=== PATIENT | female | born 1935 | race Caucasian/White ===

== ENCOUNTER 2016-07-14 11:47 | Inpatient (IN) | payer MEDICARE ==
[2016-07-14] MEDS ORDERED: IPRATROPIUM 0.5 MG/2.5 ML NEBU INHALATION STA (12:02)
[2016-07-14] MEDS ORDERED: ENALAPRILAT 1.25 MG/ML 1 ML VIAL IVP STA (12:02)
[2016-07-14] MEDS ORDERED: LEVALBUTEROL NEB 1.25 MG/3 ML AMP INHALATION STA (12:02)
[2016-07-14] MEDS ORDERED: NITROGLYCERIN-D5W PMX 50 MG in DEXTROSE/WATER 1 250ML.BAG IV ONE (12:02)
[2016-07-14] MEDS ORDERED: DILTIAZEM 5 MG/ML 5 ML VIAL IVP STA (12:02)
[2016-07-14] MEDS ORDERED: DILTIAZEM 125 MG in SODIUM CHLORIDE 0.9% 100 ML IV ONE (12:02)
--- NOTE | 2016-07-14 12:12 | ED ---
General Adult HPI - General Chief complaint: Shortness of Breath Stated complaint: ELI Time Seen by Provider: 07/14/16 11:48 Source: patient, RN notes reviewed, old records reviewed Mode of arrival: EMS Limitations: no limitations - History of Present Illness Initial comments: This is an 81-year-old female to the ER for evaluation. Face patient presents for evaluation of shortness of breath severe shortness of breath in transport. Patient's brought in by transport and EMS as she is respiratory failure secondary to A. 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 History is obtained from EMS and the chart - Related Data Home Medications Medication Instructions Recorded Confirmed Montelukast [Singulair] 10 mg PO HS 09/29/13 05/13/16 Budesonide [Pulmicort] 1 mg INHALATION RT-BID 06/30/14 05/13/16 Allopurinol [Zyloprim] 300 mg PO DAILY 08/01/14 05/13/16 Calcitriol 0.25 mcg PO DAILY 08/01/14 05/13/16 Formoterol Fumarate [Perforomist] 20 mcg INHALATION RT-BID 08/01/14 05/13/16 Furosemide [Lasix] 40 mg PO DAILY 08/01/14 05/13/16 Insulin Glargine [Lantus] 40 unit SQ HS 08/01/14 05/13/16 predniSONE 5 mg PO SUTUTHSA 08/01/14 05/13/16 Acetaminophen [Tylenol] 650 mg PO Q6H PRN 05/04/16 05/13/16 Cholecalciferol [Vitamin D3] 2,000 unit PO DAILY 05/04/16 05/13/16 Insulin Aspart [NovoLOG] See Protocol SQ ACHS 05/04/16 05/13/16 Pregabalin [Lyrica] 75 mg PO BID 05/04/16 05/13/16 Verapamil HCl [Verapamil ER] 180 mg PO HS 05/04/16 05/13/16 predniSONE 2.5 mg PO MOWEFR 05/04/16 05/13/16 Potassium Chloride ER [K-Dur 10] 10 meq PO BID 05/13/16 05/13/16 Previous Rx's Medication Instructions Recorded Metoprolol Tartrate [Lopressor] 50 mg PO BID tab 07/10/14 Ferrous Sulfate [Feosol] 325 mg PO DAILY #30 tab 05/18/16 Pantoprazole Sodium [Protonix] 40 mg PO BID #60 tablet. 05/18/16 Allergies Allergy/AdvReac Type Severity Reaction Status Date / Time penicillin G Allergy Severe Unknown Verified 05/13/16 16:33 albuterol Allergy Unknown Verified 05/13/16 16:33 arformoterol tartrate Allergy Unknown Verified 05/13/16 16:33 [From Brovana] ceftriaxone sodium Allergy Unknown Verified 05/13/16 16:33 [From Rocephin] meperidine HCl [From Demerol] AdvReac Nausea & Verified 05/13/16 16:33 Vomiting Sulfa (Sulfonamide AdvReac Unknown Verified 05/13/16 18:33 Antibiotics) Review of Systems ROS Statement: Those systems with pertinent positive or pertinent negative responses have been documented in the HPI. ROS Other: All systems not noted in ROS Statement are negative. Past Medical History Past Medical History: Atrial Fibrillation, Asthma, COPD, Diabetes Mellitus, Hearing Disorder / Deafness, Hypertension, Osteoarthritis (OA), Pneumonia, Renal Disease, Vascular Disorder Additional Past Medical History / Comment(s): Sepsis History of Any Multi-Drug Resistant Organisms: None Reported Past Surgical History: AICD, Appendectomy, Heart Catheterization, Hysterectomy, Pacemaker Additional Past Surgical History / Comment(s): cataract surgery 2011 Past Anesthesia/Blood Transfusion Reactions: No Reported Reaction Type of Cardiac Device: Permanent Pacemaker Device Placement Date:: 2011 Past Psychological History: No Psychological Hx Reported Smoking Status: Never smoker Past Alcohol Use History: None Reported Past Drug Use History: None Reported - Past Family History Mother Family Medical History: Cancer Additional Family Medical History / Comment(s): Hodgkins General Exam Limitations: no limitations General appearance: alert, anxious, in distress Head exam: Present: atraumatic, normocephalic, normal inspection Eye exam: Present: normal appearance, PERRL, EOMI. Absent: scleral icterus, conjunctival injection, periorbital swelling ENT exam: Present: normal exam, mucous membranes moist Neck exam: Present: normal inspection. Absent: tenderness, meningismus, lymphadenopathy Respiratory exam: Present: normal lung sounds bilaterally, respiratory distress , rales, accessory muscle use, decreased breath sounds, prolonged expiratory. Absent: wheezes, rhonchi, stridor Cardiovascular Exam: Present: tachycardia, irregular rhythm, normal heart sounds. Absent: systolic murmur, diastolic murmur, rubs, gallop, clicks GI/Abdominal exam: Present: soft, normal bowel sounds. Absent: distended, tenderness, guarding, rebound, rigid Extremities exam: Present: normal inspection, full ROM, normal capillary refill. Absent: tenderness, pedal edema, joint swelling, calf tenderness Back exam: Present: normal inspection Neurological exam: Present: alert, oriented X3, CN II-XII intact Psychiatric exam: Present: normal affect, normal mood Skin exam: Present: warm, dry, intact, normal color. Absent: rash Course Vital Signs 07/14/16 11:52 Temperature 97.5 F L Pulse Rate 114 H Respiratory 25 H Rate Blood Pressure 190/104 O2 Sat by Pulse 90 L Oximetry - Reevaluation(s) Reevaluation #1: 07/14/16 12:41 Did speak with transient physician regarding patient Reevaluation #2: 07/14/16 12:41 Patient notes a be in A. fib with RVR with severe hypertension, patient will be treated hemodynamically EKG Findings - EKG Comments: EKG Findings:: EKG shows A. fib with RVR rate 136, QRS 100, QTC 4:30 Medical Decision Making - Medical Decision Making 81 female the ER for evaluation of severe shortness of breath as a transfer patient, on BiPAP A. fib with RVR severe hypertension CHF with acute pulmonary edema secondary to hypertensive emergency, also with Cockman is COPD. Patient will be admitted for treatment, cardiopulmonary resuscitation and monitoring Critical Care Time Critical Care Time: Yes Total Critical Care Time: 31 Disposition Clinical Impression: Atrial fibrillation, Congestive heart failure, COPD exacerbation, Acute on chronic renal failure, Acute respiratory failure, Acute exacerbation of chronic obstructive airways disease, Systolic congestive heart failure Disposition: ADMITTED IP TO THIS HOSP Condition: Serious
[2016-07-14] MEDS ORDERED: NITROGLYCERIN SL TABS 0.4 MG TAB SUBLINGUAL PRN (12:31)
[2016-07-14] MEDS: SODIUM CHLORIDE 0.9% 1,000 ML IV SCH ×2 (13:14→23:32)
[2016-07-14 13:54] LABS: Calcium 9.7 mg/dL (8.4-10.2); Potassium 4.7 mmol/L (3.5-5.1); Total Bilirubin 0.6 mg/dL (0.2-1.3); Total Protein 6.6 g/dL (6.3-8.2)
--- NOTE | 2016-07-14 13:56 | XR ---
EXAMINATION TYPE: XR chest 1V portable DATE OF EXAM: 07/14/2016 1:51 PM CLINICAL HISTORY: Difficulty breathing and CHF progress study. TECHNIQUE: Single AP portable upright view of the chest is obtained. COMPARISON: Chest x-ray from one day earlier. FINDINGS: There is persistent cardiomegaly with dual lead pacemaker and atherosclerotic thoracic aor ta. There is persistent small bilateral pleural effusions with right basilar atelectasis and/or infil trate. There is new left hilar opacity consistent with edema and/or infiltrate. Upper lungs remain cl ear without pneumothorax. Osseous structures are intact. IMPRESSION: Cardiomegaly with small right greater than left bilateral pleural effusions and right bas ilar atelectasis and/or infiltrate all redemonstrated, new left mid lung edema and/or infiltrate is n oted.
[2016-07-14 14:06] LABS: INR 1.1 (<1.1); Partial Thromboplastin Time 21.6 sec (22.0-30.0); Prothrombin Time 11.1 sec (9.0-12.0)
[2016-07-14 14:12] LABS: Glucose,Whole Blood 132 mg/dL (75-99)
[2016-07-14 14:24] LABS: Anisocytosis Slight; Basophils % (A) 0 %; CH 30.5; Eosinophils % (A) 0 %; HCT 42.5 % (34.0-46.0); Large Platelets Flag Marked; Luc % (Auto) 1; Lymphocytes # (A) 0.8 k/uL (1.0-4.8); Lymphocytes % (A) 6 %; MCH 29.8 pg (25.0-35.0); MCHC 31.2 g/dL (31.0-37.0); MCV 95.7 fL (80.0-100.0); Monocytes # (A) 0.9 k/uL (0-1.0); Monocytes % (A) 7 %; Neutrophils # (A) 11.7 k/uL (1.3-7.7); Neutrophils % (A) 86 %; RBC 4.43 m/uL (3.80-5.40); RDW 16.3 % (11.5-15.5); WBC 13.6 k/uL (3.8-10.6); WBC (Perox) 13.45
[2016-07-14 14:25] LABS: HGB 13.2 gm/dL (11.4-16.0)
[2016-07-14 14:27] LABS: Large Platelets Present; Manual Review Performed
[2016-07-14 14:27] LABS: Troponin I 0.055 ng/mL (0.000-0.034)
[2016-07-14] MEDS: IPRATROPIUM 0.5 MG/2.5 ML NEBU INHALATION SCH ×3 (15:47→23:02)
[2016-07-14] MEDS: LEVALBUTEROL NEB (CONC) 1.25 MG/0.5 ML AMP INHALATION SCH ×3 (15:47→23:02)
[2016-07-14] MEDS ORDERED: IPRATROPIUM-ALBUTEROL 3 ML NEB INHALATION SCH (16:00)
[2016-07-14] MEDS: methylPREDNISolone SOD SUCCI 125 MG/2 ML VIAL IV SCH (18:08)
--- NOTE | 2016-07-14 18:37 | P.CNPUL ---
History of Present Illness Consult date: 07/14/16 Reason for consult: dyspnea History of present illness: 81-year-old female patient, obese with known history of chronic atrial fibrillation, CHF with diastolic dysfunction, sick sinus syndrome with previous pacemaker insertion along with hypertension and hyperlipidemia and peripheral vascular disease who comes into the hospital because of worsening shortness of breath. She has had hospitalizations over the past few years , the most recent of which was in April 2016 when the patient was in the hospital for GI bleeding. During this current admission, the patient came in for increased shortness of breath. She was a 2 fibrillation with rapid ventricular response. She was transferred from [place] on a BiPAP and subsequently she was admitted to the intensive care unit for further evaluation and management. Currently the patient on a BiPAP at a pressure of 10 over 5 and FiO2 of 40%. She is also on a Cardizem drip at the rate of 10 mg an hour. Chest x-ray showed cardiomegaly with small right more than left sided pleural effusion and right basilar infiltrate and there is a new left midlung infiltration also noted. The patient was suspected to have acute CHF and the patient was started on IV Lasix 40 mg every 12 hours and she is producing adequate amount of urine output. Nevertheless, the possibility of a pneumonia cannot be completely excluded. She has no fever. No chills. No significant sputum production. No DVT or pulmonary embolism. No aspiration. She is a lifetime nonsmoker. She has been reported to have chronic persistent bronchial asthma maintained on Pulmicort Respules twice a day and Xopenex tablets treatments 4 times a day [id number] and daily prednisone alternating between 2.5 and 5 mg daily basis. Yesterday, the patient was seen in our office and her prednisone dose was increased up to 30 mg by mouth daily. Despite this change, no major improvement and the patient and up coming to the hospital for further evaluation and treatment. There is a minimal troponin leak with a first set being at 0.05, EKG showing atrial fibrillation with rapid ventricular response without any evidence of ST segment elevations. Review of Systems 12 point review of system was done and the positive findings are old mentionable history of present illness Past Medical History Past Medical History: Atrial Fibrillation, Asthma, COPD, Diabetes Mellitus, GI Bleed, Hearing Disorder / Deafness, Hypertension, Osteoarthritis (OA), Pneumonia , Renal Disease, Vascular Disorder Additional Past Medical History / Comment(s): Chronic severe persistent bronchial asthma, chronic renal failure, morbid obesity, chronic atrial fibrillation, previous history of GI bleed attributed to anticoagulation with warfarin and diverticulosis and pyloric polyp, large antral ulceration at the site of a prior polypectomy, and based on that the patient was taken off Coumadin, diabetes mellitus, osteoarthritis, peripheral vascular disease, sick sinus syndrome and the patient has a permanent pacemaker in place, hypertension History of Any Multi-Drug Resistant Organisms: None Reported Past Surgical History: Appendectomy, Heart Catheterization, Hysterectomy, Pacemaker Additional Past Surgical History / Comment(s): cataract surgery 2011 Past Anesthesia/Blood Transfusion Reactions: No Reported Reaction Type of Cardiac Device: Permanent Pacemaker Device Placement Date:: 2011 Past Psychological History: No Psychological Hx Reported Smoking Status: Never smoker Past Alcohol Use History: None Reported Past Drug Use History: None Reported - Past Family History Mother Family Medical History: Cancer Additional Family Medical History / Comment(s): Hodgkins Medications and Allergies Home Medications Medication Instructions Recorded Confirmed Type Montelukast [Singulair] 10 mg PO HS 09/29/13 07/14/16 History Budesonide [Pulmicort] 0.5 mg INHALATION RT-BID 06/30/14 07/14/16 History Calcitriol 0.25 mcg PO DAILY 08/01/14 07/14/16 History Formoterol Fumarate [Perforomist] 20 mcg INHALATION RT-BID 08/01/14 07/14/16 History Furosemide [Lasix] 40 mg PO DAILY 08/01/14 07/14/16 History Insulin Glargine [Lantus] 10 unit SQ HS 08/01/14 07/14/16 History predniSONE 5 mg PO SUTUTHSA PRN 08/01/14 07/14/16 History Insulin Aspart [NovoLOG] See Protocol SQ ACHS 05/04/16 07/14/16 History Pregabalin [Lyrica] 75 mg PO BID 05/04/16 07/14/16 History Verapamil HCl [Verapamil ER] 180 mg PO HS 05/04/16 07/14/16 History predniSONE 2.5 mg PO MOWEFR PRN 05/04/16 07/14/16 History Allopurinol [Zyloprim] 100 mg PO DAILY 07/14/16 07/14/16 History Azithromycin [Zithromax Z-pack] See Taper PO DIRECTED 07/14/16 07/14/16 History Docusate [Colace] 100 mg PO DAILY PRN 07/14/16 07/14/16 History Ipratropium Nebulized [Atrovent 0.5 mg INHALATION RT-Q6H PRN 07/14/16 07/14/16 History Nebulized] Levalbuterol HCl [Xopenex 0.63 mg INHALATION RT-Q4H PRN 07/14/16 07/14/16 History Nebulized] Pantoprazole Sodium [Protonix] 40 mg PO DAILY 07/14/16 07/14/16 History predniSONE See Taper PO DAILY 07/14/16 07/14/16 History Allergies Allergy/AdvReac Type Severity Reaction Status Date / Time penicillin G Allergy Severe Anaphylaxis Verified 07/14/16 14:22 albuterol Allergy Rapid Verified 07/14/16 15:20 Heart Rate arformoterol tartrate Allergy Dyspnea Verified 07/14/16 15:20 [From Brovana] ceftriaxone sodium Allergy SOB Verified 07/14/16 14:22 [From Rocephin] sulfamethoxazole Allergy Unknown Verified 07/14/16 15:20 [From Bactrim] trimethoprim [From Bactrim] Allergy Unknown Verified 07/14/16 15:20 meperidine HCl [From Demerol] AdvReac Nausea & Verified 07/14/16 13:49 Vomiting Sulfa (Sulfonamide AdvReac Unknown Verified 07/14/16 15:20 Antibiotics) Physical Exam Vitals: Vital Signs Pulse BP Pulse Ox 07/14/16 14:22 99 07/14/16 13:45 123/62 07/14/16 13:40 166/77 07/14/16 13:30 170/72 07/14/16 13:13 196/96 07/14/16 13:05 112 H 07/14/16 12:50 93 Intake and Output 07/14/16 07/14/16 07/14/16 06:59 14:59 22:59 Other: Weight 92 kg Patient Weight 07/15/16 06:59 Weight 92 kg Obese, in mild degree of respiratory distress and the patient is able to tolerate a full face BiPAP mask.Head exam was generally normal. There was no scleral icterus or corneal arcus. Mucous membranes were moist. Neck is supple and there is significant crowding of the posterior oropharynx. Mild JVDs and there is no goiter or neck masses. Lungs sounds are diminished bilaterally along with some crackles at lung bases and few scattered expiratory wheeze. Heart sounds are irregular, tachycardic, positive S1-S2 and there is no significant murmurs appreciated.Abdominal exam revealed normal bowel sounds. The abdomen was soft, non-tender, and without masses, organomegaly, or appreciable enlargement of the abdominal aorta. Extremities show +1 pitting edema and there is no cyanosis or clubbing at this point. Neurologically, the patient is awake and following commands and answering questions appropriately. Results - Laboratory Findings CBC and BMP: 07/14/16 13:52 07/14/16 13:20 PT/INR, D-dimer PT 11.1 sec (9.0-12.0) 07/14/16 13:20 INR 1.1 (<1.1) 07/14/16 13:20 Abnormal lab findings: Abnormal Labs 07/14/16 07/14/16 07/14/16 13:20 13:20 13:20 WBC RDW Plt Count Neutrophils # Lymphocytes # APTT 21.6 L BUN 60 H Creatinine 1.76 H Glucose 139 H POC Glucose (mg/dL) Total Creatine Kinase 24 L Troponin I 0.055 H* 07/14/16 07/14/16 13:52 14:10 WBC 13.6 H RDW 16.3 H Plt Count 72 L D Neutrophils # 11.7 H Lymphocytes # 0.8 L APTT BUN Creatinine Glucose POC Glucose (mg/dL) 132 H Total Creatine Kinase Troponin I - Diagnostic Findings Chest x-ray: image reviewed Assessment and Plan Plan: Assessment 1 acute shortness of breath secondary to an acute CHF exacerbation. The patient has increased bilateral pulmonary vascular markings probably due to pulmonary edema in a sedation with CHF, and a superimposed pneumonia is felt to be less likely at this point. 2 acute hypoxic respiratory failure, patient is currently BiPAP dependent 3 acute asthma exacerbation 4 morbid obesity 5 chronic renal failure 6 atrial fibrillation fibrillation with rapid ventricular response currently on a Cardizem drip for rate control 7 mild troponin leak without evidence of any significant EKG changes, patient is free of any angina 8 permanent pacemaker insertion for sick sinus syndrome 9 diabetes mellitus 10 severe persistent bronchial asthma at baseline 11 GI bleed attributed to antral ulceration and the patient has been off anticoagulation for now 12 peripheral vascular disease 13 osteoarthritis 14 hypertension Plan The patient will be kept on a BiPAP throughout the night. Continue diuretics with IV Lasix 40 mg every 8 hours. Cover the patient with empiric antibiotics and will put the patient on Levaquin 500 mg every 24 hours. Continue bronchodilators. Continue systemic steroids. Cardizem drip for rate control. No and to coagulation based on her recent history of GI bleed. Echocardiogram to be repeated to assess the patient's LV function. Monitor renal function. Monitor electrolytes. Monitor cardiac enzymes. Cardiology consultation. We' ll continue to follow make further recommendations based on her progress.
[2016-07-14] MEDS ORDERED: LEVOFLOXACIN 500 MG TAB PO SCH (19:00)
--- NOTE | 2016-07-14 19:16 | CONS ---
DATE OF CONSULTATION: The patient is an 81-year-old female who was transferred from [facility] for further evaluation. Patient has a known history of severe bronchial asthma has been followed by Dr. Flaherty as well as a history of chronic atrial fibrillation followed by Dr. Citlalli Her. A few days ago she started to have dyspnea and a cough. She was seen in the emergency room and subsequently seen by Dr. Flaherty. She was started back on her diuretics and given antibiotics. Last night her breathing got much worse and she became quite dyspneic and tachypneic. She was seen in the emergency room in [place] and subsequently transferred to [facility]. The patient history is obtained from the daughter. She has no history of obstructive coronary artery disease or history of congestive heart failure according to her. She has underwent cardiac catheterization in the past and had no evidence of obstructive coronary artery disease. She had no dizziness, palpitation or syncope. She had a chronic atrial fibrillation, but has not been anticoagulated since for the last month or so because of significant GI bleeding with a hemoglobin down to 6. She has no clear PND, orthopnea. She has chronic peripheral edema but not any worse now. Her coronary risk factors are positive for history of diabetes, hypertension. She is a nonsmoker. Her lipid profile is not available to me. REVIEW OF SYSTEMS: RESPIRATORY SYSTEM: She has bronchial asthma, history of cough. No fever. GI system: She has GI bleeding as noted. system: No dysuria or hematuria. Nervous system: No history of stroke or seizure. PHYSICAL EXAMINATION: She is an 81-year-old female, alert, tachypnea, answering questions very briefly. Blood pressure 123/60 with a heart rate running in the one teens to 120s on IV Cardizem. HEAD: Normocephalic. EYES: Sclerae anicteric. NECK: No bruit. Lungs with scattered wheezes bilaterally and decreased breath sounds. HEART: Irregularly irregular. S1, S2, no S3, with systolic murmur. No diastolic murmur. No rub. ABDOMEN: Soft, obese, nontender, positive bowel sounds. No organomegaly. EXTREMITIES: Trace to 1+ edema bilaterally. Lab data showed a BUN and creatinine 60 and 1.76 which is better than she had before. Most recently in April she was 2.59. Her potassium 4.7. Hemoglobin of 13.2. White blood cells 13.6. Troponin 0.055. Her EKG revealed atrial fibrillation with rapid ventricular response and nonspecific ST-T wave changes. Her chest x-ray revealed small bilateral pleural effusion with possible new infiltrate. IMPRESSION: 1. Worsening dyspnea with underlying bronchial asthma, most likely started as an upper respiratory infection, questionable pneumonia at this time. Patient may have some element of fluid overload, probably worsened by the primary lung issue. I do not believe that we are dealing with primary cardiac issue. 2. Chronic atrial fibrillation, not anticoagulated because of gastrointestinal bleeding. 3. History of bronchial asthma. 4. History of hypertension. 5. Diabetes mellitus. RECOMMENDATIONS: From the cardiac standpoint, we will continue on IV Cardizem at this time. Patient has been started on nystatin. I will cut down the dose of her aspirin. I will give her IV diuretics. I will obtain echocardiogram with Doppler. She will be seen by Dr. David regarding her lung status and depending on her progress, further recommendation will be made. Thank you for this consult. We will follow with you.
[2016-07-14 19:25] LABS: Appearance,Urine Clear (Clear); Bacteria,Urine Rare /hpf; Bilirubin,Urine Negative (Negative); Glucose,Urine (UA) Negative (Negative); Ketones,Urine Negative (Negative); Leukocyte Esterase,Urine Negative (Negative); Mucus,Urine Rare /hpf; Nitrite,Urine Negative (Negative); Particle Count 1175; Protein,Urine 1+ (Negative); RBC,Urine 4 /hpf (0-5); Specific Gravity,Urine 1.007 (1.001-1.035); Squamous Epithelial Cell,Urine <1 /hpf (0-4); UA Billing (MACRO vs. MICRO) MICRO; Urobilinogen,Urine <2.0 mg/dL (<2.0); WBC,Urine 2 /hpf (0-5)
[2016-07-14 19:56] LABS: Creatine Kinase <20 U/L (30-135)
[2016-07-14 20:07] LABS: Creatine Kinase MB 1.2 ng/mL (0.0-2.4)
[2016-07-14 20:09] LABS: Troponin I 0.097 ng/mL (0.000-0.034)
[2016-07-14] MEDS: FUROSEMIDE 10 MG/ML 4 ML VIAL IV SCH (20:33)
[2016-07-14] MEDS: METOPROLOL TARTRATE 50 MG TAB PO SCH (20:33)
[2016-07-14] MEDS ORDERED: DILTIAZEM 125 MG in SODIUM CHLORIDE 0.9% 100 ML IV SCH (23:30)
[2016-07-15] MEDS: methylPREDNISolone SOD SUCCI 125 MG/2 ML VIAL IV SCH ×2 (01:02→06:17)
[2016-07-15] MEDS: LEVALBUTEROL NEB (CONC) 1.25 MG/0.5 ML AMP INHALATION SCH ×6 (03:32→23:38)
[2016-07-15] MEDS: IPRATROPIUM 0.5 MG/2.5 ML NEBU INHALATION SCH ×6 (03:32→23:38)
[2016-07-15 04:22] LABS: Anisocytosis Slight; Basophils % (A) 0 %; CH 30.8; CHCM 32.7; Eosinophils % (A) 0 %; HCT 39.7 % (34.0-46.0); HDW 2.49; HGB 13.1 gm/dL (11.4-16.0); Large Platelets Flag Marked; Luc # (Auto) 0.05; Luc % (Auto) 1; Lymphocytes # (A) 0.5 k/uL (1.0-4.8); Lymphocytes % (A) 7 %; MCH 31.4 pg (25.0-35.0); MCHC 33.1 g/dL (31.0-37.0); MCV 94.8 fL (80.0-100.0); Mean Platelet Volume 16.3; Monocytes # (A) 0.2 k/uL (0-1.0); Monocytes % (A) 2 %; Neutrophils # (A) 6.5 k/uL (1.3-7.7); Neutrophils % (A) 90 %; RBC 4.19 m/uL (3.80-5.40); RDW 16.3 % (11.5-15.5); WBC 7.2 k/uL (3.8-10.6); WBC (Perox) 7.83
[2016-07-15 04:50] LABS: Calcium 8.8 mg/dL (8.4-10.2); Total Bilirubin 0.6 mg/dL (0.2-1.3); Total Protein 5.7 g/dL (6.3-8.2)
[2016-07-15 04:52] LABS: Potassium 4.7 mmol/L (3.5-5.1)
[2016-07-15 07:43] LABS: Glucose,Whole Blood 245 mg/dL (75-99)
--- NOTE | 2016-07-15 08:11 | XR ---
EXAMINATION TYPE: XR chest 1V DATE OF EXAM: 07/15/2016 6:54 AM COMPARISON: 07/14/2016 HISTORY: 81-year-old female pneumonia TECHNIQUE: Single frontal view of the chest is obtained. FINDINGS: Left anterior chest wall pacemaker generator with right atrial and right ventricular leads. Heart remains mildly enlarged without discrete cartilage calcifications. There is continued small rig ht greater than left pleural effusions with prominent adjacent right basilar opacity. There is a impr ovement in the previously seen airspace opacity at the left mid lung. IMPRESSION: 1. Findings suggest CHF with improving pulmonary edema particularly in the left midlung. 2. However, there are persistent small right greater than left pleural effusions and prominent adjace nt pulmonary edema or infiltrate at the right base.
[2016-07-15] MEDS: SODIUM CHLORIDE 0.9% 1,000 ML IV SCH ×2 (08:23→17:39)
[2016-07-15] MEDS: INSULIN LISPRO (humaLOG) 300 UNIT/3 ML VIAL SQ SCH ×4 (08:23→20:56)
[2016-07-15] MEDS ORDERED: hydrALAZINE HCL 25 MG TAB PO SCH (09:00)
[2016-07-15] MEDS ORDERED: ASPIRIN 325 MG TAB PO SCH (09:00)
[2016-07-15] MEDS: FUROSEMIDE 10 MG/ML 4 ML VIAL IV SCH ×2 (09:06→20:36)
[2016-07-15] MEDS: ATORVASTATIN 80 MG TAB PO SCH (09:08)
[2016-07-15] MEDS: PANTOPRAZOLE 40 MG TABLET PO SCH (09:08)
[2016-07-15] MEDS: METOPROLOL TARTRATE 50 MG TAB PO SCH ×2 (09:08→20:00)
[2016-07-15] MEDS: ASPIRIN 81 MG CHEW PO SCH (09:08)
[2016-07-15] MEDS: VERAPAMIL SR 180 MG TABLET.ER PO SCH ×2 (09:09→20:00)
--- NOTE | 2016-07-15 09:37 | PN ---
Mrs. Juan is an 81-year-old female with known history of chronic atrial fibrillation, not anticoagulated because of recent episode of GI bleeding, history of bronchial asthma, who presented with symptoms of progressive dyspnea with prior cough, most likely appears to be a combination of upper respiratory infection and fluid overload. She is feeling much better and looks much better today. Her breathing is better. She is diuresing well. She continued to be in atrial fibrillation, but her rate is controlled. She is on IV Cardizem. She denies any chest pain. No dizziness. During the night, her blood pressure was elevated but under better control now. She denies any nausea or vomiting. She continues to be on aspirin once a day, Lipitor 80 mg daily, Lasix 40 mg IV q.12 hours, IV Cardizem and metoprolol 50 mg twice a day. PHYSICAL EXAMINATION: Blood pressure running in the 160s with the heart in the 80s. LUNGS: With decreased air exchange with few crackles and wheezes. HEART: Irregularly irregular, S1, S2, no S3, no rub with systolic murmur. ABDOMEN: Soft, obese, nontender. EXTREMITIES: No significant edema. Lab data revealed a BUN and creatinine 63 and 1.7, unchanged compared with yesterday. Potassium 4.7. Her hemoglobin is 13.1. IMPRESSION: 1. Progressive dyspnea on exertion, respiratory failure improving, probably combination of diastolic dysfunction heart failure and upper respiratory infection. 2. Chronic atrial fibrillation, not anticoagulated because of prior history of severe bleeding. 3. Renal failure, chronic. 4. History of peripheral vascular disease. 5. Minimal elevation of troponin most likely represents a type II event. RECOMMENDATION: From the cardiac standpoint, I will switch her to oral verapamil which she was on. I will continue the IV Lasix for another 24 hours. Follow her renal function. We will follow her blood pressure. It has been under good control now. If needed, hydralazine can be added to her regimen. Will review the results of her echocardiogram and depending on her progress, further recommendations to be made. Her chest x-ray today shows improvement. LAUREN
--- NOTE | 2016-07-15 09:44 | ECHOF ---
Referral Reason:afib MEASUREMENTS -------- HEIGHT: 162.6 cm WEIGHT: 91.6 kg BP: 121/94 RVIDd: 2.6 cm (< 3.3) IVSd: 1.5 cm (0.6 - 1.1) LVIDd: 3.8 cm (3.9 - 5.3) LVPWd: 1.5 cm (0.6 - 1.1) IVSs: 1.7 cm LVIDs: 3.0 cm LVPWs: 2.2 cm LA Diam: 4.9 cm (2.7 - 3.8) LAESV Index (A-L): 40.39 ml/m Ao Diam: 2.8 cm (2.0 - 3.7) AV Cusp: 2.2 cm (1.5 - 2.6) RAP: 5.00 mmHg RVSP: 41.95 mmHg FINDINGS -------- Atrial fibrillation. This was a technically good study. The left ventricular size is normal. There is moderate concentric left ventricular hypertrophy. Overall left ventricular systolic function is mild-moderately impaired with, an EF between 40 - 45 %. ant septum is hypokinetic. The right ventricle is normal in size. LA is severely dilated >40 ml/m2 The right atrium is normal in size. Aortic valve is trileaflet and is mildly thickened. Mild mitral annular calcification present. Mild mitral regurgitation is present. Mild tricuspid regurgitation present. There is mild pulmonary hypertension. The right ventricular systolic pressure, as measured by Doppler, is 41.95mmHg. Pulmonic valve appears structurally normal. The aortic root size is normal. Normal inferior vena cava with normal inspiratory collapse consistent with estimated right atrial pressure of 5 mmHg. There is no pericardial effusion. CONCLUSIONS -------- 1. Atrial fibrillation. 2. Aortic valve is trileaflet and is mildly thickened. 3. Mild mitral annular calcification present. 4. Mild mitral regurgitation is present. 5. Mild tricuspid regurgitation present. 6. There is mild pulmonary hypertension. 7. The right ventricular systolic pressure, as measured by Doppler, is 41.95mmHg. 8. Pulmonic valve appears structurally normal. 9. The aortic root size is normal. 10. Normal inferior vena cava with normal inspiratory collapse consistent with estimated right atrial pressure of 5 mmHg. 11. There is no pericardial effusion. 12. This was a technically good study. 13. The left ventricular size is normal. 14. There is moderate concentric left ventricular hypertrophy. 15. Overall left ventricular systolic function is mild-moderately impaired with, an EF between 40 - 45 %. 16. ant septum is hypokinetic. 17. The right ventricle is normal in size. 18. LA is severely dilated >40 ml/m2 19. The right atrium is normal in size. [employer]: Jeannie Stuart RDCS
[2016-07-15] MEDS: PREGABALIN 75 MG CAP PO SCH ×2 (11:24→19:59)
[2016-07-15] MEDS: ALLOPURINOL 100 MG TAB PO SCH (11:24)
[2016-07-15] MEDS ORDERED: MAGNESIUM HYDROXIDE 2,400 MG/10 ML CUP PO PRN (11:31)
[2016-07-15 12:23] LABS: Glucose,Whole Blood 260 mg/dL (75-99)
[2016-07-15] MEDS: TIGECYCLINE 50 MG in SODIUM CHLORIDE 0.9% 50 ML IVPB SCH ×2 (12:29→20:59)
[2016-07-15 12:40] LABS: Hemoglobin A1C 6.4 % (4.2-6.1)
--- NOTE | 2016-07-15 14:02 | HP ---
DATE OF ADMISSION: 07/14/2016 PRESENTING COMPLAINT: Short of breath. HISTORY OF PRESENTING COMPLAINT: A very pleasant 81-year-old patient who follows with family doctor, Dr. Turner. Patient's environmental programs specialist is Dr. David. Patient's chronic stable medical conditions include to atrial fibrillation, diabetes mellitus type 2, decreased hearing, hypertension, osteoarthritis, obesity, atrial fibrillation, diverticulosis, large antral ulceration at the site of prior polypectomy, osteoarthritis, peripheral artery disease, sick sinus syndrome with permanent pacemaker. Patient presented with 4 days of increasing shortness of breath, wheezing, minimal cough, no sputum production. No fever. Tired and rundown. The patient was admitted for the same. REVIEW OF SYSTEMS: CONSTITUTIONAL: Tired. HEENT: Decreased hearing. RESPIRATORY: As above. CARDIOVASCULAR: None. GASTROINTESTINAL: Heartburn. GENITOURINARY: None. MUSCULOSKELETAL: Aches and pains in the joints. DERMATOLOGICAL: None. HEMATOLOGIC: None. LYMPHATICS: None. PSYCHIATRY: None. NEUROLOGICAL: None. Past history of atrial fibrillation, hypertension, asthma, chronic kidney disease, diabetes, osteoarthritis, peripheral artery disease, sick sinus syndrome with permanent pacemaker, GI bleed due to antral ulceration, peripheral artery disease. PAST SURGICAL HISTORY: Appendectomy, cardiac catheterization, hysterectomy, pacemaker, cataract surgery. SOCIAL HISTORY: Lives with daughter. No smoking. No alcohol. Family history of Hodgkin's disease. HOME MEDICATIONS: 1. Colace 100 mg p.o. daily p.r.n. 2. Atrovent 0.5 nebulizer q.6 p.r.n. 3. Xopenex 0.63 inhalations q.4 p.r.n. 4. Pulmicort 0.5 b.i.d. 5. Perforomist 20 mcg b.i.d. 6. NovoLog per scale. 7. Lantus 10 units subcu q.h.s. 8. Verapamil ER 180 mg p.o. q.h.s. 9. Lyrica 75 mg p.o. b.i.d. 10. Protonix 40 mg p.o. daily. 11. Singulair 10 mg q.h.s. 12. Lopressor 50 mg p.o. b.i.d. 13. Prednisone 5 mg on Monday, Monday, , Monday and 2.5 on Monday, Monday, Monday. 14. Allopurinol 100 mg a day. 15. Iron 325 p.o. daily. 16. Calcitrol 0.25 mcg p.o. daily. 17. Prednisone taper. 18. Lasix 40 mg p.o. daily. 19. Z-Andres. ALLERGIES TO PENICILLIN, ALBUTEROL, BROVANA, ROCEPHIN, BACTRIM, SULFUR. On examination, vital signs on presentation: Temperature 97.5, pulse 114, respiration 25, blood pressure 190/104, pulse ox 98% nonrebreather. GENERAL APPEARANCE: Well built, BMI of 37, sitting up, tired -appearing short of breath. EYES: Pupils equal. Conjunctivae normal. HEENT: Oral cavity normal. NECK: JVD unable to assess. Mass not palpable. RESPIRATORY: Effort increased. LUNGS: Diminished breath sounds prolonged expiration. CARDIOVASCULAR: First and second seconds are normal. No edema. ABDOMEN: Soft, nontender. Liver and spleen not palpable. LYMPHATIC: No lymph node palpable in or axillae. PSYCHIATRY: Alert and oriented x3. Mood and affect normal. NEUROLOGICAL: Pupils equal. Cranial nerves grossly intact. Power and sensation grossly intact. INVESTIGATIONS: White count 13.6, hemoglobin 13.2. Potassium 4.7, BUN 60, creatinine 1.76. Troponin 0.055, 0.097. EKG: Atrial fibrillation with rapid ventricular response on presentation. Chest x-ray shows possible infiltrate, expiratory film. 2-D echocardiogram shows EF of 40% to 45%. ASSESSMENT: 1. Acute exacerbation of moderate persistent asthma. 2. Possible acute congestive heart failure exacerbation from systolic dysfunction; ejection fraction 40% to 45%. 3. Persistent atrial fibrillation with rapid ventricular rate. 4. Essential hypertension. 5. 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 6. Peripheral artery disease. 7. Primary osteoarthritis in multiple joints, bilateral. 8. Sick sinus syndrome with a pacemaker in place. 9. Troponin leak, probably from hemodynamic instability, doubt acute coronary syndrome. PLAN: Patient is on IV Solu-Medrol, Xopenex, IV Lasix. Cardiology and Pulmonary are consulted. Patient is in the ICU. Care was discussed with the patient.
--- NOTE | 2016-07-15 15:53 | P.PN ---
Subjective 81-year-old female patient, obese with known history of chronic atrial fibrillation, CHF with diastolic dysfunction, sick sinus syndrome with previous pacemaker insertion along with hypertension and hyperlipidemia and peripheral vascular disease who comes into the hospital because of worsening shortness of breath. She has had hospitalizations over the past few years , the most recent of which was in April 2016 when the patient was in the hospital for GI bleeding. During this current admission, the patient came in for increased shortness of breath. She was a 2 fibrillation with rapid ventricular response. She was transferred from [place] on a BiPAP and subsequently she was admitted to the intensive care unit for further evaluation and management. Currently the patient on a BiPAP at a pressure of 10 over 5 and FiO2 of 40%. She is also on a Cardizem drip at the rate of 10 mg an hour. Chest x-ray showed cardiomegaly with small right more than left sided pleural effusion and right basilar infiltrate and there is a new left midlung infiltration also noted. The patient was suspected to have acute CHF and the patient was started on IV Lasix 40 mg every 12 hours and she is producing adequate amount of urine output. Nevertheless, the possibility of a pneumonia cannot be completely excluded. She has no fever. No chills. No significant sputum production. No DVT or pulmonary embolism. No aspiration. She is a lifetime nonsmoker. She has been reported to have chronic persistent bronchial asthma maintained on Pulmicort Respules twice a day and Xopenex tablets treatments 4 times a day [id number] and daily prednisone alternating between 2.5 and 5 mg daily basis. Yesterday, the patient was seen in our office and her prednisone dose was increased up to 30 mg by mouth daily. Despite this change, no major improvement and the patient and up coming to the hospital for further evaluation and treatment. There is a minimal troponin leak with a first set being at 0.05, EKG showing atrial fibrillation with rapid ventricular response without any evidence of ST segment elevations. On 07/15/2016 the patient is being seen in follow-up. Overnight, the patient was treated with a combination of diuretics and antibiotics. Heart failure was suspected although possibility of bilateral pneumonia is also being considered nontender the patient has patchy pulmonary infiltrates in the left upper lobe and the right lower lobe. The patient is still on Lasix and she is receiving 40 mg IV every 12 hours. The patient was given Levaquin and added tigecycline based on today's chest x-ray that shows persistent consolidation/infiltration of the right lung base. Meanwhile, the patient's respiratory status is improved and the patient was taken off the BiPAP and currently is on 6 L of oxygen nasal cannula. Her pulse ox around 92% pH is less short of breath she is able to speak of. This is. She remains afebrile and there is no significant leukocytosis. Renal function is stable with a creatinine of 1.7. In terms of her atrial fibrillation, the patient was taken off the IV Cardizem and the patient was switched to verapamil oral 180 mg by mouth daily. Rate is under better control. IV Solu Medrol will also be tapered. She did develop some steroid-induced hyperglycemia. Objective - Vital Signs Vital signs: Vital Signs Temp 97.9 F 07/15/16 12:00 Pulse 107 H 07/15/16 15:39 Resp 21 07/15/16 15:00 BP 153/92 07/15/16 15:00 Pulse Ox 97 07/15/16 15:00 Intake & Output 07/14/16 07/15/16 07/15/16 18:59 06:59 18:59 Intake Total 490 1383.667 515 Output Total 1400 1885 625 Balance -910 -501.333 -110 Weight 92 kg 97.9 kg Intake: Intake, IV Titration 430 1263.667 515 Amount Diltiazem 125 mg In 30 63.667 Sodium Chloride 0.9% 100 ml @ 15 MG/HR 15 mls/hr IV .Q8H20M ONE Rx#: [id number] Diltiazem 125 mg In 15 Sodium Chloride 0.9% 100 ml @ 5 MG/HR 5 mls/hr IV .Q24H [facility] Rx#:[id number] Sodium Chloride 0.9% 1, 400 1200 500 000 ml @ 10 mls/hr IV . Q24H [facility] Rx#:[id number] Oral 60 120 Output: Urine 1400 1885 625 Other: Voiding Method Indwelling Catheter Indwelling Catheter Indwelling Catheter - Exam Obese, in mild degree of respiratory distress and the patient is able to tolerate a full face BiPAP mask.Head exam was generally normal. There was no scleral icterus or corneal arcus. Mucous membranes were moist. Neck is supple and there is significant crowding of the posterior oropharynx. Mild JVDs and there is no goiter or neck masses. Lungs sounds are diminished bilaterally along with some crackles at lung bases and few scattered expiratory wheeze. Heart sounds are irregular, less tachycardic, positive S1-S2 and there is no significant murmurs appreciated.Abdominal exam revealed normal bowel sounds. The abdomen was soft, non-tender, and without masses, organomegaly, or appreciable enlargement of the abdominal aorta. Extremities show +1 pitting edema and there is no cyanosis or clubbing at this point. Neurologically, the patient is awake and following commands and answering questions appropriately. - Labs CBC & Chem 7: 07/15/16 03:52 07/15/16 03:52 Labs: Abnormal Lab Results - Last 24 Hours (Table) 07/14/16 07/14/16 07/15/16 Range/Units 18:30 19:01 03:52 RDW (11.5-15.5) % Plt Count (150-450) k/uL Lymphocytes # (1.0-4.8) k/uL Sodium 136 L (137-145) mmol/L BUN 63 H (7-17) mg/dL Creatinine 1.70 H (0.52-1.04) mg/dL Glucose 249 H (74-99) mg/dL POC Glucose (mg/dL) (75-99) mg/dL Hemoglobin A1c (4.2-6.1) % Total Creatine Kinase <20 L (30-135) U/L Troponin I 0.097 H* (0.000-0.034) ng/mL Total Protein 5.7 L (6.3-8.2) g/dL Albumin 3.1 L (3.5-5.0) g/dL Urine Protein 1+ H (Negative) Urine Blood Trace H (Negative) Urine Bacteria Rare H (None) /hpf Urine Mucus Rare H (None) /hpf 07/15/16 07/15/16 07/15/16 Range/Units 03:52 03:52 07:41 RDW 16.3 H (11.5-15.5) % Plt Count 62 L (150-450) k/uL Lymphocytes # 0.5 L (1.0-4.8) k/uL Sodium (137-145) mmol/L BUN (7-17) mg/dL Creatinine (0.52-1.04) mg/dL Glucose (74-99) mg/dL POC Glucose (mg/dL) 245 H (75-99) mg/dL Hemoglobin A1c 6.4 H (4.2-6.1) % Total Creatine Kinase (30-135) U/L Troponin I (0.000-0.034) ng/mL Total Protein (6.3-8.2) g/dL Albumin (3.5-5.0) g/dL Urine Protein (Negative) Urine Blood (Negative) Urine Bacteria (None) /hpf Urine Mucus (None) /hpf 07/15/16 Range/Units 12:21 RDW (11.5-15.5) % Plt Count (150-450) k/uL Lymphocytes # (1.0-4.8) k/uL Sodium (137-145) mmol/L BUN (7-17) mg/dL Creatinine (0.52-1.04) mg/dL Glucose (74-99) mg/dL POC Glucose (mg/dL) 260 H (75-99) mg/dL Hemoglobin A1c (4.2-6.1) % Total Creatine Kinase (30-135) U/L Troponin I (0.000-0.034) ng/mL Total Protein (6.3-8.2) g/dL Albumin (3.5-5.0) g/dL Urine Protein (Negative) Urine Blood (Negative) Urine Bacteria (None) /hpf Urine Mucus (None) /hpf Microbiology - Last 24 Hours (Table) 07/14/16 18:30 Urine Culture - Preliminary Urine,Catheterized Assessment and Plan Plan: Assessment 1 acute shortness of breath secondary to an acute CHF exacerbation. The patient has increased bilateral pulmonary vascular markings probably due to pulmonary edema in agreement with CHF, and a superimposed pneumonia is strongly suspected. On 07/15/2016 the patient is clinically improved. The patient is being treated for both CHF and bilateral pneumonia. The patient is on IV Lasix. Antibiotic coverage includes a combination of tigecycline and Levaquin. 2 acute hypoxic respiratory failure, currently off BiPAP and the patient is on high flow oxygen 6 L/m nasal cannula 3 acute asthma exacerbation 4 morbid obesity 5 chronic renal failure, renal function is stable 6 atrial fibrillation fibrillation with rapid ventricular response , recovered and the patient was switched to oral verapamil 7 mild troponin leak without evidence of any significant EKG changes, patient is free of any angina 8 permanent pacemaker insertion for sick sinus syndrome 9 diabetes mellitus 10 severe persistent bronchial asthma at baseline 11 GI bleed attributed to antral ulceration and the patient has been off anticoagulation for now 12 peripheral vascular disease 13 osteoarthritis 14 hypertension Plan Continue tigecycline and Levaquin. Continue IV Lasix. Repeat chest x-ray in a.m. Monitor pulmonary status and weaned out the FiO2 as tolerated to maintain a saturation above 90%. The patient is on no anticoagulation based on the fact that she had a recent GI bleeding. She'll be kept in the intensive care unit for now. Discussed the case with cardiology. Discussed the case with the family. The family was updated on her condition. We'll continue to follow.
[2016-07-15 17:09] LABS: Glucose,Whole Blood 187 mg/dL (75-99)
[2016-07-15] MEDS: LEVOFLOXACIN 250 MG TAB PO SCH (19:59)
[2016-07-15] MEDS: DOCUSATE 100 MG CAP PO PRN (20:00)
[2016-07-15] MEDS: MONTELUKAST 10 MG TAB PO SCH (20:00)
[2016-07-15 20:18] LABS: Glucose,Whole Blood 273 mg/dL (75-99)
[2016-07-15] MEDS: INSULIN GLARGINE 100 UNIT/ML 10 ML VIAL SQ SCH (20:31)
[2016-07-15] MEDS: methylPREDNISolone SOD SUCCI 40 MG/ML 1 ML VIAL IV SCH (20:36)
[2016-07-16 02:09] LABS: Glucose,Whole Blood 229 mg/dL (75-99)
[2016-07-16] MEDS: INSULIN LISPRO (humaLOG) 300 UNIT/3 ML VIAL SQ SCH ×5 (02:10→21:36)
[2016-07-16] MEDS: IPRATROPIUM 0.5 MG/2.5 ML NEBU INHALATION SCH ×6 (04:07→23:53)
[2016-07-16] MEDS: LEVALBUTEROL NEB (CONC) 1.25 MG/0.5 ML AMP INHALATION SCH ×6 (04:07→23:53)
[2016-07-16 04:44] LABS: Anisocytosis Slight; Basophils % (A) 0 %; CH 30.5; CHCM 32.2; Eosinophils % (A) 0 %; HCT 41.4 % (34.0-46.0); HDW 2.49; HGB 13.1 gm/dL (11.4-16.0); Large Platelets Flag Marked; Luc # (Auto) 0.08; Luc % (Auto) 1; Lymphocytes # (A) 0.6 k/uL (1.0-4.8); Lymphocytes % (A) 6 %; MCHC 31.7 g/dL (31.0-37.0); MCV 94.9 fL (80.0-100.0); Mean Platelet Volume 14.8; Monocytes # (A) 0.5 k/uL (0-1.0); Monocytes % (A) 4 %; Neutrophils % (A) 89 %; RBC 4.36 m/uL (3.80-5.40); WBC 10.2 k/uL (3.8-10.6); WBC (Perox) 11.12
[2016-07-16 04:56] LABS: Calcium 8.8 mg/dL (8.4-10.2); Potassium 3.9 mmol/L (3.5-5.1); Total Bilirubin 0.5 mg/dL (0.2-1.3); Total Protein 5.5 g/dL (6.3-8.2)
--- NOTE | 2016-07-16 07:13 | XR ---
EXAMINATION TYPE: XR chest 1V DATE OF EXAM: 07/16/2016 6:31 AM COMPARISON: 07/15/2016 HISTORY: 81 year-old female follow-up pneumonia TECHNIQUE: Single frontal view of the chest is obtained. FINDINGS: Stable mild cardiomegaly. Left anterior chest wall pacemaker generator with right atrial and right ve ntricular leads. Mild interstitial prominence is unchanged as is a small right pleural effusion with prominent right lower lung opacity and lesser degree of patchy opacity at the left base. IMPRESSION: Overall stable exam, suspected mild residual CHF and small right pleural effusion. Prominent right ba silar consolidation, possible pneumonia persists.
[2016-07-16 07:40] LABS: Glucose,Whole Blood 206 mg/dL (75-99)
[2016-07-16] MEDS: METOPROLOL TARTRATE 25 MG TAB PO SCH ×2 (08:16→21:35)
--- NOTE | 2016-07-16 09:09 | PN ---
Mrs. Juan is an 81-year-old female with a history of bronchial asthma, history of atrial fibrillation, permanent pacemaker implantation, who presented with symptoms of worsening dyspnea. She is feeling better today. She has been diuresed and started on antibiotics. Her breathing has improved. She denies any symptoms of chest pain. She denies any dizziness or palpitation. Her appetite is good. She denies any nausea. She continues to be on aspirin, Lipitor 80 mg daily, furosemide 40 mg q.12 hours, metoprolol tartrate 50 mg twice a day, ( ), Verapamil SR 180 mg daily. PHYSICAL EXAMINATION: Blood pressure 117/70 with a heart rate in the 50s, paced. LUNGS: With decreased air exchange, no significant wheezes with few crackles. HEART: Irregular, irregular. S1, S2, no S3, no rub with a systolic murmur. ABDOMEN: Soft, nontender. EXTREMITIES: No edema. Lab data revealed BUN and creatinine of 86 and 2.0. Potassium 3.9. Hemoglobin of 13.1. IMPRESSION: 1. Pneumonia with exacerbation of her bronchial asthma. 2. Chronic atrial fibrillation and element of congestive heart failure superimposed on the pneumonia. 3. Worsening renal failure. 4. Chronic atrial fibrillation, not anticoagulated because of her recent episode of significant bleeding. 5. Permanent pacemaker implantation. 6. History of hypertension. RECOMMENDATION: I will cut down the dose of her diuretics. I will continue the present therapy. Depending on her progress, further recommendation will be made.
[2016-07-16] MEDS: ALLOPURINOL 100 MG TAB PO SCH (09:23)
[2016-07-16] MEDS: ASPIRIN 81 MG CHEW PO SCH (09:23)
[2016-07-16] MEDS: FUROSEMIDE 10 MG/ML 4 ML VIAL IV SCH (09:23)
[2016-07-16] MEDS: ATORVASTATIN 80 MG TAB PO SCH (09:23)
[2016-07-16] MEDS: PREGABALIN 75 MG CAP PO SCH ×2 (09:24→21:35)
[2016-07-16] MEDS: methylPREDNISolone SOD SUCCI 40 MG/ML 1 ML VIAL IV SCH ×2 (09:24→21:36)
[2016-07-16] MEDS: PANTOPRAZOLE 40 MG TABLET PO SCH (09:24)
[2016-07-16] MEDS: DOCUSATE 100 MG CAP PO PRN (10:52)
[2016-07-16] MEDS: TIGECYCLINE 50 MG in SODIUM CHLORIDE 0.9% 50 ML IVPB SCH ×2 (10:52→21:32)
[2016-07-16 12:11] LABS: Glucose,Whole Blood 201 mg/dL (75-99)
[2016-07-16] MEDS ORDERED: MAGNESIUM CITRATE 296 ML BOTTLE PO ONE (13:27)
[2016-07-16 16:41] LABS: Glucose,Whole Blood 229 mg/dL (75-99)
--- NOTE | 2016-07-16 18:03 | P.PN ---
Subjective 81-year-old female patient, obese with known history of chronic atrial fibrillation, CHF with diastolic dysfunction, sick sinus syndrome with previous pacemaker insertion along with hypertension and hyperlipidemia and peripheral vascular disease who comes into the hospital because of worsening shortness of breath. She has had hospitalizations over the past few years , the most recent of which was in April 2016 when the patient was in the hospital for GI bleeding. During this current admission, the patient came in for increased shortness of breath. She was a 2 fibrillation with rapid ventricular response. She was transferred from [place] on a BiPAP and subsequently she was admitted to the intensive care unit for further evaluation and management. Currently the patient on a BiPAP at a pressure of 10 over 5 and FiO2 of 40%. She is also on a Cardizem drip at the rate of 10 mg an hour. Chest x-ray showed cardiomegaly with small right more than left sided pleural effusion and right basilar infiltrate and there is a new left midlung infiltration also noted. The patient was suspected to have acute CHF and the patient was started on IV Lasix 40 mg every 12 hours and she is producing adequate amount of urine output. Nevertheless, the possibility of a pneumonia cannot be completely excluded. She has no fever. No chills. No significant sputum production. No DVT or pulmonary embolism. No aspiration. She is a lifetime nonsmoker. She has been reported to have chronic persistent bronchial asthma maintained on Pulmicort Respules twice a day and Xopenex tablets treatments 4 times a day erguio-dnt-golcs and daily prednisone alternating between 2.5 and 5 mg daily basis. Yesterday, the patient was seen in our office and her prednisone dose was increased up to 30 mg by mouth daily. Despite this change, no major improvement and the patient and up coming to the hospital for further evaluation and treatment. There is a minimal troponin leak with a first set being at 0.05, EKG showing atrial fibrillation with rapid ventricular response without any evidence of ST segment elevations. On 07/15/2016 the patient is being seen in follow-up. Overnight, the patient was treated with a combination of diuretics and antibiotics. Heart failure was suspected although possibility of bilateral pneumonia is also being considered nontender the patient has patchy pulmonary infiltrates in the left upper lobe and the right lower lobe. The patient is still on Lasix and she is receiving 40 mg IV every 12 hours. The patient was given Levaquin and added tigecycline based on today's chest x-ray that shows persistent consolidation/infiltration of the right lung base. Meanwhile, the patient's respiratory status is improved and the patient was taken off the BiPAP and currently is on 6 L of oxygen nasal cannula. Her pulse ox around 92% pH is less short of breath she is able to speak of. This is. She remains afebrile and there is no significant leukocytosis. Renal function is stable with a creatinine of 1.7. In terms of her atrial fibrillation, the patient was taken off the IV Cardizem and the patient was switched to verapamil oral 180 mg by mouth daily. Rate is under better control. IV Solu Medrol will also be tapered. She did develop some steroid-induced hyperglycemia. On 07/16/2016, the patient is being seen in [facility]U. The patient Is clinically improved however her chest x-ray still showing bilateral pulmonary infiltrates worse in the right lower lobe. I've treated this patient with a combination of tigecycline and Levaquin. She has bringing up some more sputum today and the sample will be sent for cultures. Blood cultures of been negative. The patient is currently off BiPAP. Earlier this morning she was on 6 L of oxygen by nasal cannula to maintain a saturation above 92%. The patient's also got treated with a combination of bronchodilators and steroids and her Lasix has been drop down to 40 mg every 24 hours knowing that there is has been a small rise in her creatinine. No other complaints otherwise for now. She is fully alert and awake and communicating. Objective - Vital Signs Vital signs: Vital Signs Temp 96.7 F L 07/16/16 15:46 Pulse 84 07/16/16 15:46 Resp 18 07/16/16 15:46 BP 155/79 07/16/16 15:46 Pulse Ox 97 07/16/16 15:46 Intake & Output 07/15/16 07/16/16 07/16/16 18:59 06:59 18:59 Intake Total 1155 220 100 Output Total 1385 1275 948 Balance -230 -7905 -848 Weight 93.6 kg Intake: Intake, IV Titration 655 220 100 Amount Diltiazem 125 mg In 15 Sodium Chloride 0.9% 100 ml @ 5 MG/HR 5 mls/hr IV .Q24H [facility] Rx#:[id number] Sodium Chloride 0.9% 1, 640 170 100 000 ml @ 10 mls/hr IV . Q24H [facility] Rx#:[id number] Tigecycline 50 mg In 50 Sodium Chloride 0.9% 50 ml @ 50 mls/hr IVPB Q12HR [facility] Rx#:[id number] Oral 500 Output: Urine 1385 1275 948 Other: Voiding Method Indwelling Catheter Indwelling Catheter Indwelling Catheter - Exam Obese, in mild degree of respiratory distress and the patient is able to tolerate a full face BiPAP mask.Head exam was generally normal. There was no scleral icterus or corneal arcus. Mucous membranes were moist. Neck is supple and there is significant crowding of the posterior oropharynx. Mild JVDs and there is no goiter or neck masses. Lungs sounds are diminished bilaterally along with some crackles at lung bases and few scattered expiratory wheeze. Heart sounds are irregular, less tachycardic, positive S1-S2 and there is no significant murmurs appreciated.Abdominal exam revealed normal bowel sounds. The abdomen was soft, non-tender, and without masses, organomegaly, or appreciable enlargement of the abdominal aorta. Extremities show +1 pitting edema and there is no cyanosis or clubbing at this point. Neurologically, the patient is awake and following commands and answering questions appropriately. - Labs CBC & Chem 7: 07/16/16 04:22 07/16/16 04:22 Labs: Abnormal Lab Results - Last 24 Hours (Table) 07/15/16 07/16/16 07/16/16 Range/Units 20:16 02:04 04:22 RDW 16.0 H (11.5-15.5) % Plt Count 78 L (150-450) k/uL Neutrophils # 9.0 H (1.3-7.7) k/uL Lymphocytes # 0.6 L (1.0-4.8) k/uL BUN (7-17) mg/dL Creatinine (0.52-1.04) mg/dL Glucose (74-99) mg/dL POC Glucose (mg/dL) 273 H 229 H (75-99) mg/dL Total Protein (6.3-8.2) g/dL Albumin (3.5-5.0) g/dL 07/16/16 07/16/16 07/16/16 Range/Units 04:22 07:38 12:09 RDW (11.5-15.5) % Plt Count (150-450) k/uL Neutrophils # (1.3-7.7) k/uL Lymphocytes # (1.0-4.8) k/uL BUN 86 H* (7-17) mg/dL Creatinine 2.00 H (0.52-1.04) mg/dL Glucose 214 H (74-99) mg/dL POC Glucose (mg/dL) 206 H 201 H (75-99) mg/dL Total Protein 5.5 L (6.3-8.2) g/dL Albumin 2.9 L (3.5-5.0) g/dL 07/16/16 Range/Units 16:24 RDW (11.5-15.5) % Plt Count (150-450) k/uL Neutrophils # (1.3-7.7) k/uL Lymphocytes # (1.0-4.8) k/uL BUN (7-17) mg/dL Creatinine (0.52-1.04) mg/dL Glucose (74-99) mg/dL POC Glucose (mg/dL) 229 H (75-99) mg/dL Total Protein (6.3-8.2) g/dL Albumin (3.5-5.0) g/dL Microbiology - Last 24 Hours (Table) 07/14/16 13:52 Blood Culture - Preliminary Blood No Growth after 48 hours 07/14/16 18:30 Urine Culture - Final Urine,Catheterized Assessment and Plan Plan: Assessment 1 acute shortness of breath secondary to an acute CHF exacerbation. The patient has increased bilateral pulmonary vascular markings probably due to pulmonary edema in agreement with CHF, and a superimposed pneumonia is strongly suspected. On 07/15/2016 the patient is clinically improved. The patient is being treated for both CHF and bilateral pneumonia. The patient is on IV Lasix. Antibiotic coverage includes a combination of tigecycline and Levaquin. On 07/16/2016, the patient is being seen in follow-up. The patient is still being treated for bilateral pneumonia with the same antibiotic coverage which includes a combination of tigecycline and Levaquin. Chest x-ray from today shows persistent infiltration of the lung bases and a pneumonia persists. Meanwhile the patient is still being diuresis and the diuretics have been cut down to Lasix 40 mg IV every 24 hours. Clinically improved. Chest x-ray is lagging behind. No microbial cultures of been established on this patient. Her cardiac rhythm is atrial fibrillation and the patient's rhythm is under better control for now. She is on no anticoagulants. 2 acute hypoxic respiratory failure, currently off BiPAP and the patient is on high flow oxygen 6 L/m nasal cannula 3 acute asthma exacerbation 4 morbid obesity 5 chronic renal failure, renal function is stable 6 atrial fibrillation fibrillation with rapid ventricular response , recovered and the patient was switched to oral verapamil 7 mild troponin leak without evidence of any significant EKG changes, patient is free of any angina 8 permanent pacemaker insertion for sick sinus syndrome 9 diabetes mellitus 10 severe persistent bronchial asthma at baseline 11 GI bleed attributed to antral ulceration and the patient has been off anticoagulation for now 12 peripheral vascular disease 13 osteoarthritis 14 hypertension Plan Continue tigecycline and Levaquin. Continue IV Lasix. Cut down the dose of Lasix to 40 mg every 24 hours. Monitor renal function. Repeat chest x-ray in the a.m. The patient is clinically stable and she can potentially moved to medical floor with telemetry for further monitoring.
--- NOTE | 2016-07-16 18:21 | PN ---
DATE OF SERVICE: 07/16/2016 PRESENTING COMPLAINT: Short of breath. INTERVAL HISTORY: This patient presents with acute asthma exacerbation and some element of congestive heart failure in the ICU. Patient also had A. fib with rapid ventricular rate. Breathing slightly better. Still wheezing, cough, did tolerate some diet. Sitting up in a chair at the bedside. Review of systems done for constitutional, cardiovascular, GI, pulmonary; relevant findings as above. Current medications are reviewed that include IV Lasix, IV antibiotics, IV Solu-Medrol. On examination, temperature 96.7, pulse 84, respiration 20, blood pressure 155/79, pulse ox 97% on 6 liters. GENERAL APPEARANCE: Sitting up, ( ) appearing. ( ) Normal. NECK: JVD unable to assess. ( ) LUNGS: Diminished breath sounds, prolonged expiration. CARDIOVASCULAR: First and second seconds normal. No edema. ABDOMEN: Soft, nontender. Liver and spleen not palpable. PSYCHIATRY: Alert and oriented x3. Mood and affect anxious appearing. INVESTIGATIONS: White count 10.2, hemoglobin 13.1, BUN 86, creatinine 2.0. ASSESSMENT: 1. Acute exacerbation of moderate persistent asthma, slow to respond. 2. Possible acute congestive heart failure exacerbation and systolic dysfunction; ejection fraction 40% to 45%. 3. Persistent atrial fibrillation with rapid ventricular rate on presentation with some improvement. 4. Essential hypertension. 5. 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 6. Peripheral artery disease. 7. Primary osteoarthritis of multiple joints, bilateral. 8. Sick sinus syndrome with pacemaker in place. 9. Troponin leak, probably from hemodynamic instability. PLAN: Continue current medication and treatment plan. Supportive care. Care was discussed with the patient. Encourage oral intake.
[2016-07-16] MEDS: SODIUM CHLORIDE 0.9% 1,000 ML IV SCH (18:37)
[2016-07-16 21:11] LABS: Glucose,Whole Blood 200 mg/dL (75-99)
[2016-07-16] MEDS: LEVOFLOXACIN 250 MG TAB PO SCH (21:35)
[2016-07-16] MEDS: VERAPAMIL SR 180 MG TABLET.ER PO SCH (21:36)
[2016-07-16] MEDS: MONTELUKAST 10 MG TAB PO SCH (21:36)
[2016-07-16] MEDS: INSULIN GLARGINE 100 UNIT/ML 10 ML VIAL SQ SCH (21:36)
[2016-07-17 03:29] LABS: Glucose,Whole Blood 152 mg/dL (75-99)
[2016-07-17] MEDS: INSULIN LISPRO (humaLOG) 300 UNIT/3 ML VIAL SQ SCH ×5 (03:37→21:10)
[2016-07-17] MEDS: LEVALBUTEROL NEB (CONC) 1.25 MG/0.5 ML AMP INHALATION SCH ×6 (03:51→20:32)
[2016-07-17] MEDS: IPRATROPIUM 0.5 MG/2.5 ML NEBU INHALATION SCH ×6 (03:51→20:32)
[2016-07-17 06:14] LABS: Basophils % (A) 0 %; CH 31.1; Eosinophils % (A) 0 %; HCT 40.1 % (34.0-46.0); HDW 2.43; HGB 12.9 gm/dL (11.4-16.0); Large Platelets Flag Marked; Luc % (Auto) 1; Lymphocytes # (A) 0.7 k/uL (1.0-4.8); Lymphocytes % (A) 7 %; MCH 30.4 pg (25.0-35.0); MCHC 32.1 g/dL (31.0-37.0); MCV 94.8 fL (80.0-100.0); Mean Platelet Volume 15.5; Monocytes # (A) 0.4 k/uL (0-1.0); Monocytes % (A) 4 %; Neutrophils # (A) 8.7 k/uL (1.3-7.7); Neutrophils % (A) 88 %; RBC 4.23 m/uL (3.80-5.40); RDW 15.9 % (11.5-15.5); WBC 9.9 k/uL (3.8-10.6); WBC (Perox) 10.74
[2016-07-17 06:19] LABS: Calcium 8.6 mg/dL (8.4-10.2); Potassium 4.7 mmol/L (3.5-5.1); Total Bilirubin 0.6 mg/dL (0.2-1.3); Total Protein 5.4 g/dL (6.3-8.2)
[2016-07-17 06:24] LABS: Glucose,Whole Blood 143 mg/dL (75-99)
--- NOTE | 2016-07-17 08:08 | XR ---
EXAMINATION TYPE: XR chest 1V DATE OF EXAM: 07/17/2016 7:23 AM COMPARISON: 07/16/2016 HISTORY: 81 year-old female follow-up pneumonia TECHNIQUE: Single frontal view of the chest is obtained. FINDINGS: Persistent moderate cardiomegaly. Left anterior chest wall pacemaker generator with right atrial and ventricular leads. Mild interstitial prominence shows some improvement. Small right pleural effusion remains and there is improving aeration at the right lower lung. IMPRESSION: 1. Findings suggest residual mild CHF, improving from prior. 2. Small right pleural effusion remains though there is improving infiltrate in the right lower lung.
[2016-07-17 08:16] LABS: Large Platelets Present; Polychromasia Present
[2016-07-17] MEDS: PANTOPRAZOLE 40 MG TABLET PO SCH (08:27)
[2016-07-17] MEDS: METOPROLOL TARTRATE 25 MG TAB PO SCH ×2 (08:27→19:55)
[2016-07-17] MEDS: ASPIRIN 81 MG CHEW PO SCH (08:27)
[2016-07-17] MEDS: ATORVASTATIN 80 MG TAB PO SCH (08:27)
[2016-07-17] MEDS: PREGABALIN 75 MG CAP PO SCH ×2 (08:27→19:56)
[2016-07-17] MEDS: ALLOPURINOL 100 MG TAB PO SCH (08:28)
[2016-07-17] MEDS: methylPREDNISolone SOD SUCCI 40 MG/ML 1 ML VIAL IV SCH ×2 (08:28→19:56)
[2016-07-17] MEDS: TIGECYCLINE 50 MG in SODIUM CHLORIDE 0.9% 50 ML IVPB SCH ×2 (08:28→19:53)
[2016-07-17] MEDS ORDERED: ATORVASTATIN 40 MG TAB PO SCH (09:14)
[2016-07-17] MEDS ORDERED: SODIUM CHLORIDE 0.9% 1,000 ML IV SCH (09:15)
--- NOTE | 2016-07-17 09:40 | PN ---
Mrs. Juan is an 81-year-old female with a history of severe bronchial asthma, history of chronic atrial fibrillation, not anticoagulated because recent episodes of severe GI bleeding who presented with symptoms of dyspnea and progressive weakness. She was noted to have severe exacerbation of her bronchial asthma. She has a history of permanent pacemaker implantation. She is feeling much better today. Her breathing is better. She denies any symptoms of chest pain. She denies any dizziness or palpitation. MEDICATIONS INCLUDE: Lasix 40 mg IV daily, Lipitor 80 mg daily, insulin, metoprolol tartrate 25 mg twice a day, Protonix and Verapamil SR 180 mg daily. PHYSICAL EXAMINATION: Blood pressure 124/70 with a heart in the 70s. LUNGS: With minimal wheezes much improved air exchange. HEART: Irregularly irregular, S1, S2, no S3. No rub with a systolic murmur. ABDOMEN: Soft, nontender. EXTREMITIES: No edema. Lab data revealed BUN and creatinine of ( ). Potassium 4.7. Hemoglobin 12.9, platelet count 98,000. IMPRESSION: 1. Exacerbation of chronic obstructive lung disease with possible pneumonia improving. 2. Superimposed congestive heart failure, improving. 3. Worsening renal function. Worsened by the diuresis. 4. History of chronic atrial fibrillation, not anticoagulated because of significant GI bleeding recently that needs to be assessed at a later time. 5. History of hypertension. 6. Status post permanent pacemaker implantation. 7. Mildly to moderately impaired left ventricular systolic function by echocardiography. RECOMMENDATIONS: I will stop her IV Lasix completely. I will give her gentle hydration. Follow her renal function. Continue the rest of her medical regimen. Follow her breathing status and depending on that, further recommendation will be made. Those findings were discussed with the patient and her daughter.
[2016-07-17] MEDS: FUROSEMIDE 10 MG/ML 4 ML VIAL IV SCH (09:41)
--- NOTE | 2016-07-17 11:39 | P.NPCON ---
History of Present Illness - Reason for Consult Consult date: 07/17/16 acute renal failure - Chief Complaint Acute kidney injury with shortness of breath. - History of Present Illness This is a 9-year-old female known to us with chronic kidney disease with somewhat fluctuating creatinines. She is admitted now with worsening shortness of breath. Her creatinine has gone up from 1.76-2.4 to in the hospital. She was on Lasix her dose has been decreased. Patient remained short of breath. No chest pain no cough fevers chills no nausea vomiting diarrhea abdominal pain. Appetite is fair. She is known with diabetes for approximately 15 years with peripheral neuropathy , no laser treatment. She has had sick sinus syndrome pacer and she is known with peripheral vascular disease. Her left dorsalis pedis was absent feet are warm though. She has atrial fibrillation and was uncontrolled and now is controlled. She is able to walk without any dizziness. No dysuria frequency or bladder problems. Past Medical History Past Medical History: Atrial Fibrillation, Asthma, COPD, Diabetes Mellitus, GI Bleed, Hearing Disorder / Deafness, Hypertension, Osteoarthritis (OA), Pneumonia , Renal Disease, Vascular Disorder Additional Past Medical History / Comment(s): Chronic severe persistent bronchial asthma, chronic renal failure, morbid obesity, chronic atrial fibrillation, previous history of GI bleed attributed to anticoagulation with warfarin and diverticulosis and pyloric polyp, large antral ulceration at the site of a prior polypectomy, and based on that the patient was taken off Coumadin, diabetes mellitus, osteoarthritis, peripheral vascular disease, sick sinus syndrome and the patient has a permanent pacemaker in place, hypertension History of Any Multi-Drug Resistant Organisms: None Reported Past Surgical History: Appendectomy, Heart Catheterization, Hysterectomy, Pacemaker Additional Past Surgical History / Comment(s): cataract surgery 2011 Past Anesthesia/Blood Transfusion Reactions: No Reported Reaction Type of Cardiac Device: Permanent Pacemaker Device Placement Date:: 2011 Past Psychological History: No Psychological Hx Reported Smoking Status: Never smoker Past Alcohol Use History: None Reported Past Drug Use History: None Reported - Past Family History Mother Family Medical History: Cancer Additional Family Medical History / Comment(s): Hodgkins Medications and Allergies Home Medications Medication Instructions Recorded Confirmed Type Montelukast [Singulair] 10 mg PO HS 09/29/13 07/14/16 History Budesonide [Pulmicort] 0.5 mg INHALATION RT-BID 06/30/14 07/14/16 History Calcitriol 0.25 mcg PO DAILY 08/01/14 07/14/16 History Formoterol Fumarate [Perforomist] 20 mcg INHALATION RT-BID 08/01/14 07/14/16 History Furosemide [Lasix] 40 mg PO DAILY 08/01/14 07/14/16 History Insulin Glargine [Lantus] 10 unit SQ HS 08/01/14 07/14/16 History predniSONE 5 mg PO SUTUTHSA PRN 08/01/14 07/14/16 History Insulin Aspart [NovoLOG] See Protocol SQ ACHS 05/04/16 07/14/16 History Pregabalin [Lyrica] 75 mg PO BID 05/04/16 07/14/16 History Verapamil HCl [Verapamil ER] 180 mg PO HS 05/04/16 07/14/16 History predniSONE 2.5 mg PO MOWEFR PRN 05/04/16 07/14/16 History Allopurinol [Zyloprim] 100 mg PO DAILY 07/14/16 07/14/16 History Azithromycin [Zithromax Z-pack] See Taper PO DIRECTED 07/14/16 07/14/16 History Docusate [Colace] 100 mg PO DAILY PRN 07/14/16 07/14/16 History Ipratropium Nebulized [Atrovent 0.5 mg INHALATION RT-Q6H PRN 07/14/16 07/14/16 History Nebulized] Levalbuterol HCl [Xopenex 0.63 mg INHALATION RT-Q4H PRN 07/14/16 07/14/16 History Nebulized] Pantoprazole Sodium [Protonix] 40 mg PO DAILY 07/14/16 07/14/16 History predniSONE See Taper PO DAILY 07/14/16 07/14/16 History Allergies Allergy/AdvReac Type Severity Reaction Status Date / Time penicillin G Allergy Severe Anaphylaxis Verified 07/14/16 14:22 albuterol Allergy Rapid Verified 07/14/16 15:20 Heart Rate arformoterol tartrate Allergy Dyspnea Verified 07/14/16 15:20 [From Brovana] ceftriaxone sodium Allergy SOB Verified 07/14/16 14:22 [From Rocephin] sulfamethoxazole Allergy Unknown Verified 07/14/16 15:20 [From Bactrim] trimethoprim [From Bactrim] Allergy Unknown Verified 07/14/16 15:20 meperidine HCl [From Demerol] AdvReac Nausea & Verified 07/14/16 13:49 Vomiting Sulfa (Sulfonamide AdvReac Unknown Verified 07/14/16 15:20 Antibiotics) Physical Exam Vitals: Vital Signs Temp Pulse Pulse Resp BP BP Pulse Ox 07/17/16 09:18 48 L 07/17/16 09:06 48 L 07/17/16 08:00 97.3 F L 51 L 18 103/55 99 07/17/16 04:03 78 07/17/16 04:00 96.8 F L 79 18 124/71 98 07/17/16 03:51 77 07/17/16 00:21 76 07/17/16 00:11 76 07/17/16 00:00 87 18 151/80 98 07/16/16 20:00 96.8 F L 101 H 18 143/93 95 07/16/16 19:18 78 07/16/16 19:06 76 07/16/16 15:46 96.7 F L 84 18 155/79 97 07/16/16 13:00 81 19 150/71 97 07/16/16 12:44 78 07/16/16 12:28 78 07/16/16 12:00 97.8 F 85 33 H 142/77 95 Intake and Output 07/16/16 07/17/16 07/17/16 22:59 06:59 14:59 Intake Total 260 90 Output Total 600 Balance 260 -600 90 Intake: Intake, IV Titration 20 Amount Sodium Chloride 0.9% 1, 20 000 ml @ 10 mls/hr IV . Q24H [facility] Rx#:[id number] Oral 240 90 Output: Urine 600 Other: Voiding Method Toilet Toilet Bedside Commode Bedside Commode # Voids 1 1 Weight 89 kg On examination she is awake alert oriented somewhat short of breath. A chin exam no JVP neck is supple no facial asymmetry no carotid bruit Liters are equal Lungs are clear to auscultation except for end expiratory wheezing good air entry no dullness to percussion Heart sounds are unremarkable for any murmur rub gallop Abdomen soft nontender no organomegaly status masses Extremity exam was trace edema there is some chronic mentation the skin. Neurologically awake alert oriented no asterixis no focal motor deficit. Results - Lab Results Most recent lab results Calcium 8.6 mg/dL (8.4-10.2) 07/17/16 05:44 Magnesium 1.7 mg/dL (1.6-2.3) 07/16/16 04:22 07/17/16 05:44 07/17/16 05:44 Assessment and Plan Plan: Impression. 1. Acute kidney injury likely from intravascular volume depletion. Her chest x -ray is improved her lungs are fairly clear. She remained short of breath and has some mild wheezing though. Lasix dose has been reduced. #2 chronic kidney disease with creatinine off 1.76 on admission and up to 2.42 today. Her previous creatinines have been in the 2.1-2.2 range in April 2016. Urinalysis shows 1+ protein on 07/14/2016, therefore etiology is mostly nephrosclerosis and possibly diabetic nephropathy. 3. Remained short of breath although the chest x-ray is improved there is some bronchospasm.. 4. Chronic thrombocytopenia cause not very clear. 5. History of sick sinus syndrome, pacemaker, atrial fibrillation controlled. 6. Cardiomegaly, left ventricular ejection fraction is 40-45% by echocardiogram dated 07/14/2016 Recommendation. Check orthostatic changes, Agree with the reduction low 6 Lasix dose. Treat her bronchospasm with appropriate nebulizers. If creatinine continues to go up we will further evaluate for acute interstitial nephritis. Nothing to suggest a bladder outlet obstruction at this time. Thank you for this consultation and call us if necessary
[2016-07-17 12:07] LABS: Glucose,Whole Blood 185 mg/dL (75-99)
[2016-07-17] MEDS: SODIUM CHLORIDE 0.9% 1,000 ML IV SCH (12:28)
[2016-07-17 17:12] LABS: Glucose,Whole Blood 223 mg/dL (75-99)
--- NOTE | 2016-07-17 17:33 | P.PN ---
Subjective 81-year-old female patient, obese with known history of chronic atrial fibrillation, CHF with diastolic dysfunction, sick sinus syndrome with previous pacemaker insertion along with hypertension and hyperlipidemia and peripheral vascular disease who comes into the hospital because of worsening shortness of breath. She has had hospitalizations over the past few years , the most recent of which was in April 2016 when the patient was in the hospital for GI bleeding. During this current admission, the patient came in for increased shortness of breath. She was a 2 fibrillation with rapid ventricular response. She was transferred from [facility] on a BiPAP and subsequently she was admitted to the intensive care unit for further evaluation and management. Currently the patient on a BiPAP at a pressure of 10 over 5 and FiO2 of 40%. She is also on a Cardizem drip at the rate of 10 mg an hour. Chest x-ray showed cardiomegaly with small right more than left sided pleural effusion and right basilar infiltrate and there is a new left midlung infiltration also noted. The patient was suspected to have acute CHF and the patient was started on IV Lasix 40 mg every 12 hours and she is producing adequate amount of urine output. Nevertheless, the possibility of a pneumonia cannot be completely excluded. She has no fever. No chills. No significant sputum production. No DVT or pulmonary embolism. No aspiration. She is a lifetime nonsmoker. She has been reported to have chronic persistent bronchial asthma maintained on Pulmicort Respules twice a day and Xopenex tablets treatments 4 times a day [id number] and daily prednisone alternating between 2.5 and 5 mg daily basis. Yesterday, the patient was seen in our office and her prednisone dose was increased up to 30 mg by mouth daily. Despite this change, no major improvement and the patient and up coming to the hospital for further evaluation and treatment. There is a minimal troponin leak with a first set being at 0.05, EKG showing atrial fibrillation with rapid ventricular response without any evidence of ST segment elevations. On 07/15/2016 the patient is being seen in follow-up. Overnight, the patient was treated with a combination of diuretics and antibiotics. Heart failure was suspected although possibility of bilateral pneumonia is also being considered nontender the patient has patchy pulmonary infiltrates in the left upper lobe and the right lower lobe. The patient is still on Lasix and she is receiving 40 mg IV every 12 hours. The patient was given Levaquin and added tigecycline based on today's chest x-ray that shows persistent consolidation/infiltration of the right lung base. Meanwhile, the patient's respiratory status is improved and the patient was taken off the BiPAP and currently is on 6 L of oxygen nasal cannula. Her pulse ox around 92% pH is less short of breath she is able to speak of. This is. She remains afebrile and there is no significant leukocytosis. Renal function is stable with a creatinine of 1.7. In terms of her atrial fibrillation, the patient was taken off the IV Cardizem and the patient was switched to verapamil oral 180 mg by mouth daily. Rate is under better control. IV Solu Medrol will also be tapered. She did develop some steroid-induced hyperglycemia. On 07/16/2016, the patient is being seen in [facility]. The patient Is clinically improved however her chest x-ray still showing bilateral pulmonary infiltrates worse in the right lower lobe. I've treated this patient with a combination of tigecycline and Levaquin. She has bringing up some more sputum today and the sample will be sent for cultures. Blood cultures of been negative. The patient is currently off BiPAP. Earlier this morning she was on 6 L of oxygen by nasal cannula to maintain a saturation above 92%. The patient's also got treated with a combination of bronchodilators and steroids and her Lasix has been drop down to 40 mg every 24 hours knowing that there is has been a small rise in her creatinine. No other complaints otherwise for now. She is fully alert and awake and communicating. On 07/17/2016, the patient is being seen in follow-up. The patient was moved out of the intensive care unit yesterday. Of cover this patient with a combination of tigecycline and Levaquin for potential patchy bilateral pneumonia. On today's chest x-ray the patchy pneumonic infiltrates in the right lung is improving yet the patient still has some underlying CHF findings. The patient is of BiPAP. She is on 6 L of oxygen by nasal cannula and we haven't been able to wean her off the oxygen over the past 24 hours. She gets short of breath with minimal to moderate activity and she is very comfortable at rest. No fever. No chills. No other new complaints otherwise for now. She remains on IV Solu Medrol 40 g every 12 hours in addition to Xopenex nebulized treatments around the clock. The patient has developed prerenal azotemia with a creatinine coming up to 2.4 and she was taken off the Lasix. Objective - Vital Signs Vital signs: Vital Signs Temp 95.2 F L 07/17/16 15:55 Pulse 68 07/17/16 16:27 Resp 18 07/17/16 15:55 BP 145/94 07/17/16 15:55 Pulse Ox 95 07/17/16 15:55 Intake & Output 07/16/16 07/17/16 07/17/16 18:59 06:59 18:59 Intake Total 340 20 355 Output Total 948 600 Balance -608 -580 355 Weight 89 kg Intake: IV 265 Sodium Chloride 0.9% 1, 15 000 ml @ 10 mls/hr IV . Q24H [facility] Rx#:[id number] Sodium Chloride 0.9% 1, 200 000 ml @ 50 mls/hr IV . Q20H [facility] Rx#:[id number] Tigecycline 50 mg In 50 Sodium Chloride 0.9% 50 ml @ 50 mls/hr IVPB Q12HR [facility] Rx#:[id number] Intake, IV Titration 100 20 Amount Sodium Chloride 0.9% 1, 100 20 000 ml @ 10 mls/hr IV . Q24H [facility] Rx#:[id number] Oral 240 90 Output: Urine 948 600 Other: Voiding Method Indwelling Catheter Toilet Bedside Commode # Voids 1 1 - Exam Obese, in mild degree of respiratory distress and the patient is able to tolerate a full face BiPAP mask.Head exam was generally normal. There was no scleral icterus or corneal arcus. Mucous membranes were moist. Neck is supple and there is significant crowding of the posterior oropharynx. Mild JVDs and there is no goiter or neck masses. Lungs sounds are diminished bilaterally along with some crackles at lung bases and few scattered expiratory wheeze. Heart sounds are irregular, less tachycardic, positive S1-S2 and there is no significant murmurs appreciated.Abdominal exam revealed normal bowel sounds. The abdomen was soft, non-tender, and without masses, organomegaly, or appreciable enlargement of the abdominal aorta. Extremities show +1 pitting edema and there is no cyanosis or clubbing at this point. Neurologically, the patient is awake and following commands and answering questions appropriately. - Labs CBC & Chem 7: 07/17/16 05:44 07/17/16 05:44 Labs: Abnormal Lab Results - Last 24 Hours (Table) 07/16/16 07/17/16 07/17/16 Range/Units 21:09 03:28 05:44 RDW 15.9 H (11.5-15.5) % Plt Count 98 L (150-450) k/uL Neutrophils # 8.7 H (1.3-7.7) k/uL Lymphocytes # 0.7 L (1.0-4.8) k/uL BUN (7-17) mg/dL Creatinine (0.52-1.04) mg/dL Glucose (74-99) mg/dL POC Glucose (mg/dL) 200 H 152 H (75-99) mg/dL Total Protein (6.3-8.2) g/dL Albumin (3.5-5.0) g/dL 07/17/16 07/17/16 07/17/16 Range/Units 05:44 06:23 12:00 RDW (11.5-15.5) % Plt Count (150-450) k/uL Neutrophils # (1.3-7.7) k/uL Lymphocytes # (1.0-4.8) k/uL BUN 116 H* (7-17) mg/dL Creatinine 2.42 H (0.52-1.04) mg/dL Glucose 150 H (74-99) mg/dL POC Glucose (mg/dL) 143 H 185 H (75-99) mg/dL Total Protein 5.4 L (6.3-8.2) g/dL Albumin 2.8 L (3.5-5.0) g/dL 07/17/16 Range/Units 16:59 RDW (11.5-15.5) % Plt Count (150-450) k/uL Neutrophils # (1.3-7.7) k/uL Lymphocytes # (1.0-4.8) k/uL BUN (7-17) mg/dL Creatinine (0.52-1.04) mg/dL Glucose (74-99) mg/dL POC Glucose (mg/dL) 223 H (75-99) mg/dL Total Protein (6.3-8.2) g/dL Albumin (3.5-5.0) g/dL Microbiology - Last 24 Hours (Table) 07/14/16 13:52 Blood Culture - Preliminary Blood No Growth after 72 hours Assessment and Plan Plan: Assessment 1 acute shortness of breath secondary to an acute CHF exacerbation. The patient has increased bilateral pulmonary vascular markings probably due to pulmonary edema in agreement with CHF, and a superimposed pneumonia is strongly suspected. On 07/15/2016 the patient is clinically improved. The patient is being treated for both CHF and bilateral pneumonia. The patient is on IV Lasix. Antibiotic coverage includes a combination of tigecycline and Levaquin. On 07/16/2016, the patient is being seen in follow-up. The patient is still being treated for bilateral pneumonia with the same antibiotic coverage which includes a combination of tigecycline and Levaquin. Chest x-ray from today shows persistent infiltration of the lung bases and a pneumonia persists. Meanwhile the patient is still being diuresis and the diuretics have been cut down to Lasix 40 mg IV every 24 hours. Clinically improved. Chest x-ray is lagging behind. No microbial cultures of been established on this patient. Her cardiac rhythm is atrial fibrillation and the patient's rhythm is under better control for now. She is on no anticoagulants. On 07/17/2016, the patient is essentially the same. I will see the chest x-ray shows improvement in the right lower lobe pulmonary infiltration as the patient is being covered with broad-spectrum antibiotics. Diuretics need to be placed on hold as long as the patient has developed a acute on top of a chronic renal failure picture, the acute component being related to prerenal azotemia secondary to diuresis. 2 acute hypoxic respiratory failure, currently off BiPAP and the patient is on high flow oxygen 6 L/m nasal cannula 3 acute asthma exacerbation 4 morbid obesity 5 chronic renal failure, with an acute rise in the creatinine secondary to diuresis 6 atrial fibrillation fibrillation with rapid ventricular response , recovered and the patient was switched to oral verapamil, rate controlled 7 mild troponin leak without evidence of any significant EKG changes, patient is free of any angina 8 permanent pacemaker insertion for sick sinus syndrome 9 diabetes mellitus 10 severe persistent bronchial asthma at baseline 11 GI bleed attributed to antral ulceration and the patient has been off anticoagulation for now 12 peripheral vascular disease 13 osteoarthritis 14 hypertension Plan Continue tigecycline and Levaquin. Discontinue Lasix for today.. Monitor renal function. Repeat chest x-ray in the a.m. The patient is clinically stable and she can potentially moved to medical floor with telemetry for further monitoring. Wean off FiO2. Anticipate further improvement over the next 24-48 hours. We'll continue to follow.
--- NOTE | 2016-07-17 19:00 | PN ---
DATE OF SERVICE: 07/17/2016 PRESENTING COMPLAINT: Short of breath. INTERVAL HISTORY: This is a patient who presented with acute asthma exacerbation, element of CHF, also had atrial fibrillation with rapid ventricular rate, also felt to have pneumonia by pulmonary and his antibiotics for the same. The patient did tolerate some diet. Family is at the bedside. The patient is short of breath, tired. Review of systems done for constitutional, cardiovascular, GI, pulmonary; relevant findings as above. Current medications are reviewed that include IV Tigecycline, Solu-Medrol. On examination, temperature 96.3, pulse 59, respiration 18, blood pressure 125/62, pulse ox 95% on 6 liters. GENERAL APPEARANCE: Sitting up, tired -appearing. EYES: Pupils equal. Conjunctivae normal. NECK: JVD unable to assess. RESPIRATORY: Effort increased. LUNGS: Prolonged expiration. CARDIOVASCULAR: First and second sounds normal. No edema. ABDOMEN: Soft, nontender. Liver and spleen not palpable. PSYCHIATRY: Alert and oriented x3. Mood and affect normal. INVESTIGATIONS: White count 9.9, hemoglobin 12.9. Potassium 4.7, BUN 116, creatinine 2.42. ASSESSMENT: 1. Acute exacerbation of moderate persistent asthma slow to respond. 2. Possible acute congestive heart failure exacerbation from systolic dysfunction, ejection fraction 40 to 45% now appears to be compensated. 3. Persistent atrial fibrillation with rapid ventricular rate on presentation. 4. Essential hypertension. 5. Acute renal failure, probably prerenal, could be an element of acute tubular necrosis. 6. 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 7. Peripheral artery disease. 8. Primary osteoarthritis of multiple joints, bilaterally. 9. Sick sinus syndrome with pacemaker in place. 10. Troponin leak probably from hemodynamic instability. 11. Acute hypoxic respiratory failure, multifactorial also. 12. Bilateral pneumonia suspected; hence, patient also on antibiotics, suspect gram-negative organism. PLAN: The patient's Lasix discontinued ( ) renal failure. Nephrology is consulted. Care was discussed with the patient. Will follow.
[2016-07-17] MEDS: MONTELUKAST 10 MG TAB PO SCH (19:55)
[2016-07-17] MEDS: LEVOFLOXACIN 250 MG TAB PO SCH (19:55)
[2016-07-17] MEDS: VERAPAMIL SR 180 MG TABLET.ER PO SCH (19:56)
[2016-07-17] MEDS: INSULIN GLARGINE 100 UNIT/ML 10 ML VIAL SQ SCH (21:09)
[2016-07-17] MEDS: DOCUSATE 100 MG CAP PO PRN (21:09)
[2016-07-17 21:10] LABS: Glucose,Whole Blood 232 mg/dL (75-99)
[2016-07-17] MEDS ORDERED: IPRATROPIUM-ALBUTEROL 3 ML NEB INHALATION PRN (22:02)
[2016-07-18] MEDS: INSULIN LISPRO (humaLOG) 300 UNIT/3 ML VIAL SQ SCH ×5 (01:19→21:32)
[2016-07-18 06:31] LABS: Glucose,Whole Blood 103 mg/dL (75-99)
[2016-07-18 06:55] LABS: Calcium 8.8 mg/dL (8.4-10.2); Potassium 5.4 mmol/L (3.5-5.1)
[2016-07-18] MEDS ORDERED: INSULIN LISPRO (humaLOG) 300 UNIT/3 ML VIAL SQ SCH (07:30)
[2016-07-18] MEDS: VERAPAMIL SR 180 MG TABLET.ER PO SCH ×2 (07:36→20:15)
[2016-07-18] MEDS: PREGABALIN 75 MG CAP PO SCH ×2 (08:11→20:15)
[2016-07-18] MEDS: ATORVASTATIN 40 MG TAB PO SCH (08:12)
[2016-07-18] MEDS: ALLOPURINOL 100 MG TAB PO SCH (08:12)
[2016-07-18] MEDS: PANTOPRAZOLE 40 MG TABLET PO SCH (08:12)
[2016-07-18] MEDS: methylPREDNISolone SOD SUCCI 40 MG/ML 1 ML VIAL IV SCH ×2 (08:12→20:15)
[2016-07-18] MEDS: METOPROLOL TARTRATE 25 MG TAB PO SCH ×2 (08:12→20:15)
[2016-07-18] MEDS: TIGECYCLINE 50 MG in SODIUM CHLORIDE 0.9% 50 ML IVPB SCH (08:12)
--- NOTE | 2016-07-18 10:11 | P.PN ---
Subjective Patient is seen in follow-up for acute kidney injury on chronic kidney disease. 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 Renal function continues to worsen with creatinine at 2.6 today. Patient's currently being treated for asthma exacerbation. She was initially receiving diuretics which were discontinued 2 days ago. She did receive gentle IV hydration yesterday which has now been discontinued. Her appetite is good. She denies any vomiting or diarrhea. Dyspnea is improving. Vital signs are stable. General: The patient appeared well nourished and normally developed. HEENT: Head exam is unremarkable. Neck is without jugular venous distension. LUNGS: Lungs are clear to auscultation and percussion. Breath sounds decreased. HEART: Rate and Rhythm are regular. First and second heart sounds normal. No murmurs, rubs or gallops. ABDOMEN: Abdominal exam reveals normal bowel sounds. Non-tender and non- distended. No evidence of peritonitis. EXTREMITITES: No clubbing, cyanosis, or edema. Objective - Vital Signs Vital signs: Vital Signs Temp 96.8 F L 07/18/16 08:00 Pulse 54 L 07/18/16 08:00 Resp 18 07/18/16 08:00 BP 119/67 07/18/16 08:00 Pulse Ox 92 L 07/18/16 08:00 Intake & Output 07/17/16 07/18/16 07/18/16 18:59 06:59 18:59 Intake Total 595 470 Output Total 300 Balance 295 470 Weight 88.6 kg Intake: IV 265 470 Sodium Chloride 0.9% 1, 15 20 000 ml @ 10 mls/hr IV . Q24H [facility] Rx#:[id number] Sodium Chloride 0.9% 1, 200 400 000 ml @ 50 mls/hr IV . Q20H [facility] Rx#:[id number] Tigecycline 50 mg In 50 50 Sodium Chloride 0.9% 50 ml @ 50 mls/hr IVPB Q12HR [facility] Rx#:[id number] Oral 330 Output: Urine 300 Other: Voiding Method Toilet Bedside Commode # Voids 0 - Labs CBC & Chem 7: 07/17/16 05:44 07/18/16 06:22 Labs: Abnormal Lab Results - Last 24 Hours (Table) 07/17/16 07/17/16 07/17/16 Range/Units 12:00 16:59 20:44 Potassium (3.5-5.1) mmol/L BUN (7-17) mg/dL Creatinine (0.52-1.04) mg/dL Glucose (74-99) mg/dL POC Glucose (mg/dL) 185 H 223 H 232 H (75-99) mg/dL 07/18/16 07/18/16 Range/Units 06:13 06:22 Potassium 5.4 H (3.5-5.1) mmol/L BUN 131 H* (7-17) mg/dL Creatinine 2.62 H (0.52-1.04) mg/dL Glucose 106 H (74-99) mg/dL POC Glucose (mg/dL) 103 H (75-99) mg/dL Microbiology - Last 24 Hours (Table) 07/14/16 13:52 Blood Culture - Preliminary Blood No Growth after 72 hours Assessment and Plan Plan: Assessment: #1. Nonoliguric acute kidney injury secondary to ischemic ATN secondary to diuresis. Creatinine up at 2.6 today. #2. Systolic CHF with ejection fraction of 40-45%. Compensated. #3. Chronic kidney disease stage IV secondary to diabetic kidney disease with baseline creatinine near 2. #4. Asthma exacerbation. #5. Disproportionately elevated BUN secondary to acute kidney injury as well as IV steroids. No evidence of GI bleed with hemoglobin at 12.9 as of yesterday. #6. Insulin-dependent diabetes mellitus. Plan: Continue to hold off on diuretics for now. Encourage oral intake. Her appetite is good. Avoid nephrotoxic agents and hypotensive episodes. Repeat electrolytes in the morning.
[2016-07-18] MEDS: SODIUM CHLORIDE 0.9% 1,000 ML IV SCH (11:46)
[2016-07-18 12:03] LABS: Glucose,Whole Blood 192 mg/dL (75-99)
--- NOTE | 2016-07-18 12:05 | PN ---
Mrs. Juan is an 81-year-old female with known history of bronchial asthma, history of atrial fibrillation, status post permanent pacemaker implantation, history of renal failure who presents with worsening dyspnea with a combination of lung infection on top of congestive heart failure. She is feeling better this morning. Her breathing is stable. She has been off the diuresis for 24 hours. She denies any chest pain. Her cough is better. No dizziness. No palpitation. No nausea. She continues to be at this time on Lipitor 40 mg daily, insulin, metoprolol tartrate 25 mg twice a day and Verapamil SR 180 mg daily. PHYSICAL EXAMINATION: Blood pressure 119/60 with a heart rate in 90s. LUNGS: No wheezes or rales. HEART: Irregularly irregular. S1, S2, no S3, with systolic murmur. No diastolic murmur. ABDOMEN: Soft, obese, nontender. EXTREMITIES: Chronic skin changes no significant edema. Lab data revealed BUN and creatinine is 31 and 2.62. Potassium 5.4. Her calcium is 8.8. IMPRESSION: 1. Symptoms of progressive dyspnea with a combination of pneumonia and congestive heart failure on the basis of diastolic dysfunction. 2. Chronic atrial fibrillation, not anticoagulated because of significant gastrointestinal bleeding. 3. Worsening chronic kidney disease with a combination of diuresis and steroids. 4. Status post permanent pacemaker implantation. 5. History of hypertension. 6. Mildly to moderately impaired left ventricular systolic function. RECOMMENDATIONS: From the cardiac standpoint, we will continue to stay off the diuretics. The patient was hydrated yesterday. We will follow her renal function tomorrow. I discussed her case with Dr. Bean. Depending on her renal function response by tomorrow, further recommendations will be made.
--- NOTE | 2016-07-18 13:28 | P.PN ---
Subjective Principal diagnosis: Acute congestive heart failure secondary to diastolic dysfunction and atrial fibrillation with RVR. 81-year-old female patient, obese with known history of chronic atrial fibrillation, CHF with diastolic dysfunction, sick sinus syndrome with previous pacemaker insertion along with hypertension and hyperlipidemia and peripheral vascular disease who comes into the hospital because of worsening shortness of breath. She has had hospitalizations over the past few years , the most recent of which was in April 2016 when the patient was in the hospital for GI bleeding. During this current admission, the patient came in for increased shortness of breath. She was a 2 fibrillation with rapid ventricular response. She was transferred from [place] on a BiPAP and subsequently she was admitted to the intensive care unit for further evaluation and management. Currently the patient on a BiPAP at a pressure of 10 over 5 and FiO2 of 40%. She is also on a Cardizem drip at the rate of 10 mg an hour. Chest x-ray showed cardiomegaly with small right more than left sided pleural effusion and right basilar infiltrate and there is a new left midlung infiltration also noted. The patient was suspected to have acute CHF and the patient was started on IV Lasix 40 mg every 12 hours and she is producing adequate amount of urine output. Nevertheless, the possibility of a pneumonia cannot be completely excluded. She has no fever. No chills. No significant sputum production. No DVT or pulmonary embolism. No aspiration. She is a lifetime nonsmoker. She has been reported to have chronic persistent bronchial asthma maintained on Pulmicort Respules twice a day and Xopenex tablets treatments 4 times a day [id number] and daily prednisone alternating between 2.5 and 5 mg daily basis. Yesterday, the patient was seen in our office and her prednisone dose was increased up to 30 mg by mouth daily. Despite this change, no major improvement and the patient and up coming to the hospital for further evaluation and treatment. There is a minimal troponin leak with a first set being at 0.05, EKG showing atrial fibrillation with rapid ventricular response without any evidence of ST segment elevations. On 07/15/2016 the patient is being seen in follow-up. Overnight, the patient was treated with a combination of diuretics and antibiotics. Heart failure was suspected although possibility of bilateral pneumonia is also being considered nontender the patient has patchy pulmonary infiltrates in the left upper lobe and the right lower lobe. The patient is still on Lasix and she is receiving 40 mg IV every 12 hours. The patient was given Levaquin and added tigecycline based on today's chest x-ray that shows persistent consolidation/infiltration of the right lung base. Meanwhile, the patient's respiratory status is improved and the patient was taken off the BiPAP and currently is on 6 L of oxygen nasal cannula. Her pulse ox around 92% pH is less short of breath she is able to speak of. This is. She remains afebrile and there is no significant leukocytosis. Renal function is stable with a creatinine of 1.7. In terms of her atrial fibrillation, the patient was taken off the IV Cardizem and the patient was switched to verapamil oral 180 mg by mouth daily. Rate is under better control. IV Solu Medrol will also be tapered. She did develop some steroid-induced hyperglycemia. On 07/16/2016, the patient is being seen in [facility]. The patient Is clinically improved however her chest x-ray still showing bilateral pulmonary infiltrates worse in the right lower lobe. I've treated this patient with a combination of tigecycline and Levaquin. She has bringing up some more sputum today and the sample will be sent for cultures. Blood cultures of been negative. The patient is currently off BiPAP. Earlier this morning she was on 6 L of oxygen by nasal cannula to maintain a saturation above 92%. The patient's also got treated with a combination of bronchodilators and steroids and her Lasix has been drop down to 40 mg every 24 hours knowing that there is has been a small rise in her creatinine. No other complaints otherwise for now. She is fully alert and awake and communicating. On 07/17/2016, the patient is being seen in follow-up. The patient was moved out of the intensive care unit yesterday. Of cover this patient with a combination of tigecycline and Levaquin for potential patchy bilateral pneumonia. On today's chest x-ray the patchy pneumonic infiltrates in the right lung is improving yet the patient still has some underlying CHF findings. The patient is of BiPAP. She is on 6 L of oxygen by nasal cannula and we haven't been able to wean her off the oxygen over the past 24 hours. She gets short of breath with minimal to moderate activity and she is very comfortable at rest. No fever. No chills. No other new complaints otherwise for now. She remains on IV Solu Medrol 40 g every 12 hours in addition to Xopenex nebulized treatments around the clock. The patient has developed prerenal azotemia with a creatinine coming up to 2.4 and she was taken off the Lasix. Patient was reevaluated on 07/18/2016, continues to do relatively well, breathing a lot easier, chest x-ray is showing definite improvement but continues to have mild bilateral pleural effusions, and a small amount of fluid in the fissure on the right side. Comparing to her initial presentation chest x -ray, this is a significant improvement, and again I believe the findings initially were all findings of congestive heart failure not pneumonia. Renal profile was noted, BUN is up to 131 creatinine is 2.62. Objective - Vital Signs Vital signs: Vital Signs Temp 96.8 F L 07/18/16 08:00 Pulse 60 07/18/16 11:56 Resp 18 07/18/16 11:56 BP 127/67 07/18/16 11:56 Pulse Ox 97 07/18/16 11:56 Intake & Output 07/17/16 07/18/16 07/18/16 18:59 06:59 18:59 Intake Total 595 470 180 Output Total 300 Balance 295 470 180 Weight 88.6 kg Intake: IV 265 470 Sodium Chloride 0.9% 1, 15 20 000 ml @ 10 mls/hr IV . Q24H [facility] Rx#:[id number] Sodium Chloride 0.9% 1, 200 400 000 ml @ 50 mls/hr IV . Q20H [facility] Rx#:[id number] Tigecycline 50 mg In 50 50 Sodium Chloride 0.9% 50 ml @ 50 mls/hr IVPB Q12HR [facility] Rx#:[id number] Oral 330 180 Output: Urine 300 Other: Voiding Method Toilet Bedside Commode # Voids 0 1 # Bowel Movements 1 - Exam Physical Exam: Revealed an 81-year-old female in no distress. On nasal cannula. HEENT:[Neck is supple.] [No neck masses.] [No thyromegaly.] [No JVD.] Chest: [Interested breath sounds at the bases, no crackles or rhonchi or wheezes..] Cardiac Exam: [Irregular irregular rhythm, 2/6 systolic murmur throughout the precordium.] Abdomen: [Soft, nontender, no megaly, no rebound, no guarding, normal bowel sounds.] Extremities: [No clubbing, trace of bipedal edema, no cyanosis.] Neurological Exam: [No focal neurologic deficit.] - Labs CBC & Chem 7: 07/17/16 05:44 07/18/16 06:22 Labs: Abnormal Lab Results - Last 24 Hours (Table) 07/17/16 07/17/16 07/18/16 Range/Units 16:59 20:44 06:13 Potassium (3.5-5.1) mmol/L BUN (7-17) mg/dL Creatinine (0.52-1.04) mg/dL Glucose (74-99) mg/dL POC Glucose (mg/dL) 223 H 232 H 103 H (75-99) mg/dL 07/18/16 07/18/16 Range/Units 06:22 11:59 Potassium 5.4 H (3.5-5.1) mmol/L BUN 131 H* (7-17) mg/dL Creatinine 2.62 H (0.52-1.04) mg/dL Glucose 106 H (74-99) mg/dL POC Glucose (mg/dL) 192 H (75-99) mg/dL Microbiology - Last 24 Hours (Table) 07/14/16 13:52 Blood Culture - Preliminary Blood No Growth after 72 hours Assessment and Plan Plan: 1 acute shortness of breath secondary to an acute CHF exacerbation. The patient has increased bilateral pulmonary vascular markings probably due to pulmonary edema in agreement with CHF, On 07/15/2016 the patient is clinically improved. The patient is being treated for both CHF . The patient is on IV Lasix. Antibiotic coverage includes a combination of tigecycline and Levaquin. Which I will discontinue today, and switch her to oral treatment only. On 07/16/2016, the patient is being seen in follow-up. The patient is still being treated for bilateral pneumonia with the same antibiotic coverage which includes a combination of tigecycline and Levaquin. Chest x-ray from today shows persistent infiltration of the lung bases and a pneumonia persists. Meanwhile the patient is still being diuresis and the diuretics have been cut down to Lasix 40 mg IV every 24 hours. Clinically improved. Chest x-ray is lagging behind. No microbial cultures of been established on this patient. Her cardiac rhythm is atrial fibrillation and the patient's rhythm is under better control for now. She is on no anticoagulants. On 07/17/2016, the patient is essentially the same. I will see the chest x-ray shows improvement in the right lower lobe pulmonary infiltration as the patient is being covered with broad-spectrum antibiotics. Diuretics need to be placed on hold as long as the patient has developed a acute on top of a chronic renal failure picture, the acute component being related to prerenal azotemia secondary to diuresis. On 07/18, patient is feeling better, hence will cut down on the IV antibiotics, continue diuretics but may consider cutting down the dose. Consider discharge planning in the next couple of days. 2 acute hypoxic respiratory failure, currently off BiPAP and the patient is on high flow oxygen 6 L/m nasal cannula 3 acute asthma exacerbation 4 morbid obesity 5 chronic renal failure, with an acute rise in the creatinine secondary to diuresis 6 atrial fibrillation fibrillation with rapid ventricular response , recovered and the patient was switched to oral verapamil, rate controlled 7 mild troponin leak without evidence of any significant EKG changes, patient is free of any angina 8 permanent pacemaker insertion for sick sinus syndrome 9 diabetes mellitus 10 severe persistent bronchial asthma at baseline 11 GI bleed attributed to antral ulceration and the patient has been off anticoagulation for now 12 peripheral vascular disease 13 osteoarthritis 14 hypertension Recommendation: Consider discharge planning in the next 24-48 hours. Time with Patient: Less than 30
[2016-07-18] MEDS: IPRATROPIUM-ALBUTEROL 3 ML NEB INHALATION SCH ×3 (13:53→19:28)
[2016-07-18] MEDS ORDERED: SODIUM CHLORIDE 0.9% 1,000 ML IV SCH (16:45)
[2016-07-18 16:58] LABS: Glucose,Whole Blood 139 mg/dL (75-99)
[2016-07-18] MEDS: LEVOFLOXACIN 250 MG TAB PO SCH (20:14)
[2016-07-18] MEDS: INSULIN GLARGINE 100 UNIT/ML 10 ML VIAL SQ SCH (20:14)
[2016-07-18] MEDS: MONTELUKAST 10 MG TAB PO SCH (20:15)
[2016-07-18 20:59] LABS: Glucose,Whole Blood 150 mg/dL (75-99)
--- NOTE | 2016-07-18 21:28 | PN ---
DATE OF SERVICE: 07/18/2016 PRESENTING COMPLAINT: Short of breath. INTERVAL HISTORY: This is a patient who presented with acute asthma exacerbation, some CHF; also atrial fibrillation with rapid ventricular rate on presentation, now ventricular paced, controlled. She was also treated for pneumonia. Patient's cough has improved. Patient did actually walk a bit and did tolerate some diet. Breathing is better. Daughter is at the bedside. Review of systems done for constitutional, cardiovascular, GI, pulmonary; relevant findings as above. Current medications are reviewed that include IV Solu-Medrol, p.o. Levaquin. On examination, temperature 96.8, pulse 54, respiration 18, blood pressure 109/67, pulse ox 92% on 4 L. GENERAL APPEARANCE: Sitting up, more awake. EYES: Pupils equal. Conjunctivae normal. NECK: JVD unable to assess. RESPIRATORY: Effort increased. LUNGS: Improved air entry. CARDIOVASCULAR: Heart sounds irregular. No edema. ABDOMEN: Soft, nontender. Liver and spleen not palpable. PSYCHIATRY: Alert and oriented x3. Mood and affect normal. INVESTIGATIONS: Potassium 5.4. BUN 131, creatinine 2.62. ASSESSMENT: 1. Acute exacerbation of moderate persistent asthma, slow to respond. 2. Acute congestive heart failure exacerbation from systolic dysfunction, ejection fraction 40% to 45%, now compensated. 3. Persistent atrial fibrillation with rapid ventricular response on presentation, now controlled. 4. Essential hypertension. 5. Acute renal failure, probably prerenal. 6. 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 7. Peripheral arterial disease. 8. Primary osteoarthritis in multiple joints bilaterally. 9. Sick sinus syndrome with pacemaker in place. 10. Troponin leak, probably from hemodynamic instability. 11. Acute hypoxic respiratory failure, multifactorial. 12. Bilateral pneumonia. Patient had been on antibiotics. Suspect Gram-negative organism. PLAN: Overall patient is doing better. Will gently hydrate the patient overnight, being cautious with LV function, but given the severe degree of prerenal, it should be fine. I did talk to her daughter. Will follow.
[2016-07-19] MEDS: INSULIN LISPRO (humaLOG) 300 UNIT/3 ML VIAL SQ SCH ×5 (03:58→22:00)
[2016-07-19 06:22] LABS: Glucose,Whole Blood 122 mg/dL (75-99)
[2016-07-19 06:53] LABS: Calcium 8.1 mg/dL (8.4-10.2); Potassium 5.6 mmol/L (3.5-5.1)
[2016-07-19] MEDS: IPRATROPIUM-ALBUTEROL 3 ML NEB INHALATION SCH ×4 (08:10→19:55)
[2016-07-19] MEDS: methylPREDNISolone SOD SUCCI 40 MG/ML 1 ML VIAL IV SCH (08:14)
[2016-07-19] MEDS: ALLOPURINOL 100 MG TAB PO SCH (08:14)
[2016-07-19] MEDS: ATORVASTATIN 40 MG TAB PO SCH (08:14)
[2016-07-19] MEDS: METOPROLOL TARTRATE 25 MG TAB PO SCH ×2 (08:14→20:36)
[2016-07-19] MEDS: PREGABALIN 75 MG CAP PO SCH ×2 (08:14→20:36)
[2016-07-19] MEDS: PANTOPRAZOLE 40 MG TABLET PO SCH (08:14)
[2016-07-19] MEDS ORDERED: SODIUM BICARB 8.4% 50 ML SYR (1 MEQ/ML) IV STA (09:52)
--- NOTE | 2016-07-19 10:08 | P.PN ---
Subjective Patient is seen in follow-up for acute kidney injury on chronic kidney disease. 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 Renal function continues to worsen with creatinine at 2.8 today. Patient's currently being treated for asthma exacerbation. She was initially receiving diuretics which were discontinued 3 days ago. She is currently receiving gentle IV hydration with normal saline running at 50 mL an hour which was started last night. Her appetite is good. She denies any vomiting or diarrhea. Dyspnea is improving. Admits to good urine output. Vital signs are stable. General: The patient appeared well nourished and normally developed. HEENT: Head exam is unremarkable. Neck is without jugular venous distension. LUNGS: Lungs are clear to auscultation and percussion. Breath sounds decreased. HEART: Rate and Rhythm are regular. First and second heart sounds normal. No murmurs, rubs or gallops. ABDOMEN: Abdominal exam reveals normal bowel sounds. Non-tender and non- distended. No evidence of peritonitis. EXTREMITITES: No clubbing, cyanosis, or edema. Objective - Vital Signs Vital signs: Vital Signs Temp 97.7 F 07/19/16 08:20 Pulse 84 07/19/16 08:24 Resp 18 07/19/16 08:20 BP 135/93 07/19/16 08:20 Pulse Ox 95 07/19/16 08:20 Intake & Output 07/18/16 07/19/16 07/19/16 18:59 06:59 18:59 Intake Total 780 700 180 Output Total 1600 650 Balance -820 50 180 Weight 88.6 kg 91.4 kg Intake: IV 600 Sodium Chloride 0.9% 1, 600 000 ml @ 50 mls/hr IV . Q20H [facility] Rx#:[id number] Oral 780 100 180 Output: Urine 1600 650 Other: Voiding Method Toilet Toilet Bedside Commode Bedside Commode # Voids 1 1 # Bowel Movements 1 - Labs CBC & Chem 7: 07/17/16 05:44 07/19/16 05:48 Labs: Abnormal Lab Results - Last 24 Hours (Table) 07/18/16 07/18/16 07/18/16 Range/Units 11:59 16:54 20:54 Sodium (137-145) mmol/L Potassium (3.5-5.1) mmol/L Carbon Dioxide (22-30) mmol/L BUN (7-17) mg/dL Creatinine (0.52-1.04) mg/dL Glucose (74-99) mg/dL POC Glucose (mg/dL) 192 H 139 H 150 H (75-99) mg/dL Calcium (8.4-10.2) mg/dL 07/19/16 07/19/16 Range/Units 05:48 06:16 Sodium 135 L (137-145) mmol/L Potassium 5.6 H (3.5-5.1) mmol/L Carbon Dioxide 15 L (22-30) mmol/L BUN 150 H* (7-17) mg/dL Creatinine 2.80 H (0.52-1.04) mg/dL Glucose 132 H (74-99) mg/dL POC Glucose (mg/dL) 122 H (75-99) mg/dL Calcium 8.1 L (8.4-10.2) mg/dL Microbiology - Last 24 Hours (Table) 07/14/16 13:52 Blood Culture - Preliminary Blood No Growth after 96 hours Assessment and Plan Plan: Assessment: #1. Nonoliguric acute kidney injury secondary to ischemic ATN secondary to diuresis. Creatinine up at 2.8 today. #2. Systolic CHF with ejection fraction of 40-45%. Compensated. #3. Chronic kidney disease stage IV secondary to diabetic kidney disease with baseline creatinine near 2. #4. Asthma exacerbation. #5. Disproportionately elevated BUN secondary to acute kidney injury as well as IV steroids. No evidence of GI bleed with hemoglobin at 12.9 as of 07/17. #6. Insulin-dependent diabetes mellitus. #7. Metabolic acidosis secondary to acute kidney injury. #8. Mild hyperkalemia secondary to metabolic acidosis and acute kidney injury. Plan: Continue to hold off on diuretics for now. Continue normal saline at 50 mL an hour for now - Hep-Lock at 6 PM today. Encourage oral intake. Her appetite is good. Avoid nephrotoxic agents and hypotensive episodes. Repeat electrolytes in the morning. Start oral sodium bicarbonate 650 mg twice daily. Check postvoid residual.
[2016-07-19] MEDS: SODIUM BICARBONATE TAB 650 MG TAB PO SCH ×2 (11:15→20:36)
[2016-07-19 11:28] LABS: Glucose,Whole Blood 160 mg/dL (75-99)
[2016-07-19] MEDS: DOCUSATE 100 MG CAP PO PRN (12:12)
--- NOTE | 2016-07-19 14:18 | P.PN ---
Subjective Principal diagnosis: Acute congestive heart failure secondary to diastolic dysfunction and atrial fibrillation with RVR. 81-year-old female patient, obese with known history of chronic atrial fibrillation, CHF with diastolic dysfunction, sick sinus syndrome with previous pacemaker insertion along with hypertension and hyperlipidemia and peripheral vascular disease who comes into the hospital because of worsening shortness of breath. She has had hospitalizations over the past few years , the most recent of which was in April 2016 when the patient was in the hospital for GI bleeding. During this current admission, the patient came in for increased shortness of breath. She was a 2 fibrillation with rapid ventricular response. She was transferred from [place] on a BiPAP and subsequently she was admitted to the intensive care unit for further evaluation and management. Currently the patient on a BiPAP at a pressure of 10 over 5 and FiO2 of 40%. She is also on a Cardizem drip at the rate of 10 mg an hour. Chest x-ray showed cardiomegaly with small right more than left sided pleural effusion and right basilar infiltrate and there is a new left midlung infiltration also noted. The patient was suspected to have acute CHF and the patient was started on IV Lasix 40 mg every 12 hours and she is producing adequate amount of urine output. Nevertheless, the possibility of a pneumonia cannot be completely excluded. She has no fever. No chills. No significant sputum production. No DVT or pulmonary embolism. No aspiration. She is a lifetime nonsmoker. She has been reported to have chronic persistent bronchial asthma maintained on Pulmicort Respules twice a day and Xopenex tablets treatments 4 times a day [id number] and daily prednisone alternating between 2.5 and 5 mg daily basis. Yesterday, the patient was seen in our office and her prednisone dose was increased up to 30 mg by mouth daily. Despite this change, no major improvement and the patient and up coming to the hospital for further evaluation and treatment. There is a minimal troponin leak with a first set being at 0.05, EKG showing atrial fibrillation with rapid ventricular response without any evidence of ST segment elevations. On 07/15/2016 the patient is being seen in follow-up. Overnight, the patient was treated with a combination of diuretics and antibiotics. Heart failure was suspected although possibility of bilateral pneumonia is also being considered nontender the patient has patchy pulmonary infiltrates in the left upper lobe and the right lower lobe. The patient is still on Lasix and she is receiving 40 mg IV every 12 hours. The patient was given Levaquin and added tigecycline based on today's chest x-ray that shows persistent consolidation/infiltration of the right lung base. Meanwhile, the patient's respiratory status is improved and the patient was taken off the BiPAP and currently is on 6 L of oxygen nasal cannula. Her pulse ox around 92% pH is less short of breath she is able to speak of. This is. She remains afebrile and there is no significant leukocytosis. Renal function is stable with a creatinine of 1.7. In terms of her atrial fibrillation, the patient was taken off the IV Cardizem and the patient was switched to verapamil oral 180 mg by mouth daily. Rate is under better control. IV Solu Medrol will also be tapered. She did develop some steroid-induced hyperglycemia. On 07/16/2016, the patient is being seen in FU. The patient Is clinically improved however her chest x-ray still showing bilateral pulmonary infiltrates worse in the right lower lobe. I've treated this patient with a combination of tigecycline and Levaquin. She has bringing up some more sputum today and the sample will be sent for cultures. Blood cultures of been negative. The patient is currently off BiPAP. Earlier this morning she was on 6 L of oxygen by nasal cannula to maintain a saturation above 92%. The patient's also got treated with a combination of bronchodilators and steroids and her Lasix has been drop down to 40 mg every 24 hours knowing that there is has been a small rise in her creatinine. No other complaints otherwise for now. She is fully alert and awake and communicating. On 07/17/2016, the patient is being seen in follow-up. The patient was moved out of the intensive care unit yesterday. Of cover this patient with a combination of tigecycline and Levaquin for potential patchy bilateral pneumonia. On today's chest x-ray the patchy pneumonic infiltrates in the right lung is improving yet the patient still has some underlying CHF findings. The patient is of BiPAP. She is on 6 L of oxygen by nasal cannula and we haven't been able to wean her off the oxygen over the past 24 hours. She gets short of breath with minimal to moderate activity and she is very comfortable at rest. No fever. No chills. No other new complaints otherwise for now. She remains on IV Solu Medrol 40 g every 12 hours in addition to Xopenex nebulized treatments around the clock. The patient has developed prerenal azotemia with a creatinine coming up to 2.4 and she was taken off the Lasix. Patient was reevaluated on 07/18/2016, continues to do relatively well, breathing a lot easier, chest x-ray is showing definite improvement but continues to have mild bilateral pleural effusions, and a small amount of fluid in the fissure on the right side. Comparing to her initial presentation chest x -ray, this is a significant improvement, and again I believe the findings initially were all findings of congestive heart failure not pneumonia. Renal profile was noted, BUN is up to 131 creatinine is 2.62. Reevaluated today on 07/19/2016, patient continues to do better, breathing easier , less cough and less wheezing less shortness of breath. BUN is up to 150 creatinine is 2.80 and bicarb is 15. Her renal status is being closely monitored by the senior mobile web developer on the case, and he recommended holding diuretics. Slow hydration, encourage oral intake, and avoid nephrotoxic agents. He also added sodium bicarb twice a day. Pulmonary-julio patient continues to do relatively well. At her last chest x-ray showed improvement in the congestive heart failure. Again I strongly doubt any underlying pneumonia. Objective - Vital Signs Vital signs: Vital Signs Temp 97.7 F 07/19/16 11:38 Pulse 84 07/19/16 12:03 Resp 18 07/19/16 11:38 BP 128/71 07/19/16 11:38 Pulse Ox 96 07/19/16 11:38 Intake & Output 07/18/16 07/19/16 07/19/16 18:59 06:59 18:59 Intake Total 780 700 280 Output Total 1600 650 Balance -820 50 280 Weight 88.6 kg 91.4 kg Intake: IV 600 Sodium Chloride 0.9% 1, 600 000 ml @ 50 mls/hr IV . Q20H [facility] Rx#:[id number] Oral 780 100 280 Output: Urine 1600 650 Other: Voiding Method Toilet Toilet Bedside Commode Bedside Commode # Voids 1 1 # Bowel Movements 1 - Exam Physical Exam: Revealed an 81-year-old female in no distress. On nasal cannula. HEENT:[Neck is supple.] [No neck masses.] [No thyromegaly.] [No JVD.] Chest: [Interested breath sounds at the bases, no crackles or rhonchi or wheezes..] Cardiac Exam: [Irregular irregular rhythm, 2/6 systolic murmur throughout the precordium.] Abdomen: [Soft, nontender, no megaly, no rebound, no guarding, normal bowel sounds.] Extremities: [No clubbing, trace of bipedal edema, no cyanosis.] Neurological Exam: [No focal neurologic deficit.] - Labs CBC & Chem 7: 07/17/16 05:44 07/19/16 05:48 Labs: Abnormal Lab Results - Last 24 Hours (Table) 07/18/16 07/18/16 07/19/16 Range/Units 16:54 20:54 05:48 Sodium 135 L (137-145) mmol/L Potassium 5.6 H (3.5-5.1) mmol/L Carbon Dioxide 15 L (22-30) mmol/L BUN 150 H* (7-17) mg/dL Creatinine 2.80 H (0.52-1.04) mg/dL Glucose 132 H (74-99) mg/dL POC Glucose (mg/dL) 139 H 150 H (75-99) mg/dL Calcium 8.1 L (8.4-10.2) mg/dL 07/19/16 07/19/16 Range/Units 06:16 11:26 Sodium (137-145) mmol/L Potassium (3.5-5.1) mmol/L Carbon Dioxide (22-30) mmol/L BUN (7-17) mg/dL Creatinine (0.52-1.04) mg/dL Glucose (74-99) mg/dL POC Glucose (mg/dL) 122 H 160 H (75-99) mg/dL Calcium (8.4-10.2) mg/dL Microbiology - Last 24 Hours (Table) 07/14/16 13:52 Blood Culture - Preliminary Blood No Growth after 96 hours Assessment and Plan Plan: 1 acute shortness of breath secondary to an acute CHF exacerbation. Most likely diastolic in nature. On 07/15/2016 the patient is clinically improved. The patient is being treated for both CHF . The patient is on IV Lasix. Antibiotic coverage includes a combination of tigecycline and Levaquin. Which I will discontinue today, and switch her to oral treatment only. On 07/16/2016, the patient is being seen in follow-up. The patient is still being treated for bilateral pneumonia with the same antibiotic coverage which includes a combination of tigecycline and Levaquin. Chest x-ray from today shows persistent infiltration of the lung bases and a pneumonia persists. Meanwhile the patient is still being diuresis and the diuretics have been cut down to Lasix 40 mg IV every 24 hours. Clinically improved. Chest x-ray is lagging behind. No microbial cultures of been established on this patient. Her cardiac rhythm is atrial fibrillation and the patient's rhythm is under better control for now. She is on no anticoagulants. On 07/17/2016, the patient is essentially the same. I will see the chest x-ray shows improvement in the right lower lobe pulmonary infiltration as the patient is being covered with broad-spectrum antibiotics. Diuretics need to be placed on hold as long as the patient has developed a acute on top of a chronic renal failure picture, the acute component being related to prerenal azotemia secondary to diuresis. On 07/18, patient is feeling better, hence will cut down on the IV antibiotics, continue diuretics but may consider cutting down the dose. Consider discharge planning in the next couple of days. On 07/19/2016, patient continues to do well, however her renal profile is concerning, and that being addressed by nephrology on the case. 2 acute hypoxic respiratory failure, currently off BiPAP and the patient is on high flow oxygen 6 L/m nasal cannula 3 acute asthma exacerbation 4 morbid obesity 5 chronic renal failure, with an acute rise in the creatinine secondary to diuresis 6 atrial fibrillation fibrillation with rapid ventricular response , recovered and the patient was switched to oral verapamil, rate controlled 7 mild troponin leak without evidence of any significant EKG changes, patient is free of any angina 8 permanent pacemaker insertion for sick sinus syndrome 9 diabetes mellitus 10 severe persistent bronchial asthma at baseline 11 GI bleed attributed to antral ulceration and the patient has been off anticoagulation for now 12 peripheral vascular disease 13 osteoarthritis 14 hypertension Recommendation: Continue present treatment plan, renal issues seem to be a major concern at this point, being addressed by nephrology, recommending holding diuretics, avoiding nephrotoxic agents, and sodium bicarb was added to her treatment. We'll continue to follow Time with Patient: Less than 30
[2016-07-19 14:39] LABS: Appearance,Urine Clear (Clear); Bilirubin,Urine Negative (Negative); Glucose,Urine (UA) Negative (Negative); Ketones,Urine Negative (Negative); Leukocyte Esterase,Urine Negative (Negative); Mucus,Urine Rare /hpf; Nitrite,Urine Negative (Negative); Particle Count 1781; Protein,Urine 1+ (Negative); RBC,Urine 1 /hpf (0-5); Specific Gravity,Urine 1.012 (1.001-1.035); Squamous Epithelial Cell,Urine 1 /hpf (0-4); UA Billing (MACRO vs. MICRO) MICRO; Urobilinogen,Urine <2.0 mg/dL (<2.0); WBC,Urine 1 /hpf (0-5)
--- NOTE | 2016-07-19 15:28 | P.PN ---
Subjective Principal diagnosis: Shortness of breath This is an 81-year-old female with known history of bronchial asthma, atrial fibrillation status post permanent pacemaker implantation, history of renal failure who presents to the hospital with symptoms of worsening dyspnea with accommodation of lung infection and congestive cardiac failure. Patient was seen and examined this afternoon, continues to have mild wheezing but overall breathing is improving. She denies any chest discomfort, no palpitations. Blood pressure 128/70 with a heart rate in the 80s. Calcium 5.6, BUN 150, creatinine 2.8. Objective - Vital Signs Vital signs: Vital Signs Temp 97.7 F 07/19/16 11:38 Pulse 84 07/19/16 12:03 Resp 18 07/19/16 11:38 BP 128/71 07/19/16 11:38 Pulse Ox 96 07/19/16 11:38 Intake & Output 07/18/16 07/19/16 07/19/16 18:59 06:59 18:59 Intake Total 780 700 280 Output Total 1600 650 Balance -820 50 280 Weight 88.6 kg 91.4 kg Intake: IV 600 Sodium Chloride 0.9% 1, 600 000 ml @ 50 mls/hr IV . Q20H [facility] Rx#:[id number] Oral 780 100 280 Output: Urine 1600 650 Other: Voiding Method Toilet Toilet Bedside Commode Bedside Commode # Voids 1 1 # Bowel Movements 1 - Exam PHYSICAL EXAMINATION: HEENT: Head is atraumatic, normocephalic. Pupils equal, round. Neck is supple. There is no elevated jugular venous pressure. HEART EXAMINATION: S1 and S2 systolic murmur is heard CHEST EXAMINATION: Lungs reveal mild scattered wheezing ABDOMEN: Soft, nontender. Bowel sounds are heard. No organomegaly noted. EXTREMITIES: 2+ peripheral pulses with no evidence of peripheral edema and no calf tenderness noted. NEUROLOGIC patient is awake, alert and oriented -3. . - Labs CBC & Chem 7: 07/17/16 05:44 07/19/16 05:48 Labs: Abnormal Lab Results - Last 24 Hours (Table) 07/18/16 07/18/16 07/19/16 Range/Units 16:54 20:54 05:48 Sodium 135 L (137-145) mmol/L Potassium 5.6 H (3.5-5.1) mmol/L Carbon Dioxide 15 L (22-30) mmol/L BUN 150 H* (7-17) mg/dL Creatinine 2.80 H (0.52-1.04) mg/dL Glucose 132 H (74-99) mg/dL POC Glucose (mg/dL) 139 H 150 H (75-99) mg/dL Calcium 8.1 L (8.4-10.2) mg/dL Urine Protein (Negative) Urine Mucus (None) /hpf 07/19/16 07/19/16 07/19/16 Range/Units 06:16 11:26 14:15 Sodium (137-145) mmol/L Potassium (3.5-5.1) mmol/L Carbon Dioxide (22-30) mmol/L BUN (7-17) mg/dL Creatinine (0.52-1.04) mg/dL Glucose (74-99) mg/dL POC Glucose (mg/dL) 122 H 160 H (75-99) mg/dL Calcium (8.4-10.2) mg/dL Urine Protein 1+ H (Negative) Urine Mucus Rare H (None) /hpf Microbiology - Last 24 Hours (Table) 07/14/16 13:52 Blood Culture - Preliminary Blood No Growth after 96 hours Assessment and Plan (1) Chronic a-fib Status: Acute (2) Pacemaker Status: Acute (3) Acute exacerbation of chronic obstructive airways disease Status: Acute (4) Acute on chronic renal failure Status: Acute (5) Acute respiratory failure Status: Acute (6) COPD exacerbation Status: Acute (7) Systolic congestive heart failure Status: Acute Plan: From cardiology's perspective, we'll continue to hold off on any diuretics for now. She is receiving normal saline at 50 mL per hour until 6 PM this evening per nephrology. Check lytes BUN and creatinine in the morning. DNP note has been reviewed, I agree with a documented findings and plan of care. Patient was seen and examined.
[2016-07-19 17:06] LABS: Glucose,Whole Blood 163 mg/dL (75-99)
[2016-07-19] MEDS: SODIUM CHLORIDE 0.9% 1,000 ML IV SCH (20:36)
[2016-07-19] MEDS: VERAPAMIL SR 180 MG TABLET.ER PO SCH (20:36)
[2016-07-19] MEDS: MONTELUKAST 10 MG TAB PO SCH (20:36)
[2016-07-19 20:50] LABS: Glucose,Whole Blood 155 mg/dL (75-99)
--- NOTE | 2016-07-19 21:03 | PN ---
DATE OF SERVICE: 07/19/2016 PRESENTING COMPLAINT: Tired. INTERVAL HISTORY: This patient presented with acute asthma exacerbation, some element of CHF and also atrial fib fibrillation with rapid ventricular rate now better controlled. Patient also went into acute renal failure. I ( ) the patient with some gentle IV fluids. Patient actually did walk a bit, eating better. Review of systems done for constitutional, cardiovascular, GI, pulmonary; relevant findings as above. Current medications are reviewed that include sodium bicarb, getting IV fluids earlier, Solu-Medrol 40 q.12. On examination, temperature 97.7, pulse 52, respirations 16, blood pressure 162/75, pulse of 95% on room air. GENERAL APPEARANCE: Lying in bed, tired appearing. EYES: Pupils equal. Conjunctivae normal. NECK: JVD not raised. RESPIRATORY: Effort normal. LUNGS: Improved air entry. CARDIOVASCULAR: Heart sounds irregular. No edema. ABDOMEN: Soft, nontender, liver and spleen not palpable. PSYCHIATRY: Alert and oriented times three. Mood and affect normal. INVESTIGATIONS: Potassium 5.6, white count 15, BUN 150, creatinine 2.80. 1. ASSESSMENT: Acute exacerbation of moderate ( ) asthma improving. 2. Acute congestive heart failure from systolic dysfunction; ejection fraction 40% to 45%, now compensated. 3. Persistent atrial fibrillation with rapid ventricular response now doing better. 4. Essential hypertension. 5. Acute renal failure, prerenal from diuretics. 6. 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 7. Peripheral artery disease. 8. Primary osteomyelitis, multiple joints bilaterally. 9. Sick sinus syndrome with pacemaker in place. 10. Troponin leak, probably from hemodynamic instability. 11. Acute hypoxic respiratory failure, multifactorial. 12. Bilateral pneumonia. Patient has been antibiotics. Suspect gram-negative. PLAN: Continue to hydrate the patient slowly at 50 mL/h. This continues to be a significant prerenal component. Otherwise the patient is looking better. Follow.
[2016-07-19] MEDS: INSULIN GLARGINE 100 UNIT/ML 10 ML VIAL SQ SCH (22:00)
[2016-07-20] MEDS: INSULIN LISPRO (humaLOG) 300 UNIT/3 ML VIAL SQ SCH ×5 (02:35→23:11)
[2016-07-20 05:53] LABS: Glucose,Whole Blood 183 mg/dL (75-99)
[2016-07-20 06:21] LABS: Calcium 8.3 mg/dL (8.4-10.2); Potassium 6.1 mmol/L (3.5-5.1)
[2016-07-20] MEDS: predniSONE 20 MG TAB PO SCH (08:39)
[2016-07-20] MEDS: SODIUM BICARBONATE TAB 650 MG TAB PO SCH ×2 (08:39→23:14)
[2016-07-20] MEDS: ATORVASTATIN 40 MG TAB PO SCH (08:39)
[2016-07-20] MEDS: ALLOPURINOL 100 MG TAB PO SCH (08:39)
[2016-07-20] MEDS: PANTOPRAZOLE 40 MG TABLET PO SCH (08:39)
[2016-07-20] MEDS: PREGABALIN 75 MG CAP PO SCH ×2 (08:39→23:13)
[2016-07-20] MEDS: METOPROLOL TARTRATE 25 MG TAB PO SCH ×2 (08:39→23:13)
[2016-07-20] MEDS ORDERED: SODIUM POLYSTYRENE SULFONATE 15 GM/60 ML BOTTLE PO STA (08:52)
[2016-07-20] MEDS: IPRATROPIUM-ALBUTEROL 3 ML NEB INHALATION SCH ×2 (09:39→12:47)
--- NOTE | 2016-07-20 10:16 | PN ---
Patient is seen for followup for acute kidney injury on top of chronic kidney disease. She was admitted with shortness of breath and pneumonia. She had been mildly volume overloaded and was diuresed. Serum creatinine has gone up from yesterday. Her BUN is also significantly elevated. Patient is maintained on steroids. She states she is not feeling well. Urine output has been fair according to the patient, 24-hour urine output documented at 2.2 L from yesterday. On examination today, blood pressure is 165/81, heart rate 53 per minute. She is afebrile. Examination of the heart, S1 and S2. Examination of the lungs, bilateral breath sounds are heard. Decreased breath sounds in bases. Abdomen is soft, nontender. Examination of lower extremities shows trace edema bilaterally. ACCOUNT MANAGER SALES REPRESENTATIVE exam is grossly intact. Labs show sodium 135, potassium 6.1, BUN 159, serum creatinine 2.94. UA is unremarkable. ASSESSMENT: 1. Acute kidney injury, most likely acute tubular necrosis, currently nonoliguric. No evidence of urine eosinophils. Patient has been talked to regarding possible dialysis if renal function continues to worsen. I will resume gentle IV hydration. We will also obtain a chest x-ray from today. Her BUN is disproportionately elevated secondary to steroids as well. 2. Hyperkalemia associated with acute kidney injury, will give a dose of Kayexalate and expect improvement, if her renal function improves with increased urine output. Patient should be on a potassium-restricted diet as well. 3. Chronic kidney disease stage IV with baseline creatinine of about 1.7 to 2 mg/dL secondary to diabetic kidney disease. 4. Type 2 diabetes. 5. Cardiomyopathy with ejection fraction 40% to 45%. 6. History of acute hypoxic respiratory failure on initial admission and patient had been on BiPAP. Currently she is off of it. 7. Atrial fibrillation with rapid ventricular response, now with controlled ventricular response. PLAN: Check chest x-ray, try gentle IV hydration again. Continue to avoid nephrotoxic agents and possible dialysis if renal function continues to worsen.
--- NOTE | 2016-07-20 11:19 | XR ---
EXAMINATION TYPE: XR chest 1V portable DATE OF EXAM: 07/20/2016 11:11 AM HISTORY: Shortness of breath. COMPARISON: 07/17/2016 TECHNIQUE: Single view of the chest is submitted. FINDINGS: There is continued cardiomegaly with small effusions right greater than left. Mild right basilar atel ectasis. No evidence for overt failure at this time. Dual-lead pacer is in place. Hilar and mediastin al structures are unremarkable. IMPRESSION: 1. No evidence for overt failure. Small effusions noted.
[2016-07-20 12:08] LABS: Glucose,Whole Blood 147 mg/dL (75-99)
--- NOTE | 2016-07-20 13:41 | P.PN ---
Subjective Principal diagnosis: Acute congestive heart failure secondary to diastolic dysfunction and atrial fibrillation with RVR. 81-year-old female patient, obese with known history of chronic atrial fibrillation, CHF with diastolic dysfunction, sick sinus syndrome with previous pacemaker insertion along with hypertension and hyperlipidemia and peripheral vascular disease who comes into the hospital because of worsening shortness of breath. She has had hospitalizations over the past few years , the most recent of which was in April 2016 when the patient was in the hospital for GI bleeding. During this current admission, the patient came in for increased shortness of breath. She was a 2 fibrillation with rapid ventricular response. She was transferred from [place] on a BiPAP and subsequently she was admitted to the intensive care unit for further evaluation and management. Currently the patient on a BiPAP at a pressure of 10 over 5 and FiO2 of 40%. She is also on a Cardizem drip at the rate of 10 mg an hour. Chest x-ray showed cardiomegaly with small right more than left sided pleural effusion and right basilar infiltrate and there is a new left midlung infiltration also noted. The patient was suspected to have acute CHF and the patient was started on IV Lasix 40 mg every 12 hours and she is producing adequate amount of urine output. Nevertheless, the possibility of a pneumonia cannot be completely excluded. She has no fever. No chills. No significant sputum production. No DVT or pulmonary embolism. No aspiration. She is a lifetime nonsmoker. She has been reported to have chronic persistent bronchial asthma maintained on Pulmicort Respules twice a day and Xopenex tablets treatments 4 times a day [id number] and daily prednisone alternating between 2.5 and 5 mg daily basis. Yesterday, the patient was seen in our office and her prednisone dose was increased up to 30 mg by mouth daily. Despite this change, no major improvement and the patient and up coming to the hospital for further evaluation and treatment. There is a minimal troponin leak with a first set being at 0.05, EKG showing atrial fibrillation with rapid ventricular response without any evidence of ST segment elevations. On 07/15/2016 the patient is being seen in follow-up. Overnight, the patient was treated with a combination of diuretics and antibiotics. Heart failure was suspected although possibility of bilateral pneumonia is also being considered nontender the patient has patchy pulmonary infiltrates in the left upper lobe and the right lower lobe. The patient is still on Lasix and she is receiving 40 mg IV every 12 hours. The patient was given Levaquin and added tigecycline based on today's chest x-ray that shows persistent consolidation/infiltration of the right lung base. Meanwhile, the patient's respiratory status is improved and the patient was taken off the BiPAP and currently is on 6 L of oxygen nasal cannula. Her pulse ox around 92% pH is less short of breath she is able to speak of. This is. She remains afebrile and there is no significant leukocytosis. Renal function is stable with a creatinine of 1.7. In terms of her atrial fibrillation, the patient was taken off the IV Cardizem and the patient was switched to verapamil oral 180 mg by mouth daily. Rate is under better control. IV Solu Medrol will also be tapered. She did develop some steroid-induced hyperglycemia. On 07/16/2016, the patient is being seen in FU. The patient Is clinically improved however her chest x-ray still showing bilateral pulmonary infiltrates worse in the right lower lobe. I've treated this patient with a combination of tigecycline and Levaquin. She has bringing up some more sputum today and the sample will be sent for cultures. Blood cultures of been negative. The patient is currently off BiPAP. Earlier this morning she was on 6 L of oxygen by nasal cannula to maintain a saturation above 92%. The patient's also got treated with a combination of bronchodilators and steroids and her Lasix has been drop down to 40 mg every 24 hours knowing that there is has been a small rise in her creatinine. No other complaints otherwise for now. She is fully alert and awake and communicating. On 07/17/2016, the patient is being seen in follow-up. The patient was moved out of the intensive care unit yesterday. Of cover this patient with a combination of tigecycline and Levaquin for potential patchy bilateral pneumonia. On today's chest x-ray the patchy pneumonic infiltrates in the right lung is improving yet the patient still has some underlying CHF findings. The patient is of BiPAP. She is on 6 L of oxygen by nasal cannula and we haven't been able to wean her off the oxygen over the past 24 hours. She gets short of breath with minimal to moderate activity and she is very comfortable at rest. No fever. No chills. No other new complaints otherwise for now. She remains on IV Solu Medrol 40 g every 12 hours in addition to Xopenex nebulized treatments around the clock. The patient has developed prerenal azotemia with a creatinine coming up to 2.4 and she was taken off the Lasix. Patient was reevaluated on 07/18/2016, continues to do relatively well, breathing a lot easier, chest x-ray is showing definite improvement but continues to have mild bilateral pleural effusions, and a small amount of fluid in the fissure on the right side. Comparing to her initial presentation chest x -ray, this is a significant improvement, and again I believe the findings initially were all findings of congestive heart failure not pneumonia. Renal profile was noted, BUN is up to 131 creatinine is 2.62. Reevaluated today on 07/19/2016, patient continues to do better, breathing easier , less cough and less wheezing less shortness of breath. BUN is up to 150 creatinine is 2.80 and bicarb is 15. Her renal status is being closely monitored by the administrative services manager on the case, and he recommended holding diuretics. Slow hydration, encourage oral intake, and avoid nephrotoxic agents. He also added sodium bicarb twice a day. Pulmonary-julio patient continues to do relatively well. At her last chest x-ray showed improvement in the congestive heart failure. Again I strongly doubt any underlying pneumonia. Reevaluated today on 07/20/2016, patient is not feeling as good today as she felt yesterday. She has generalized weakness, intermittent cough and wheezing. Feels much worse compared to how she felt in the last few days. Her electrolytes showed hyperkalemia, BUN is up to 159 and creatinine is 2.94, and her chest x-ray is showing significant improvement in her congestive heart failure. Had diuretics have been addressed, and now she is being followed by nephrology regarding her renal failure. Presently she is off all diuretics, and hoping that the patient's renal status will improve, and hoping that she doesn't go back into congestive heart failure again. IV access seems to be a bit of an issue, patient may need a PICC line placement. Objective - Vital Signs Vital signs: Vital Signs Temp 97.5 F L 07/20/16 08:47 Pulse 88 07/20/16 13:08 Resp 16 07/20/16 08:47 BP 165/81 07/20/16 08:47 Pulse Ox 95 07/20/16 08:47 Intake & Output 07/19/16 07/20/16 07/20/16 18:59 06:59 18:59 Intake Total 780 60 Output Total 650 800 Balance 780 -650 -740 Weight 92.4 kg Intake: Oral 780 60 Output: Urine 650 800 Other: Voiding Method Toilet Toilet Toilet Bedside Commode Bedside Commode Bedside Commode # Voids 1 # Bowel Movements 1 - Exam Physical Exam: Revealed an 81-year-old female in no distress. On nasal cannula. HEENT:[Neck is supple.] [No neck masses.] [No thyromegaly.] [No JVD.] Chest: [Interested breath sounds at the bases, no crackles or rhonchi or wheezes..] Cardiac Exam: [Irregular irregular rhythm, 2/6 systolic murmur throughout the precordium.] Abdomen: [Soft, nontender, no megaly, no rebound, no guarding, normal bowel sounds.] Extremities: [No clubbing, trace of bipedal edema, no cyanosis.] Neurological Exam: [No focal neurologic deficit.] - Labs CBC & Chem 7: 07/17/16 05:44 07/20/16 05:42 Labs: Abnormal Lab Results - Last 24 Hours (Table) 07/19/16 07/19/16 07/19/16 Range/Units 14:15 16:58 20:48 Sodium (137-145) mmol/L Potassium (3.5-5.1) mmol/L Carbon Dioxide (22-30) mmol/L BUN (7-17) mg/dL Creatinine (0.52-1.04) mg/dL Glucose (74-99) mg/dL POC Glucose (mg/dL) 163 H 155 H (75-99) mg/dL Calcium (8.4-10.2) mg/dL Urine Protein 1+ H (Negative) Urine Mucus Rare H (None) /hpf 07/20/16 07/20/16 07/20/16 Range/Units 05:42 05:52 12:04 Sodium 135 L (137-145) mmol/L Potassium 6.1 H (3.5-5.1) mmol/L Carbon Dioxide 20 L (22-30) mmol/L BUN 159 H* (7-17) mg/dL Creatinine 2.94 H (0.52-1.04) mg/dL Glucose 188 H (74-99) mg/dL POC Glucose (mg/dL) 183 H 147 H (75-99) mg/dL Calcium 8.3 L (8.4-10.2) mg/dL Urine Protein (Negative) Urine Mucus (None) /hpf Microbiology - Last 24 Hours (Table) 07/14/16 13:52 Blood Culture - Preliminary Blood No Growth after 120 hours Assessment and Plan Plan: 1 acute shortness of breath secondary to an acute CHF exacerbation. Most likely diastolic in nature. On 07/15/2016 the patient is clinically improved. The patient is being treated for both CHF . The patient is on IV Lasix. Antibiotic coverage includes a combination of tigecycline and Levaquin. Which I will discontinue today, and switch her to oral treatment only. On 07/16/2016, the patient is being seen in follow-up. The patient is still being treated for bilateral pneumonia with the same antibiotic coverage which includes a combination of tigecycline and Levaquin. Chest x-ray from today shows persistent infiltration of the lung bases and a pneumonia persists. Meanwhile the patient is still being diuresis and the diuretics have been cut down to Lasix 40 mg IV every 24 hours. Clinically improved. Chest x-ray is lagging behind. No microbial cultures of been established on this patient. Her cardiac rhythm is atrial fibrillation and the patient's rhythm is under better control for now. She is on no anticoagulants. On 07/17/2016, the patient is essentially the same. I will see the chest x-ray shows improvement in the right lower lobe pulmonary infiltration as the patient is being covered with broad-spectrum antibiotics. Diuretics need to be placed on hold as long as the patient has developed a acute on top of a chronic renal failure picture, the acute component being related to prerenal azotemia secondary to diuresis. On 07/18, patient is feeling better, hence will cut down on the IV antibiotics, continue diuretics but may consider cutting down the dose. Consider discharge planning in the next couple of days. On 07/19/2016, patient continues to do well, however her renal profile is concerning, and that being addressed by nephrology on the case. On 07/20/2016, patient seems to be getting worse, she has mostly constitutional symptoms of not feeling well. Her x-ray is better, renal profile seems to be quite abnormal, and that being addressed by nephrology. Patient remains off diuretics for now, hoping she doesn't develop congestive heart failure again. 2 acute hypoxic respiratory failure, currently off BiPAP and the patient is on high flow oxygen 6 L/m nasal cannula 3 acute asthma exacerbation 4 morbid obesity 5 chronic renal failure, with an acute rise in the creatinine secondary to diuresis 6 atrial fibrillation fibrillation with rapid ventricular response , recovered and the patient was switched to oral verapamil, rate controlled 7 mild troponin leak without evidence of any significant EKG changes, patient is free of any angina 8 permanent pacemaker insertion for sick sinus syndrome 9 diabetes mellitus 10 severe persistent bronchial asthma at baseline 11 GI bleed attributed to antral ulceration and the patient has been off anticoagulation for now 12 peripheral vascular disease 13 osteoarthritis 14 hypertension Recommendation: Continue present treatment plan, renal issues seem to be a major concern at this point, being addressed by nephrology, recommending holding diuretics, avoiding nephrotoxic agents, and sodium bicarb was added to her treatment. We'll continue to follow Time with Patient: Less than 30
--- NOTE | 2016-07-20 15:16 | P.PN ---
Subjective Principal diagnosis: Shortness of breath This is an 81-year-old female with known history of bronchial asthma, atrial fibrillation status post permanent pacemaker implantation, history of renal failure who presents to the hospital with symptoms of worsening dyspnea with accommodation of lung infection and congestive cardiac failure. Patient was seen and examined this afternoon, continues to have mild wheezing and scattered rhonchi but overall breathing is improving. She denies any chest discomfort, no palpitations. Blood pressure 128/70 with a heart rate in the 80s. Calcium 5.6, BUN 159, creatinine 2.9. Patient is frustrated regarding her kidney status , she did have a discussion today with the telephone instrument supervisor. She is willing is necessary to undergo dialysis. Objective - Vital Signs Vital signs: Vital Signs Temp 97.8 F 07/20/16 12:00 Pulse 88 07/20/16 13:08 Resp 16 07/20/16 12:00 BP 128/83 07/20/16 12:00 Pulse Ox 96 07/20/16 12:00 Intake & Output 07/19/16 07/20/16 07/20/16 18:59 06:59 18:59 Intake Total 780 660 Output Total 650 800 Balance 780 -650 -140 Weight 92.4 kg Intake: Oral 780 660 Output: Urine 650 800 Other: Voiding Method Toilet Toilet Toilet Bedside Commode Bedside Commode Bedside Commode # Voids 1 # Bowel Movements 1 - Exam PHYSICAL EXAMINATION: HEENT: Head is atraumatic, normocephalic. Pupils equal, round. Neck is supple. There is no elevated jugular venous pressure. HEART EXAMINATION: S1 and S2 systolic murmur is heard CHEST EXAMINATION: Lungs reveal mild scattered wheezing ABDOMEN: Soft, nontender. Bowel sounds are heard. No organomegaly noted. EXTREMITIES: 2+ peripheral pulses with no evidence of peripheral edema and no calf tenderness noted. NEUROLOGIC patient is awake, alert and oriented -3. . - Labs CBC & Chem 7: 07/17/16 05:44 07/20/16 05:42 Labs: Abnormal Lab Results - Last 24 Hours (Table) 07/19/16 07/19/16 07/19/16 Range/Units 14:15 16:58 20:48 Sodium (137-145) mmol/L Potassium (3.5-5.1) mmol/L Carbon Dioxide (22-30) mmol/L BUN (7-17) mg/dL Creatinine (0.52-1.04) mg/dL Glucose (74-99) mg/dL POC Glucose (mg/dL) 163 H 155 H (75-99) mg/dL Calcium (8.4-10.2) mg/dL Urine Protein 1+ H (Negative) Urine Mucus Rare H (None) /hpf 07/20/16 07/20/16 07/20/16 Range/Units 05:42 05:52 12:04 Sodium 135 L (137-145) mmol/L Potassium 6.1 H (3.5-5.1) mmol/L Carbon Dioxide 20 L (22-30) mmol/L BUN 159 H* (7-17) mg/dL Creatinine 2.94 H (0.52-1.04) mg/dL Glucose 188 H (74-99) mg/dL POC Glucose (mg/dL) 183 H 147 H (75-99) mg/dL Calcium 8.3 L (8.4-10.2) mg/dL Urine Protein (Negative) Urine Mucus (None) /hpf Microbiology - Last 24 Hours (Table) 07/14/16 13:52 Blood Culture - Preliminary Blood No Growth after 120 hours Assessment and Plan (1) Chronic a-fib Status: Acute (2) Pacemaker Status: Acute (3) Acute exacerbation of chronic obstructive airways disease Status: Acute (4) Acute on chronic renal failure Status: Acute (5) Acute respiratory failure Status: Acute (6) COPD exacerbation Status: Acute (7) Systolic congestive heart failure Status: Acute Plan: From cardiology's perspective, we'll continue to hold off on any diuretics for now. IV fluids as per nephrology. Possible dialysis in the near future. DNP note has been reviewed, I agree with a documented findings and plan of care. Patient was seen and examined.
[2016-07-20] MEDS: IPRATROPIUM 0.5 MG/2.5 ML NEBU INHALATION SCH ×2 (15:42→20:18)
[2016-07-20] MEDS: LEVALBUTEROL NEB (CONC) 1.25 MG/0.5 ML AMP INHALATION SCH ×2 (15:42→20:18)
[2016-07-20] MEDS: SODIUM CHLORIDE 0.9% 1,000 ML IV SCH ×2 (15:46→19:38)
[2016-07-20 16:56] LABS: Glucose,Whole Blood 173 mg/dL (75-99)
[2016-07-20] MEDS: LEVOFLOXACIN 250 MG TAB PO SCH (19:06)
[2016-07-20 20:46] LABS: Glucose,Whole Blood 179 mg/dL (75-99)
--- NOTE | 2016-07-20 23:02 | PN ---
DATE OF SERVICE: 07/20/2016 PRESENTING COMPLAINT: Tired. INTERVAL HISTORY: This patient presented with acute asthma exacerbation, some element of CHF, and also atrial fibrillation/flutter with rapid ventricular rate. Patient has gone into acute renal failure from diuresis. I started the patient on gentle hydration. Numbers are still up. Does not feel like being out of bed. Rather tired. Her daughter is at the bedside. Review of systems done for constitutional, cardiovascular, GI, pulmonary; relevant findings as above. Current medications are reviewed that include oral prednisone, sodium bicarb, IV fluids at 50 mL/hour. On examination, temperature 97.8, pulse 77, respiration 16, blood pressure 128/83, pulse ox 96% on room air. GENERAL APPEARANCE: Lying in bed, very tired-appearing. EYES: Pupils equal. Conjunctivae normal. NECK: JVD not raised. Mass not palpable. RESPIRATORY: Effort normal. LUNGS: Fair air entry. CARDIOVASCULAR: Heart sounds irregular. No edema. ABDOMEN: Soft, nontender. Liver and spleen not palpable. PSYCHIATRY: Alert and oriented x3. Mood and affect tired-appearing. INVESTIGATIONS: Potassium 6.1. BUN 159, creatinine 2.94. ASSESSMENT: 1. Acute severe exacerbation of moderate persistent asthma, improving. 2. Acute congestive heart failure exacerbation from systolic dysfunction; ejection fraction 40% to 45%; from underlying hypertensive heart disease, improved. 3. Persistent atrial fibrillation with rapid ventricular response on presentation, now better. 4. Essential hypertension. 5. Acute renal failure, prerenal, from diuretics, worsening. 6. Chronic kidney disease, stage III, from diabetic nephropathy and hypertensive nephrosclerosis. 7. Peripheral artery disease. 8. Primary osteoarthritis of multiple joints bilaterally. 9. Sick sinus syndrome with a pacemaker in place. 10. Troponin leak, probably from hemodynamic instability. 11. Acute hypoxic respiratory failure, multifactorial. 12. Bilateral pneumonia, present on admission, responding to antibiotics. PLAN: Continue with IV hydration. Patient's renal failure will explain patient's exhaustion and tiredness. Care was discussed with her daughter at the bedside. Renal-offensive drugs will be held off, though not at present. Sodium bicarbonate to continue. Will increase the IV fluids to 75 mL/hour, as patient's oral intake has gone down. Patient for the hyperkalemia did get a dose of Kayexalate.
[2016-07-20] MEDS: INSULIN GLARGINE 100 UNIT/ML 10 ML VIAL SQ SCH (23:10)
[2016-07-20] MEDS: VERAPAMIL SR 180 MG TABLET.ER PO SCH (23:13)
[2016-07-20] MEDS: MONTELUKAST 10 MG TAB PO SCH (23:13)
[2016-07-20 23:21] LABS: Glucose,Whole Blood 133 mg/dL (75-99)
[2016-07-21] MEDS: INSULIN LISPRO (humaLOG) 300 UNIT/3 ML VIAL SQ SCH ×5 (05:43→21:52)
[2016-07-21 06:33] LABS: Glucose,Whole Blood 166 mg/dL (75-99)
[2016-07-21] MEDS: SODIUM CHLORIDE 0.9% 1,000 ML IV SCH ×2 (06:37→21:51)
[2016-07-21 06:44] LABS: Calcium 8.4 mg/dL (8.4-10.2); Potassium 4.9 mmol/L (3.5-5.1)
[2016-07-21] MEDS: IPRATROPIUM 0.5 MG/2.5 ML NEBU INHALATION SCH ×5 (07:10→20:11)
[2016-07-21] MEDS: LEVALBUTEROL NEB (CONC) 1.25 MG/0.5 ML AMP INHALATION SCH ×5 (07:10→20:11)
[2016-07-21] MEDS: METOPROLOL TARTRATE 25 MG TAB PO SCH ×2 (08:55→21:52)
[2016-07-21] MEDS: PREGABALIN 75 MG CAP PO SCH ×2 (08:55→21:52)
[2016-07-21] MEDS: PANTOPRAZOLE 40 MG TABLET PO SCH (08:56)
[2016-07-21] MEDS: SODIUM BICARBONATE TAB 650 MG TAB PO SCH ×2 (08:56→21:54)
[2016-07-21] MEDS: ATORVASTATIN 40 MG TAB PO SCH (08:57)
[2016-07-21] MEDS: predniSONE 20 MG TAB PO SCH (08:57)
[2016-07-21] MEDS: ALLOPURINOL 100 MG TAB PO SCH (08:57)
--- NOTE | 2016-07-21 09:50 | PN ---
Patient is seen for followup for acute kidney injury. She was restarted on IV fluids yesterday. Her renal function has improved to some degree today. She has had good urine output and overall the patient states she is feeling slightly better. She is not more short of breath. On examination, blood pressure is 126/84, heart rate 92 per minute. She is afebrile. EXAMINATION OF THE HEART: S1 and S2. EXAMINATION OF THE LUNGS: Bilateral breath sounds are heard. Decreased breath sounds in bases. No crackles or wheezing is heard. ABDOMEN: Soft, obese. Examination of lower extremities shows trace edema bilaterally. Chronic skin changes are noted. PUBLISHING DIRECTOR exam is grossly intact. No asterixis is noted. Labs show sodium 140, potassium 4.9, BUN 139, serum creatinine 2.6. ASSESSMENT: 1. Acute kidney injury, acute tubular necrosis, currently slightly improved. Will continue with IV fluids but decrease rate to about 50 mL an hour. 2. Chronic kidney disease, stage IV secondary to diabetic nephropathy with baseline creatinine about 1.7 to 2 mg/dL as outpatient. 3. Hyperkalemia, currently improved, status post Kayexalate, which was given yesterday. 4. Cardiomyopathy, ejection fraction of 40% to 45%. 5. Atrial fibrillation with rapid ventricular response, currently with controlled ventricular response. 6. Type 2 diabetes. 7. Hypoxic respiratory failure on initial admission and patient had been on BiPAP currently off of it. 8. Volume overload on initial admission, currently improved. PLAN: May continue fluids but decrease rate to 50 mL an hour. Hold off on dialysis as renal function has improved slightly. Repeat labs in the a.m. Continue to avoid nephrotoxic agents.
[2016-07-21 11:26] LABS: Hemoglobin A1C 6.9 % (4.2-6.1)
[2016-07-21 12:14] LABS: Glucose,Whole Blood 110 mg/dL (75-99)
--- NOTE | 2016-07-21 13:35 | P.PN ---
Subjective Principal diagnosis: Acute congestive heart failure secondary to systolic dysfunction and atrial fibrillation with RVR. 81-year-old female patient, obese with known history of chronic atrial fibrillation, CHF with diastolic dysfunction, sick sinus syndrome with previous pacemaker insertion along with hypertension and hyperlipidemia and peripheral vascular disease who comes into the hospital because of worsening shortness of breath. She has had hospitalizations over the past few years , the most recent of which was in April 2016 when the patient was in the hospital for GI bleeding. During this current admission, the patient came in for increased shortness of breath. She was a 2 fibrillation with rapid ventricular response. She was transferred from [place] on a BiPAP and subsequently she was admitted to the intensive care unit for further evaluation and management. Currently the patient on a BiPAP at a pressure of 10 over 5 and FiO2 of 40%. She is also on a Cardizem drip at the rate of 10 mg an hour. Chest x-ray showed cardiomegaly with small right more than left sided pleural effusion and right basilar infiltrate and there is a new left midlung infiltration also noted. The patient was suspected to have acute CHF and the patient was started on IV Lasix 40 mg every 12 hours and she is producing adequate amount of urine output. Nevertheless, the possibility of a pneumonia cannot be completely excluded. She has no fever. No chills. No significant sputum production. No DVT or pulmonary embolism. No aspiration. She is a lifetime nonsmoker. She has been reported to have chronic persistent bronchial asthma maintained on Pulmicort Respules twice a day and Xopenex tablets treatments 4 times a day [id number] and daily prednisone alternating between 2.5 and 5 mg daily basis. Yesterday, the patient was seen in our office and her prednisone dose was increased up to 30 mg by mouth daily. Despite this change, no major improvement and the patient and up coming to the hospital for further evaluation and treatment. There is a minimal troponin leak with a first set being at 0.05, EKG showing atrial fibrillation with rapid ventricular response without any evidence of ST segment elevations. On 07/15/2016 the patient is being seen in follow-up. Overnight, the patient was treated with a combination of diuretics and antibiotics. Heart failure was suspected although possibility of bilateral pneumonia is also being considered nontender the patient has patchy pulmonary infiltrates in the left upper lobe and the right lower lobe. The patient is still on Lasix and she is receiving 40 mg IV every 12 hours. The patient was given Levaquin and added tigecycline based on today's chest x-ray that shows persistent consolidation/infiltration of the right lung base. Meanwhile, the patient's respiratory status is improved and the patient was taken off the BiPAP and currently is on 6 L of oxygen nasal cannula. Her pulse ox around 92% pH is less short of breath she is able to speak of. This is. She remains afebrile and there is no significant leukocytosis. Renal function is stable with a creatinine of 1.7. In terms of her atrial fibrillation, the patient was taken off the IV Cardizem and the patient was switched to verapamil oral 180 mg by mouth daily. Rate is under better control. IV Solu Medrol will also be tapered. She did develop some steroid-induced hyperglycemia. On 07/16/2016, the patient is being seen in [facility]U. The patient Is clinically improved however her chest x-ray still showing bilateral pulmonary infiltrates worse in the right lower lobe. I've treated this patient with a combination of tigecycline and Levaquin. She has bringing up some more sputum today and the sample will be sent for cultures. Blood cultures of been negative. The patient is currently off BiPAP. Earlier this morning she was on 6 L of oxygen by nasal cannula to maintain a saturation above 92%. The patient's also got treated with a combination of bronchodilators and steroids and her Lasix has been drop down to 40 mg every 24 hours knowing that there is has been a small rise in her creatinine. No other complaints otherwise for now. She is fully alert and awake and communicating. On 07/17/2016, the patient is being seen in follow-up. The patient was moved out of the intensive care unit yesterday. Of cover this patient with a combination of tigecycline and Levaquin for potential patchy bilateral pneumonia. On today's chest x-ray the patchy pneumonic infiltrates in the right lung is improving yet the patient still has some underlying CHF findings. The patient is of BiPAP. She is on 6 L of oxygen by nasal cannula and we haven't been able to wean her off the oxygen over the past 24 hours. She gets short of breath with minimal to moderate activity and she is very comfortable at rest. No fever. No chills. No other new complaints otherwise for now. She remains on IV Solu Medrol 40 g every 12 hours in addition to Xopenex nebulized treatments around the clock. The patient has developed prerenal azotemia with a creatinine coming up to 2.4 and she was taken off the Lasix. Patient was reevaluated on 07/18/2016, continues to do relatively well, breathing a lot easier, chest x-ray is showing definite improvement but continues to have mild bilateral pleural effusions, and a small amount of fluid in the fissure on the right side. Comparing to her initial presentation chest x -ray, this is a significant improvement, and again I believe the findings initially were all findings of congestive heart failure not pneumonia. Renal profile was noted, BUN is up to 131 creatinine is 2.62. Reevaluated today on 07/19/2016, patient continues to do better, breathing easier , less cough and less wheezing less shortness of breath. BUN is up to 150 creatinine is 2.80 and bicarb is 15. Her renal status is being closely monitored by the audiovisual tech on the case, and he recommended holding diuretics. Slow hydration, encourage oral intake, and avoid nephrotoxic agents. He also added sodium bicarb twice a day. Pulmonary-julio patient continues to do relatively well. At her last chest x-ray showed improvement in the congestive heart failure. Again I strongly doubt any underlying pneumonia. Reevaluated today on 07/20/2016, patient is not feeling as good today as she felt yesterday. She has generalized weakness, intermittent cough and wheezing. Feels much worse compared to how she felt in the last few days. Her electrolytes showed hyperkalemia, BUN is up to 159 and creatinine is 2.94, and her chest x-ray is showing significant improvement in her congestive heart failure. Had diuretics have been addressed, and now she is being followed by nephrology regarding her renal failure. Presently she is off all diuretics, and hoping that the patient's renal status will improve, and hoping that she doesn't go back into congestive heart failure again. IV access seems to be a bit of an issue, patient may need a PICC line placement. Reevaluated today on 07/21/2016, she is feeling much per her today compared to yesterday. Less weakness less shortness of breath. Her labs are showing some improvement, renal profile is a bit better and seems to be heading in the right direction. Her last chest x-ray yesterday showed no evidence of congestive heart failure. Patient is off diuretics, and she is being hydrated very cautiously. Again her renal functioning is improving, currently being followed closely by nephrology. Pulmonary-julio, no cough no wheezing, no shortness of breath at present. Objective - Vital Signs Vital signs: Vital Signs Temp 96.4 F L 07/21/16 08:00 Pulse 76 07/21/16 11:36 Resp 18 07/21/16 08:00 BP 142/79 07/21/16 08:00 Pulse Ox 97 07/21/16 08:00 Intake & Output 07/20/16 07/21/16 07/21/16 18:59 06:59 18:59 Intake Total 860 825 180 Output Total 800 1650 400 Balance 60 -825 -220 Weight 91.5 kg Intake: Intake, IV Titration 825 Amount Sodium Chloride 0.9% 1, 825 000 ml @ 75 mls/hr IV . [id number] [facility] Rx#:[id number] Oral 860 180 Output: Urine 800 1650 400 Other: Voiding Method Toilet Toilet Bedside Commode Bedside Commode # Voids 1 # Bowel Movements 1 2 - Exam Physical Exam: Revealed an 81-year-old female in no distress. On nasal cannula. HEENT:[Neck is supple.] [No neck masses.] [No thyromegaly.] [No JVD.] Chest: [Minimal fine crackles at the bases, no crackles or rhonchi or wheezes] Cardiac Exam: [Irregular irregular rhythm, 2/6 systolic murmur throughout the precordium.] Abdomen: [Soft, nontender, no megaly, no rebound, no guarding, normal bowel sounds.] Extremities: [No clubbing, trace of bipedal edema, no cyanosis.] Neurological Exam: [No focal neurologic deficit.] - Labs CBC & Chem 7: 07/17/16 05:44 07/21/16 06:18 Labs: Abnormal Lab Results - Last 24 Hours (Table) 07/20/16 07/20/16 07/20/16 Range/Units 16:55 20:43 23:10 BUN (7-17) mg/dL Creatinine (0.52-1.04) mg/dL Glucose (74-99) mg/dL POC Glucose (mg/dL) 173 H 179 H 133 H (75-99) mg/dL Hemoglobin A1c (4.2-6.1) % 07/21/16 07/21/16 07/21/16 Range/Units 06:15 06:18 06:31 BUN 139 H* (7-17) mg/dL Creatinine 2.60 H (0.52-1.04) mg/dL Glucose 121 H (74-99) mg/dL POC Glucose (mg/dL) 166 H (75-99) mg/dL Hemoglobin A1c 6.9 H (4.2-6.1) % 07/21/16 Range/Units 11:38 BUN (7-17) mg/dL Creatinine (0.52-1.04) mg/dL Glucose (74-99) mg/dL POC Glucose (mg/dL) 110 H (75-99) mg/dL Hemoglobin A1c (4.2-6.1) % Microbiology - Last 24 Hours (Table) 07/14/16 13:52 Blood Culture - Final Blood No Growth after 144 hours Assessment and Plan Plan: 1 acute shortness of breath secondary to an acute CHF exacerbation. Most likely diastolic in nature. . On 07/18, patient is feeling better, hence will cut down on the IV antibiotics, continue diuretics but may consider cutting down the dose. Consider discharge planning in the next couple of days. On 07/19/2016, patient continues to do well, however her renal profile is concerning, and that being addressed by nephrology on the case. On 07/20/2016, patient seems to be getting worse, she has mostly constitutional symptoms of not feeling well. Her x-ray is better, renal profile seems to be quite abnormal, and that being addressed by nephrology. Patient remains off diuretics for now, hoping she doesn't develop congestive heart failure again. On 07/21/2016, patient is feeling better, breathing easier, labs are improving especially her renal profile, hence we'll continue present treatment plan, and hopefully discharge planning in the next couple of days. 2 acute hypoxic respiratory failure, currently off BiPAP and the patient is on high flow oxygen 6 L/m nasal cannula 3 acute asthma exacerbation 4 morbid obesity 5 chronic renal failure, with an acute rise in the creatinine secondary to diuresis 6 atrial fibrillation fibrillation with rapid ventricular response , recovered and the patient was switched to oral verapamil, rate controlled 7 mild troponin leak without evidence of any significant EKG changes, patient is free of any angina 8 permanent pacemaker insertion for sick sinus syndrome 9 diabetes mellitus 10 severe persistent bronchial asthma at baseline 11 GI bleed attributed to antral ulceration and the patient has been off anticoagulation for now 12 peripheral vascular disease 13 osteoarthritis 14 hypertension Recommendation: Continue present treatment plan, renal issues seem to be a major concern at this point, being addressed by nephrology, recommending holding diuretics, avoiding nephrotoxic agents, and sodium bicarb was added to her treatment. We'll continue to follow Time with Patient: Less than 30
--- NOTE | 2016-07-21 15:04 | P.PN ---
Subjective Principal diagnosis: Shortness of breath This is an 81-year-old female with known history of bronchial asthma, atrial fibrillation status post permanent pacemaker implantation, history of renal failure who presents to the hospital with symptoms of worsening dyspnea with accommodation of lung infection and congestive cardiac failure. Patient was seen and examined this afternoon, continues to have mild wheezing and scattered rhonchi but overall breathing is improving. She denies any chest discomfort, no palpitations. Blood pressure 128/70 with a heart rate in the 80s. Calcium 5.6, BUN 139, creatinine 2.6. Objective - Vital Signs Vital signs: Vital Signs Temp 96.4 F L 07/21/16 08:00 Pulse 76 07/21/16 11:36 Resp 18 07/21/16 08:00 BP 142/79 07/21/16 08:00 Pulse Ox 97 07/21/16 08:00 Intake & Output 07/20/16 07/21/16 07/21/16 18:59 06:59 18:59 Intake Total 860 825 180 Output Total 800 1650 400 Balance 60 -825 -220 Weight 91.5 kg Intake: Intake, IV Titration 825 Amount Sodium Chloride 0.9% 1, 825 000 ml @ 75 mls/hr IV . [id number] [facility] Rx#:[id number] Oral 860 180 Output: Urine 800 1650 400 Other: Voiding Method Toilet Toilet Bedside Commode Bedside Commode # Voids 1 # Bowel Movements 1 2 - Exam PHYSICAL EXAMINATION: HEENT: Head is atraumatic, normocephalic. Pupils equal, round. Neck is supple. There is no elevated jugular venous pressure. HEART EXAMINATION: S1 and S2 systolic murmur is heard CHEST EXAMINATION: Lungs reveal mild scattered wheezing ABDOMEN: Soft, nontender. Bowel sounds are heard. No organomegaly noted. EXTREMITIES: 2+ peripheral pulses with no evidence of peripheral edema and no calf tenderness noted. NEUROLOGIC patient is awake, alert and oriented -3. . - Labs CBC & Chem 7: 07/17/16 05:44 07/21/16 06:18 Labs: Abnormal Lab Results - Last 24 Hours (Table) 07/20/16 07/20/16 07/20/16 Range/Units 16:55 20:43 23:10 BUN (7-17) mg/dL Creatinine (0.52-1.04) mg/dL Glucose (74-99) mg/dL POC Glucose (mg/dL) 173 H 179 H 133 H (75-99) mg/dL Hemoglobin A1c (4.2-6.1) % 07/21/16 07/21/16 07/21/16 Range/Units 06:15 06:18 06:31 BUN 139 H* (7-17) mg/dL Creatinine 2.60 H (0.52-1.04) mg/dL Glucose 121 H (74-99) mg/dL POC Glucose (mg/dL) 166 H (75-99) mg/dL Hemoglobin A1c 6.9 H (4.2-6.1) % 07/21/16 Range/Units 11:38 BUN (7-17) mg/dL Creatinine (0.52-1.04) mg/dL Glucose (74-99) mg/dL POC Glucose (mg/dL) 110 H (75-99) mg/dL Hemoglobin A1c (4.2-6.1) % Microbiology - Last 24 Hours (Table) 07/14/16 13:52 Blood Culture - Final Blood No Growth after 144 hours Assessment and Plan (1) Chronic a-fib Status: Acute (2) Pacemaker Status: Acute (3) Acute exacerbation of chronic obstructive airways disease Status: Acute (4) Acute on chronic renal failure Status: Acute (5) Acute respiratory failure Status: Acute (6) COPD exacerbation Status: Acute (7) Systolic congestive heart failure Status: Acute Plan: From cardiology's perspective, we'll continue to hold off on any diuretics for now. IV fluids as per nephrology. Possible dialysis in the near future. DNP note has been reviewed, I agree with a documented findings and plan of care. Patient was seen and examined.
[2016-07-21 16:53] LABS: Glucose,Whole Blood 180 mg/dL (75-99)
[2016-07-21 20:44] LABS: Glucose,Whole Blood 210 mg/dL (75-99)
[2016-07-21] MEDS: INSULIN GLARGINE 100 UNIT/ML 10 ML VIAL SQ SCH (21:51)
[2016-07-21] MEDS: VERAPAMIL SR 180 MG TABLET.ER PO SCH (21:52)
[2016-07-21] MEDS: MONTELUKAST 10 MG TAB PO SCH (21:52)
--- NOTE | 2016-07-21 23:24 | PN ---
DATE OF SERVICE: 07/21/2016 PRESENTING COMPLAINT: Tired. INTERVAL HISTORY: Patient presented with acute exacerbation, some element of CHF; also atrial flutter/fibrillation. Patient went into acute renal failure from diuresis. A bit more perky today. Actually did eat her meals. Now feeling tired. Renal function has started to turn around. Getting 75 mL/hour of IV fluids. Review of systems done for constitutional, cardiovascular, GI, pulmonary; relevant findings as above. Current medications are reviewed that include IV fluids at 75 mL/hour. On examination, temperature 96.4, pulse 94, respiration 18, blood pressure 149/88, pulse ox 95% on room air. GENERAL APPEARANCE: Sitting up, tired-appearing, but more awake than yesterday. EYES: Pupils equal. Conjunctivae normal. NECK: JVD not raised. Mass not palpable. RESPIRATORY: Effort increased. LUNGS: Fair air entry. CARDIOVASCULAR: Heart sounds irregular. Edema, mild. ABDOMEN: Soft, nontender. Liver and spleen not palpable. PSYCHIATRY: Alert and oriented x3. Mood and affect tired-appearing. INVESTIGATIONS: Potassium 4.9. BUN 139, creatinine 2.60. Accu-Cheks are noted. ASSESSMENT: 1. Acute severe exacerbation of moderate persistent asthma, improved. 2. Acute congestive heart failure exacerbation from systolic dysfunction; ejection fraction 40% to 45%, from underlying hypertensive heart disease, improved. 3. Persistent atrial fibrillation with rapid ventricular response on presentation, now better. 4. Essential hypertension. 5. Acute renal failure, prerenal, from diuretics. This has started to turn around. 6. Chronic kidney disease, stage III, from diabetic nephropathy and hypertensive nephrosclerosis. 7. Peripheral arterial disease. 8. Primary osteoarthritis of multiple joints bilaterally. 9. Sick sinus syndrome with a pacemaker in place. 10. Troponin leak, probably from hemodynamic instability. 11. Acute hypoxic respiratory failure, multifactorial. 12. Bilateral pneumonia, present on admission, responding to antibiotics. 13. Medical debility. Patient feels rather weak and tired. PLAN: I spoke to the patient's daughter. We will continue to hydrate the patient. Patient's BUN and creatinine have started to turn around. I expect it to get better ( ) disposition ( ) patient may need inpatient rehab as to going home, as she is not able to walk much. Will check again.
[2016-07-22 06:25] LABS: Glucose,Whole Blood 193 mg/dL (75-99)
[2016-07-22 06:47] LABS: Calcium 8.5 mg/dL (8.4-10.2); Potassium 4.6 mmol/L (3.5-5.1)
[2016-07-22] MEDS: INSULIN LISPRO (humaLOG) 300 UNIT/3 ML VIAL SQ SCH ×4 (06:47→22:03)
[2016-07-22] MEDS: LEVALBUTEROL NEB (CONC) 1.25 MG/0.5 ML AMP INHALATION SCH ×4 (09:19→20:19)
[2016-07-22] MEDS: IPRATROPIUM 0.5 MG/2.5 ML NEBU INHALATION SCH ×4 (09:19→20:19)
--- NOTE | 2016-07-22 09:32 | PN ---
Patient is seen for followup for acute kidney injury. Her renal function continues to improve. She is maintained on gentle IV hydration. The patient states overall she is feeling better. Her shortness of breath is also improved. She is eating a bit more. On examination, blood pressure is 126/84, heart rate 104 per minute. She is afebrile. EXAMINATION OF THE HEART: S1 and S2. EXAMINATION OF THE LUNGS: Bilateral breath sounds are heard. No crackles or wheezing is heard. ABDOMEN: Soft, obese, nontender. Examination of lower extremities shows trace edema with chronic skin changes bilaterally. ANIMAL CARE PROVIDER exam is grossly intact. Patient is moving all 4 extremities. Labs show sodium 140, potassium 4.6, BUN 117, serum creatinine 2.3. ASSESSMENT: 1. Acute kidney injury, acute tubular necrosis, currently improving. Patient was also hypovolemic over the last few days and had been maintained on IV fluids. Renal function has improved with hydration; however, I will discontinue the fluids now as she did come in with fluid overload on initial admission. 2. Chronic kidney disease, stage 4secondary to diabetic nephropathy with baseline creatinine about 1.7 to 2 mg/dL. 3. Hyperkalemia, currently resolved. 4. Cardiomyopathy, ejection fraction 40% to 45%. 5. Atrial fibrillation with rapid ventricular response initially now with controlled ventricular response. 6. Type 2 diabetes. 7. Congestive heart failure volume overload on initial admission, currently resolved. PLAN: Discontinue IV fluids. Encourage increased oral intake. Continue off of Lasix for now.
[2016-07-22] MEDS: METOPROLOL TARTRATE 25 MG TAB PO SCH ×2 (09:55→19:57)
[2016-07-22] MEDS: PREGABALIN 75 MG CAP PO SCH ×2 (09:56→19:57)
[2016-07-22] MEDS: PANTOPRAZOLE 40 MG TABLET PO SCH (09:56)
[2016-07-22] MEDS: predniSONE 20 MG TAB PO SCH (09:56)
[2016-07-22] MEDS: ALLOPURINOL 100 MG TAB PO SCH (09:56)
[2016-07-22] MEDS: ATORVASTATIN 40 MG TAB PO SCH (09:57)
[2016-07-22] MEDS: SODIUM BICARBONATE TAB 650 MG TAB PO SCH ×2 (09:57→19:57)
[2016-07-22 11:11] LABS: Glucose,Whole Blood 173 mg/dL (75-99)
--- NOTE | 2016-07-22 11:50 | P.PN ---
Subjective Principal diagnosis: Shortness of breath This is an 81-year-old female with known history of bronchial asthma, atrial fibrillation status post permanent pacemaker implantation, history of renal failure who presents to the hospital with symptoms of worsening dyspnea with accommodation of lung infection and congestive cardiac failure. Patient was seen and examined this afternoon, continues to have mild wheezing and scattered rhonchi but overall breathing is improving. She denies any chest discomfort, no palpitations. Blood pressure 148/80 with a heart rate in the 70s. Potassium 4.6, BUN 117, creatinine 2.3, improving . Objective - Vital Signs Vital signs: Vital Signs Temp 97 F L 07/22/16 08:00 Pulse 72 07/22/16 09:34 Resp 19 07/22/16 08:00 BP 149/87 07/22/16 08:00 Pulse Ox 97 07/22/16 08:00 Intake & Output 07/21/16 07/22/16 07/22/16 18:59 06:59 18:59 Intake Total 360 118 Output Total 900 650 Balance -540 -650 118 Weight 91 kg Intake: Oral 360 118 Output: Urine 900 650 Other: # Voids 1 1 - Exam PHYSICAL EXAMINATION: HEENT: Head is atraumatic, normocephalic. Pupils equal, round. Neck is supple. There is no elevated jugular venous pressure. HEART EXAMINATION: S1 and S2 systolic murmur is heard CHEST EXAMINATION: Lungs reveal mild scattered wheezing ABDOMEN: Soft, nontender. Bowel sounds are heard. No organomegaly noted. EXTREMITIES: 2+ peripheral pulses with no evidence of peripheral edema and no calf tenderness noted. NEUROLOGIC patient is awake, alert and oriented -3. . - Labs CBC & Chem 7: 07/17/16 05:44 07/22/16 05:58 Labs: Abnormal Lab Results - Last 24 Hours (Table) 07/21/16 07/21/16 07/21/16 Range/Units 06:15 11:38 16:34 BUN (7-17) mg/dL Creatinine (0.52-1.04) mg/dL Glucose (74-99) mg/dL POC Glucose (mg/dL) 110 H 180 H (75-99) mg/dL Hemoglobin A1c 6.9 H (4.2-6.1) % 07/21/16 07/22/16 07/22/16 Range/Units 20:13 05:58 06:23 BUN 117 H* (7-17) mg/dL Creatinine 2.30 H (0.52-1.04) mg/dL Glucose 192 H (74-99) mg/dL POC Glucose (mg/dL) 210 H 193 H (75-99) mg/dL Hemoglobin A1c (4.2-6.1) % 07/22/16 Range/Units 11:02 BUN (7-17) mg/dL Creatinine (0.52-1.04) mg/dL Glucose (74-99) mg/dL POC Glucose (mg/dL) 173 H (75-99) mg/dL Hemoglobin A1c (4.2-6.1) % Assessment and Plan (1) Chronic a-fib Status: Acute (2) Pacemaker Status: Acute (3) Acute exacerbation of chronic obstructive airways disease Status: Acute (4) Acute on chronic renal failure Status: Acute (5) Acute respiratory failure Status: Acute (6) COPD exacerbation Status: Acute (7) Systolic congestive heart failure Status: Acute Plan: From cardiology's perspective, we'll continue to hold off on any diuretics for now. IV fluids as per nephrology. Gradually improving overall. DNP note has been reviewed, I agree with a documented findings and plan of care. Patient was seen and examined.
--- NOTE | 2016-07-22 12:25 | P.PN ---
Subjective 81-year-old female patient, obese with known history of chronic atrial fibrillation, CHF with diastolic dysfunction, sick sinus syndrome with previous pacemaker insertion along with hypertension and hyperlipidemia and peripheral vascular disease who comes into the hospital because of worsening shortness of breath. She has had hospitalizations over the past few years , the most recent of which was in April 2016 when the patient was in the hospital for GI bleeding. During this current admission, the patient came in for increased shortness of breath. She was a 2 fibrillation with rapid ventricular response. She was transferred from [place] on a BiPAP and subsequently she was admitted to the intensive care unit for further evaluation and management. Currently the patient on a BiPAP at a pressure of 10 over 5 and FiO2 of 40%. She is also on a Cardizem drip at the rate of 10 mg an hour. Chest x-ray showed cardiomegaly with small right more than left sided pleural effusion and right basilar infiltrate and there is a new left midlung infiltration also noted. The patient was suspected to have acute CHF and the patient was started on IV Lasix 40 mg every 12 hours and she is producing adequate amount of urine output. Nevertheless, the possibility of a pneumonia cannot be completely excluded. She has no fever. No chills. No significant sputum production. No DVT or pulmonary embolism. No aspiration. She is a lifetime nonsmoker. She has been reported to have chronic persistent bronchial asthma maintained on Pulmicort Respules twice a day and Xopenex tablets treatments 4 times a day [id number] and daily prednisone alternating between 2.5 and 5 mg daily basis. Yesterday, the patient was seen in our office and her prednisone dose was increased up to 30 mg by mouth daily. Despite this change, no major improvement and the patient and up coming to the hospital for further evaluation and treatment. There is a minimal troponin leak with a first set being at 0.05, EKG showing atrial fibrillation with rapid ventricular response without any evidence of ST segment elevations. On 07/15/2016 the patient is being seen in follow-up. Overnight, the patient was treated with a combination of diuretics and antibiotics. Heart failure was suspected although possibility of bilateral pneumonia is also being considered nontender the patient has patchy pulmonary infiltrates in the left upper lobe and the right lower lobe. The patient is still on Lasix and she is receiving 40 mg IV every 12 hours. The patient was given Levaquin and added tigecycline based on today's chest x-ray that shows persistent consolidation/infiltration of the right lung base. Meanwhile, the patient's respiratory status is improved and the patient was taken off the BiPAP and currently is on 6 L of oxygen nasal cannula. Her pulse ox around 92% pH is less short of breath she is able to speak of. This is. She remains afebrile and there is no significant leukocytosis. Renal function is stable with a creatinine of 1.7. In terms of her atrial fibrillation, the patient was taken off the IV Cardizem and the patient was switched to verapamil oral 180 mg by mouth daily. Rate is under better control. IV Solu Medrol will also be tapered. She did develop some steroid-induced hyperglycemia. On 07/16/2016, the patient is being seen in [facility]U. The patient Is clinically improved however her chest x-ray still showing bilateral pulmonary infiltrates worse in the right lower lobe. I've treated this patient with a combination of tigecycline and Levaquin. She has bringing up some more sputum today and the sample will be sent for cultures. Blood cultures of been negative. The patient is currently off BiPAP. Earlier this morning she was on 6 L of oxygen by nasal cannula to maintain a saturation above 92%. The patient's also got treated with a combination of bronchodilators and steroids and her Lasix has been drop down to 40 mg every 24 hours knowing that there is has been a small rise in her creatinine. No other complaints otherwise for now. She is fully alert and awake and communicating. On 07/17/2016, the patient is being seen in follow-up. The patient was moved out of the intensive care unit yesterday. Of cover this patient with a combination of tigecycline and Levaquin for potential patchy bilateral pneumonia. On today's chest x-ray the patchy pneumonic infiltrates in the right lung is improving yet the patient still has some underlying CHF findings. The patient is of BiPAP. She is on 6 L of oxygen by nasal cannula and we haven't been able to wean her off the oxygen over the past 24 hours. She gets short of breath with minimal to moderate activity and she is very comfortable at rest. No fever. No chills. No other new complaints otherwise for now. She remains on IV Solu Medrol 40 g every 12 hours in addition to Xopenex nebulized treatments around the clock. The patient has developed prerenal azotemia with a creatinine coming up to 2.4 and she was taken off the Lasix. Patient was reevaluated on 07/18/2016, continues to do relatively well, breathing a lot easier, chest x-ray is showing definite improvement but continues to have mild bilateral pleural effusions, and a small amount of fluid in the fissure on the right side. Comparing to her initial presentation chest x -ray, this is a significant improvement, and again I believe the findings initially were all findings of congestive heart failure not pneumonia. Renal profile was noted, BUN is up to 131 creatinine is 2.62. Reevaluated today on 07/19/2016, patient continues to do better, breathing easier , less cough and less wheezing less shortness of breath. BUN is up to 150 creatinine is 2.80 and bicarb is 15. Her renal status is being closely monitored by the derrick boat operator on the case, and he recommended holding diuretics. Slow hydration, encourage oral intake, and avoid nephrotoxic agents. He also added sodium bicarb twice a day. Pulmonary-julio patient continues to do relatively well. At her last chest x-ray showed improvement in the congestive heart failure. Again I strongly doubt any underlying pneumonia. Reevaluated today on 07/20/2016, patient is not feeling as good today as she felt yesterday. She has generalized weakness, intermittent cough and wheezing. Feels much worse compared to how she felt in the last few days. Her electrolytes showed hyperkalemia, BUN is up to 159 and creatinine is 2.94, and her chest x-ray is showing significant improvement in her congestive heart failure. Had diuretics have been addressed, and now she is being followed by nephrology regarding her renal failure. Presently she is off all diuretics, and hoping that the patient's renal status will improve, and hoping that she doesn't go back into congestive heart failure again. IV access seems to be a bit of an issue, patient may need a PICC line placement. Reevaluated today on 07/21/2016, she is feeling much per her today compared to yesterday. Less weakness less shortness of breath. Her labs are showing some improvement, renal profile is a bit better and seems to be heading in the right direction. Her last chest x-ray yesterday showed no evidence of congestive heart failure. Patient is off diuretics, and she is being hydrated very cautiously. Again her renal functioning is improving, currently being followed closely by nephrology. Pulmonary-julio, no cough no wheezing, no shortness of breath at present. The patient is seen and evaluated again today on 07/22/2016 on the selective care unit. She is resting quite comfortably in bed. She is awake and alert in no acute distress. She states she is breathing easier today as compared to yesterday. She is maintaining good O2 saturations in the upper 90s on room air. His been afebrile. Her renal function continues to improve and her creatinine is 2.30. Objective - Vital Signs Vital signs: Vital Signs Temp 97 F L 07/22/16 08:00 Pulse 72 07/22/16 09:34 Resp 19 07/22/16 08:00 BP 149/87 07/22/16 08:00 Pulse Ox 97 07/22/16 08:00 Intake & Output 07/21/16 07/22/16 07/22/16 18:59 06:59 18:59 Intake Total 360 118 Output Total 900 650 Balance -540 -650 118 Weight 91 kg Intake: Oral 360 118 Output: Urine 900 650 Other: # Voids 1 1 - Exam GENERAL EXAM: Alert, comfortable in no apparent distress. HEAD: Normocephalic. EYES: Normal reaction of pupils, equal size. NOSE: Clear with pink turbinates. THROAT: No erythema or exudates. NECK: No masses, no significant JVD. CHEST: No chest wall deformity. LUNGS: Equal air entry with faint crackles in the bilateral posterior bases.. CVS: S1 and S2 normal with no audible murmurs, regular rhythm. ABDOMEN: No hepatosplenomegaly, normal bowel sounds, no guarding or rigidity. Extremities: There is trace peripheral edema. No clubbing, no cyanosis. Peripheral pulses are intact. - Labs CBC & Chem 7: 07/17/16 05:44 07/22/16 05:58 Labs: Abnormal Lab Results - Last 24 Hours (Table) 07/21/16 07/21/16 07/22/16 Range/Units 16:34 20:13 05:58 BUN 117 H* (7-17) mg/dL Creatinine 2.30 H (0.52-1.04) mg/dL Glucose 192 H (74-99) mg/dL POC Glucose (mg/dL) 180 H 210 H (75-99) mg/dL 07/22/16 07/22/16 Range/Units 06:23 11:02 BUN (7-17) mg/dL Creatinine (0.52-1.04) mg/dL Glucose (74-99) mg/dL POC Glucose (mg/dL) 193 H 173 H (75-99) mg/dL Assessment and Plan Plan: Impression: 1 acute shortness of breath secondary to an acute CHF exacerbation. Most likely diastolic in nature. 2 acute hypoxic respiratory failure, currently off BiPAP and the patient is on high flow oxygen 6 L/m nasal cannula 3 acute asthma exacerbation 4 morbid obesity 5 chronic renal failure, with an acute rise in the creatinine secondary to diuresis 6 atrial fibrillation fibrillation with rapid ventricular response , recovered and the patient was switched to oral verapamil, rate controlled 7 mild troponin leak without evidence of any significant EKG changes, patient is free of any angina 8 permanent pacemaker insertion for sick sinus syndrome 9 diabetes mellitus 10 severe persistent bronchial asthma at baseline 11 GI bleed attributed to antral ulceration and the patient has been off anticoagulation for now 12 peripheral vascular disease 13 osteoarthritis 14 hypertension Plan: The patient was seen and evaluated by Dr. Flaherty. She is currently stable from the pulmonary standpoint. We'll continue with her current medications. Her renal function continues to improve and she is doing well while her diuretics are being held. We'll increase her activity as tolerated. We'll continue to follow make further recommendations based on her clinical status.
[2016-07-22 16:31] LABS: Glucose,Whole Blood 190 mg/dL (75-99)
[2016-07-22] MEDS: LEVOFLOXACIN 250 MG TAB PO SCH (17:18)
--- NOTE | 2016-07-22 19:44 | PN ---
DATE OF SERVICE: 07/22/2016 PRESENTING COMPLAINT: Tired. INTERVAL HISTORY: This patient presented with acute exacerbation of asthma, has some element of CHF also atrial flutter fibrillation. The patient went into acute renal failure with dialysis, was very lethargic yesterday but now doing much better. Sitting up, tolerating a diet, though still weak. Renal function slowly improving. Dr. Liao earlier discontinued the IV fluids. Review of systems done for constitutional, cardiovascular, GI, pulmonary; relevant findings as above. Current medications are reviewed. Patient is on oral prednisone. On examination, temperature 97, pulse 72, respirations 19, blood pressure 149/87, pulse of 97% on room air. GENERAL APPEARANCE: Sitting up at the edge of bed, actually smiling, looking better. EYES: Pupils equal. Conjunctivae normal. NECK: JVD not raised. Mass not palpable. RESPIRATORY: Effort increased. LUNGS: Fair air entry. CARDIOVASCULAR: Heart sounds irregular. Mild edema. ABDOMEN: Soft, nontender. Liver and spleen not palpable. PSYCHIATRY: Alert and oriented x3. Mood and affect normal. INVESTIGATIONS: Potassium 4.6, BUN 117, creatinine 2.30. ASSESSMENT: 1. Acute chronic obstructive pulmonary disease exacerbation, moderate persistent asthma, improved. 2. Acute congestive heart failure exacerbation from systolic dysfunction; ejection fraction 40% to 45% from underlying hypertensive heart disease, improved. 3. Persistent atrial flutter with rapid ventricular response on presentation, now controlled. 4. Essential hypertension. 5. Acute renal failure, prerenal from diuretics. Numbers have started to come down. 6. 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 7. Peripheral artery disease. 8. Primary osteoarthritis of multiple joints, bilaterally. 9. Sick sinus syndrome with a pacemaker in place. 10. Troponin leak from hemodynamic instability. 11. Acute hypoxic respiratory failure, multifactorial. 12. Bilateral pneumonia, present on admission, responding well to antibiotics. 13. Medical debility from multiple problems. PLAN: I plan to speak to the daughter again. I spoke to Haresh. He did try to get the patient into inpatient rehab, did not happen today. We will see how the patient does, if she gets better. IV fluids have been discontinued. Follow renal function. Hoping the patient can eventually go home. If not, to inpatient rehab with some support. Care was discussed with her daughter.
[2016-07-22] MEDS: INSULIN GLARGINE 100 UNIT/ML 10 ML VIAL SQ SCH (19:56)
[2016-07-22] MEDS: MONTELUKAST 10 MG TAB PO SCH (19:57)
[2016-07-22] MEDS: VERAPAMIL SR 180 MG TABLET.ER PO SCH (19:58)
[2016-07-22 20:59] LABS: Glucose,Whole Blood 244 mg/dL (75-99)
[2016-07-23 05:53] LABS: Glucose,Whole Blood 145 mg/dL (75-99)
[2016-07-23 06:27] LABS: Calcium 8.7 mg/dL (8.4-10.2); Potassium 4.8 mmol/L (3.5-5.1)
[2016-07-23] MEDS: INSULIN LISPRO (humaLOG) 300 UNIT/3 ML VIAL SQ SCH ×4 (06:39→21:51)
[2016-07-23] MEDS: IPRATROPIUM 0.5 MG/2.5 ML NEBU INHALATION SCH ×4 (08:00→20:26)
[2016-07-23] MEDS: LEVALBUTEROL NEB (CONC) 1.25 MG/0.5 ML AMP INHALATION SCH ×4 (08:00→20:26)
[2016-07-23] MEDS: PANTOPRAZOLE 40 MG TABLET PO SCH (09:43)
[2016-07-23] MEDS: ALLOPURINOL 100 MG TAB PO SCH (09:43)
[2016-07-23] MEDS: METOPROLOL TARTRATE 25 MG TAB PO SCH ×2 (09:43→19:59)
[2016-07-23] MEDS: predniSONE 20 MG TAB PO SCH (09:44)
[2016-07-23] MEDS: ATORVASTATIN 40 MG TAB PO SCH (09:44)
[2016-07-23] MEDS: SODIUM BICARBONATE TAB 650 MG TAB PO SCH ×2 (09:45→19:59)
[2016-07-23] MEDS: PREGABALIN 75 MG CAP PO SCH ×2 (09:45→19:59)
[2016-07-23] MEDS: DOCUSATE 100 MG CAP PO PRN (11:20)
--- NOTE | 2016-07-23 11:21 | P.PN ---
Subjective Patient is seen in follow-up for acute kidney injury on chronic kidney disease. 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 Renal function continues to improve with creatinine down to 2 today.. Patient's currently being treated for asthma exacerbation. She is off all diuretics and IV fluids have also been discontinued. She denies any vomiting or diarrhea. Dyspnea is improving. Admits to good urine output. Vital signs are stable. General: The patient appeared well nourished and normally developed. HEENT: Head exam is unremarkable. Neck is without jugular venous distension. LUNGS: Lungs are clear to auscultation and percussion. Breath sounds decreased. HEART: Rate and Rhythm are regular. First and second heart sounds normal. No murmurs, rubs or gallops. ABDOMEN: Abdominal exam reveals normal bowel sounds. Non-tender and non- distended. No evidence of peritonitis. EXTREMITITES: No clubbing, cyanosis, or edema. Objective - Vital Signs Vital signs: Vital Signs Temp 96.9 F L 07/23/16 04:52 Pulse 88 07/23/16 08:16 Resp 16 07/23/16 04:52 BP 146/85 07/23/16 04:52 Pulse Ox 97 07/23/16 04:52 Intake & Output 07/22/16 07/23/16 07/23/16 18:59 06:59 18:59 Intake Total 336 660 200 Output Total 450 100 Balance 336 210 100 Weight 93.1 kg Intake: Oral 336 660 200 Output: Urine 450 100 Other: Voiding Method Toilet Bedside Commode # Voids 1 2 # Bowel Movements 1 - Labs CBC & Chem 7: 07/17/16 05:44 07/23/16 05:34 Labs: Abnormal Lab Results - Last 24 Hours (Table) 07/22/16 07/22/16 07/23/16 Range/Units 16:29 20:56 05:34 BUN 106 H* (7-17) mg/dL Creatinine 2.00 H (0.52-1.04) mg/dL Glucose 149 H (74-99) mg/dL POC Glucose (mg/dL) 190 H 244 H (75-99) mg/dL 07/23/16 Range/Units 05:51 BUN (7-17) mg/dL Creatinine (0.52-1.04) mg/dL Glucose (74-99) mg/dL POC Glucose (mg/dL) 145 H (75-99) mg/dL Assessment and Plan Plan: Assessment: #1. Nonoliguric acute kidney injury secondary to ischemic ATN secondary to diuresis. Renal function continues to improve. #2. Systolic CHF with ejection fraction of 40-45%. Compensated. #3. Chronic kidney disease stage IV secondary to diabetic kidney disease with baseline creatinine near 2. #4. Asthma exacerbation. #5. Disproportionately elevated BUN secondary to acute kidney injury as well as steroids. No evidence of GI bleed with hemoglobin at 12.9 as of 07/17. #6. Insulin-dependent diabetes mellitus. #7. Metabolic acidosis secondary to acute kidney injury. Improved. #8. Mild hyperkalemia secondary to metabolic acidosis and acute kidney injury. Resolved. Plan: Continue to hold off on diuretics for now. Encourage oral intake. Her appetite is good. Avoid nephrotoxic agents and hypotensive episodes. Maintain oral sodium bicarbonate 650 mg twice daily.
--- NOTE | 2016-07-23 11:26 | P.PN ---
Subjective Principal diagnosis: Acute congestive heart failure secondary to systolic dysfunction and atrial fibrillation with RVR. 81-year-old female patient, obese with known history of chronic atrial fibrillation, CHF with diastolic dysfunction, sick sinus syndrome with previous pacemaker insertion along with hypertension and hyperlipidemia and peripheral vascular disease who comes into the hospital because of worsening shortness of breath. She has had hospitalizations over the past few years , the most recent of which was in April 2016 when the patient was in the hospital for GI bleeding. During this current admission, the patient came in for increased shortness of breath. She was a 2 fibrillation with rapid ventricular response. She was transferred from [place] on a BiPAP and subsequently she was admitted to the intensive care unit for further evaluation and management. Currently the patient on a BiPAP at a pressure of 10 over 5 and FiO2 of 40%. She is also on a Cardizem drip at the rate of 10 mg an hour. Chest x-ray showed cardiomegaly with small right more than left sided pleural effusion and right basilar infiltrate and there is a new left midlung infiltration also noted. The patient was suspected to have acute CHF and the patient was started on IV Lasix 40 mg every 12 hours and she is producing adequate amount of urine output. Nevertheless, the possibility of a pneumonia cannot be completely excluded. She has no fever. No chills. No significant sputum production. No DVT or pulmonary embolism. No aspiration. She is a lifetime nonsmoker. She has been reported to have chronic persistent bronchial asthma maintained on Pulmicort Respules twice a day and Xopenex tablets treatments 4 times a day [id number] and daily prednisone alternating between 2.5 and 5 mg daily basis. Yesterday, the patient was seen in our office and her prednisone dose was increased up to 30 mg by mouth daily. Despite this change, no major improvement and the patient and up coming to the hospital for further evaluation and treatment. There is a minimal troponin leak with a first set being at 0.05, EKG showing atrial fibrillation with rapid ventricular response without any evidence of ST segment elevations. On 07/15/2016 the patient is being seen in follow-up. Overnight, the patient was treated with a combination of diuretics and antibiotics. Heart failure was suspected although possibility of bilateral pneumonia is also being considered nontender the patient has patchy pulmonary infiltrates in the left upper lobe and the right lower lobe. The patient is still on Lasix and she is receiving 40 mg IV every 12 hours. The patient was given Levaquin and added tigecycline based on today's chest x-ray that shows persistent consolidation/infiltration of the right lung base. Meanwhile, the patient's respiratory status is improved and the patient was taken off the BiPAP and currently is on 6 L of oxygen nasal cannula. Her pulse ox around 92% pH is less short of breath she is able to speak of. This is. She remains afebrile and there is no significant leukocytosis. Renal function is stable with a creatinine of 1.7. In terms of her atrial fibrillation, the patient was taken off the IV Cardizem and the patient was switched to verapamil oral 180 mg by mouth daily. Rate is under better control. IV Solu Medrol will also be tapered. She did develop some steroid-induced hyperglycemia. On 07/16/2016, the patient is being seen in [facility]U. The patient Is clinically improved however her chest x-ray still showing bilateral pulmonary infiltrates worse in the right lower lobe. I've treated this patient with a combination of tigecycline and Levaquin. She has bringing up some more sputum today and the sample will be sent for cultures. Blood cultures of been negative. The patient is currently off BiPAP. Earlier this morning she was on 6 L of oxygen by nasal cannula to maintain a saturation above 92%. The patient's also got treated with a combination of bronchodilators and steroids and her Lasix has been drop down to 40 mg every 24 hours knowing that there is has been a small rise in her creatinine. No other complaints otherwise for now. She is fully alert and awake and communicating. On 07/17/2016, the patient is being seen in follow-up. The patient was moved out of the intensive care unit yesterday. Of cover this patient with a combination of tigecycline and Levaquin for potential patchy bilateral pneumonia. On today's chest x-ray the patchy pneumonic infiltrates in the right lung is improving yet the patient still has some underlying CHF findings. The patient is of BiPAP. She is on 6 L of oxygen by nasal cannula and we haven't been able to wean her off the oxygen over the past 24 hours. She gets short of breath with minimal to moderate activity and she is very comfortable at rest. No fever. No chills. No other new complaints otherwise for now. She remains on IV Solu Medrol 40 g every 12 hours in addition to Xopenex nebulized treatments around the clock. The patient has developed prerenal azotemia with a creatinine coming up to 2.4 and she was taken off the Lasix. Patient was reevaluated on 07/18/2016, continues to do relatively well, breathing a lot easier, chest x-ray is showing definite improvement but continues to have mild bilateral pleural effusions, and a small amount of fluid in the fissure on the right side. Comparing to her initial presentation chest x -ray, this is a significant improvement, and again I believe the findings initially were all findings of congestive heart failure not pneumonia. Renal profile was noted, BUN is up to 131 creatinine is 2.62. Reevaluated today on 07/19/2016, patient continues to do better, breathing easier , less cough and less wheezing less shortness of breath. BUN is up to 150 creatinine is 2.80 and bicarb is 15. Her renal status is being closely monitored by the prison teacher on the case, and he recommended holding diuretics. Slow hydration, encourage oral intake, and avoid nephrotoxic agents. He also added sodium bicarb twice a day. Pulmonary-julio patient continues to do relatively well. At her last chest x-ray showed improvement in the congestive heart failure. Again I strongly doubt any underlying pneumonia. Reevaluated today on 07/20/2016, patient is not feeling as good today as she felt yesterday. She has generalized weakness, intermittent cough and wheezing. Feels much worse compared to how she felt in the last few days. Her electrolytes showed hyperkalemia, BUN is up to 159 and creatinine is 2.94, and her chest x-ray is showing significant improvement in her congestive heart failure. Had diuretics have been addressed, and now she is being followed by nephrology regarding her renal failure. Presently she is off all diuretics, and hoping that the patient's renal status will improve, and hoping that she doesn't go back into congestive heart failure again. IV access seems to be a bit of an issue, patient may need a PICC line placement. Reevaluated today on 07/21/2016, she is feeling much per her today compared to yesterday. Less weakness less shortness of breath. Her labs are showing some improvement, renal profile is a bit better and seems to be heading in the right direction. Her last chest x-ray yesterday showed no evidence of congestive heart failure. Patient is off diuretics, and she is being hydrated very cautiously. Again her renal functioning is improving, currently being followed closely by nephrology. Pulmonary-julio, no cough no wheezing, no shortness of breath at present. The patient is seen and evaluated again today on 07/22/2016 on the selective care unit. She is resting quite comfortably in bed. She is awake and alert in no acute distress. She states she is breathing easier today as compared to yesterday. She is maintaining good O2 saturations in the upper 90s on room air. His been afebrile. Her renal function continues to improve and her creatinine is 2.30. Reevaluated today on 07/23/2016, continues to do better and better every day, she has minimal cough, no shortness of breath, creatinine is improving and is down to 2.0. Her BUN is 106, patient is basically about her baseline from the renal perspective. Patient is being considered for possible rehab early next week. Chest x-ray was ordered to be done in a.m. Objective - Vital Signs Vital signs: Vital Signs Temp 96.9 F L 07/23/16 04:52 Pulse 88 07/23/16 08:16 Resp 16 07/23/16 04:52 BP 146/85 07/23/16 04:52 Pulse Ox 97 07/23/16 04:52 Intake & Output 07/22/16 07/23/16 07/23/16 18:59 06:59 18:59 Intake Total 336 660 200 Output Total 450 100 Balance 336 210 100 Weight 93.1 kg Intake: Oral 336 660 200 Output: Urine 450 100 Other: Voiding Method Toilet Bedside Commode # Voids 1 2 # Bowel Movements 1 - Exam GENERAL EXAM: Alert, comfortable in no apparent distress. HEAD: Normocephalic. EYES: Normal reaction of pupils, equal size. NOSE: Clear with pink turbinates. THROAT: No erythema or exudates. NECK: No masses, no significant JVD. CHEST: No chest wall deformity. LUNGS: Equal air entry with faint crackles in the bilateral posterior bases.. CVS: S1 and S2 normal with no audible murmurs, regular rhythm. ABDOMEN: No hepatosplenomegaly, normal bowel sounds, no guarding or rigidity. Extremities: There is trace peripheral edema. No clubbing, no cyanosis. Peripheral pulses are intact. - Labs CBC & Chem 7: 07/17/16 05:44 07/23/16 05:34 Labs: Abnormal Lab Results - Last 24 Hours (Table) 07/22/16 07/22/16 07/23/16 Range/Units 16:29 20:56 05:34 BUN 106 H* (7-17) mg/dL Creatinine 2.00 H (0.52-1.04) mg/dL Glucose 149 H (74-99) mg/dL POC Glucose (mg/dL) 190 H 244 H (75-99) mg/dL 07/23/16 Range/Units 05:51 BUN (7-17) mg/dL Creatinine (0.52-1.04) mg/dL Glucose (74-99) mg/dL POC Glucose (mg/dL) 145 H (75-99) mg/dL Assessment and Plan Plan: 1 acute shortness of breath secondary to an acute CHF exacerbation. Most likely systolic in nature. 2 acute hypoxic respiratory failure, currently off BiPAP and the patient is on high flow oxygen 6 L/m nasal cannula 3 acute asthma exacerbation 4 morbid obesity 5 chronic renal failure, with an acute rise in the creatinine secondary to diuresis 6 atrial fibrillation fibrillation with rapid ventricular response , recovered and the patient was switched to oral verapamil, rate controlled 7 mild troponin leak without evidence of any significant EKG changes, patient is free of any angina 8 permanent pacemaker insertion for sick sinus syndrome 9 diabetes mellitus 10 severe persistent bronchial asthma at baseline 11 GI bleed attributed to antral ulceration and the patient has been off anticoagulation for now 12 peripheral vascular disease 13 osteoarthritis 14 hypertension Recommendation: Continue present treatment plan, x-ray was ordered to be done in a.m., discharge planning to a rehab facility soon, Lasix may have to be restarted depending on her pulmonary symptoms. So far the patient is doing well off diuretics. Time with Patient: Less than 30
[2016-07-23 12:02] LABS: Glucose,Whole Blood 161 mg/dL (75-99)
[2016-07-23 17:27] LABS: Glucose,Whole Blood 238 mg/dL (75-99)
--- NOTE | 2016-07-23 18:19 | P.PN ---
Subjective 81Old female with multiple medical problems comes into the hospital with the difficulty breathing secondary to an acute exacerbation of CHF. Patient was seen by another physician and seen the patient today in cross coverage. A thorough breathing is significantly improved denies having chest pain nausea vomiting headaches blurry vision abdominal pain. Patient's only complaint is that she has poor strength today. Objective - Vital Signs Vital signs: Vital Signs Temp 98.4 F 07/23/16 11:40 Pulse 90 07/23/16 16:37 Resp 18 07/23/16 11:40 BP 157/92 07/23/16 11:40 Pulse Ox 98 07/23/16 11:40 Intake & Output 07/22/16 07/23/16 07/23/16 18:59 06:59 18:59 Intake Total 336 660 200 Output Total 450 100 Balance 336 210 100 Weight 93.1 kg Intake: Oral 336 660 200 Output: Urine 450 100 Other: Voiding Method Toilet Bedside Commode # Voids 1 2 # Bowel Movements 1 - Exam Gen. appearance alert oriented 3 Neck is supple no JVD Lungs good air movement clear to auscultation no rhonchi or wheezing appreciated today. Heart S1-S2 heard regular rate and rhythm no murmurs the patient a Skin diffuse ecchymosis all over Abdomen soft nontender no organomegaly Neuro no focal motor or sensory deficits noted. - Labs CBC & Chem 7: 07/17/16 05:44 07/23/16 05:34 Labs: Abnormal Lab Results - Last 24 Hours (Table) 07/22/16 07/23/16 07/23/16 Range/Units 20:56 05:34 05:51 BUN 106 H* (7-17) mg/dL Creatinine 2.00 H (0.52-1.04) mg/dL Glucose 149 H (74-99) mg/dL POC Glucose (mg/dL) 244 H 145 H (75-99) mg/dL 07/23/16 07/23/16 Range/Units 11:50 16:49 BUN (7-17) mg/dL Creatinine (0.52-1.04) mg/dL Glucose (74-99) mg/dL POC Glucose (mg/dL) 161 H 238 H (75-99) mg/dL Assessment and Plan Plan: Murmur 1 acute exacerbation of systolic heart failure 2 severe persistent bronchial asthma #3 morbid obesity 4.dyslipidemia #5 history of hypertension. #6 deconditioning #History of sick sinus syndrome #7 acute on chronic kidney disease stage III mild uremia nonsystematic #8 acute hypoxic respiratory failure secondary to above plan Continue ongoing care patient is maintained on diuretics at this time. Patient will likely be placed on Monday. For rehab. Continue telemetry monitoring at this time.
[2016-07-23] MEDS: INSULIN GLARGINE 100 UNIT/ML 10 ML VIAL SQ SCH (19:57)
[2016-07-23] MEDS: VERAPAMIL SR 180 MG TABLET.ER PO SCH (19:59)
[2016-07-23] MEDS: MONTELUKAST 10 MG TAB PO SCH (19:59)
[2016-07-23 20:52] LABS: Glucose,Whole Blood 250 mg/dL (75-99)
[2016-07-24 06:34] LABS: Calcium 8.9 mg/dL (8.4-10.2); Potassium 5.1 mmol/L (3.5-5.1)
[2016-07-24 06:36] LABS: Glucose,Whole Blood 122 mg/dL (75-99)
[2016-07-24] MEDS: IPRATROPIUM 0.5 MG/2.5 ML NEBU INHALATION SCH ×4 (08:11→20:31)
[2016-07-24] MEDS: LEVALBUTEROL NEB (CONC) 1.25 MG/0.5 ML AMP INHALATION SCH ×4 (08:11→20:31)
[2016-07-24] MEDS: INSULIN LISPRO (humaLOG) 300 UNIT/3 ML VIAL SQ SCH ×4 (08:36→22:05)
--- NOTE | 2016-07-24 09:07 | XR ---
EXAMINATION TYPE: XR chest 1V portable DATE OF EXAM: 07/24/2016 7:03 AM COMPARISON: 07/20/2016 INDICATION: CHF, follow-up TECHNIQUE: Single frontal view of the chest is obtained. FINDINGS: The heart size is normal. The pulmonary vasculature is normal. Small bilateral pleural effusions are present. This may be developing on the left. Electronic device overlies left chest. IMPRESSION: 1. Small bilateral pleural effusions, increasing on the left.
--- NOTE | 2016-07-24 09:10 | P.PN ---
Subjective Patient is seen in follow-up for acute kidney injury on chronic kidney disease. 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 Renal function continues to improve with creatinine down to 1.9 today.. Patient's currently being treated for asthma exacerbation. She is off all diuretics and IV fluids have also been discontinued. She denies any vomiting or diarrhea. Dyspnea is improving. Admits to good urine output. Vital signs are stable. General: The patient appeared well nourished and normally developed. HEENT: Head exam is unremarkable. Neck is without jugular venous distension. LUNGS: Lungs are clear to auscultation and percussion. Breath sounds decreased. HEART: Rate and Rhythm are regular. First and second heart sounds normal. No murmurs, rubs or gallops. ABDOMEN: Abdominal exam reveals normal bowel sounds. Non-tender and non- distended. No evidence of peritonitis. EXTREMITITES: No clubbing, cyanosis, or edema. Objective - Vital Signs Vital signs: Vital Signs Temp 97.1 F L 07/24/16 04:00 Pulse 86 07/24/16 08:30 Resp 17 07/24/16 04:00 BP 149/82 07/24/16 04:00 Pulse Ox 96 07/24/16 04:00 Intake & Output 07/23/16 07/24/16 07/24/16 18:59 06:59 18:59 Intake Total 1400 240 Output Total 100 300 Balance 1300 -300 240 Weight 92.4 kg Intake: Oral 1400 240 Output: Urine 100 300 Other: Voiding Method Toilet Bedside Commode # Voids 0 # Bowel Movements 1 - Labs CBC & Chem 7: 07/17/16 05:44 07/24/16 05:55 Labs: Abnormal Lab Results - Last 24 Hours (Table) 07/23/16 07/23/16 07/23/16 Range/Units 11:50 16:49 20:34 BUN (7-17) mg/dL Creatinine (0.52-1.04) mg/dL Glucose (74-99) mg/dL POC Glucose (mg/dL) 161 H 238 H 250 H (75-99) mg/dL 07/24/16 07/24/16 Range/Units 05:55 06:31 BUN 96 H* (7-17) mg/dL Creatinine 1.90 H (0.52-1.04) mg/dL Glucose 128 H (74-99) mg/dL POC Glucose (mg/dL) 122 H (75-99) mg/dL Assessment and Plan Plan: Assessment: #1. Nonoliguric acute kidney injury secondary to ischemic ATN secondary to diuresis. Renal function continues to improve. #2. Systolic CHF with ejection fraction of 40-45%. Compensated. #3. Chronic kidney disease stage IV secondary to diabetic kidney disease with baseline creatinine near 2. #4. Asthma exacerbation. #5. Disproportionately elevated BUN secondary to acute kidney injury as well as steroids. No evidence of GI bleed with hemoglobin at 12.9 as of 07/17. #6. Insulin-dependent diabetes mellitus. #7. Metabolic acidosis secondary to acute kidney injury. Improved. #8. Mild hyperkalemia secondary to metabolic acidosis and acute kidney injury. Resolved. Plan: Continue to hold off on diuretics for now. Encourage oral intake. Her appetite is good. Avoid nephrotoxic agents and hypotensive episodes. Maintain oral sodium bicarbonate 650 mg twice daily. Awaits rehab placement.
[2016-07-24] MEDS: ALLOPURINOL 100 MG TAB PO SCH (09:53)
[2016-07-24] MEDS: SODIUM BICARBONATE TAB 650 MG TAB PO SCH ×2 (09:53→20:54)
[2016-07-24] MEDS: METOPROLOL TARTRATE 25 MG TAB PO SCH ×2 (09:53→20:54)
[2016-07-24] MEDS: PANTOPRAZOLE 40 MG TABLET PO SCH (09:54)
[2016-07-24] MEDS: PREGABALIN 75 MG CAP PO SCH ×2 (09:54→20:54)
[2016-07-24] MEDS: predniSONE 20 MG TAB PO SCH (09:55)
[2016-07-24] MEDS: ATORVASTATIN 40 MG TAB PO SCH (09:55)
[2016-07-24] MEDS ORDERED: FUROSEMIDE 40 MG TAB PO STA (10:54)
[2016-07-24 12:02] LABS: Glucose,Whole Blood 194 mg/dL (75-99)
--- NOTE | 2016-07-24 12:32 | P.PN ---
Subjective Principal diagnosis: Acute congestive heart failure secondary to systolic dysfunction and atrial fibrillation with RVR. 81-year-old female patient, obese with known history of chronic atrial fibrillation, CHF with diastolic dysfunction, sick sinus syndrome with previous pacemaker insertion along with hypertension and hyperlipidemia and peripheral vascular disease who comes into the hospital because of worsening shortness of breath. She has had hospitalizations over the past few years , the most recent of which was in April 2016 when the patient was in the hospital for GI bleeding. During this current admission, the patient came in for increased shortness of breath. She was a 2 fibrillation with rapid ventricular response. She was transferred from [place] on a BiPAP and subsequently she was admitted to the intensive care unit for further evaluation and management. Currently the patient on a BiPAP at a pressure of 10 over 5 and FiO2 of 40%. She is also on a Cardizem drip at the rate of 10 mg an hour. Chest x-ray showed cardiomegaly with small right more than left sided pleural effusion and right basilar infiltrate and there is a new left midlung infiltration also noted. The patient was suspected to have acute CHF and the patient was started on IV Lasix 40 mg every 12 hours and she is producing adequate amount of urine output. Nevertheless, the possibility of a pneumonia cannot be completely excluded. She has no fever. No chills. No significant sputum production. No DVT or pulmonary embolism. No aspiration. She is a lifetime nonsmoker. She has been reported to have chronic persistent bronchial asthma maintained on Pulmicort Respules twice a day and Xopenex tablets treatments 4 times a day [id number] and daily prednisone alternating between 2.5 and 5 mg daily basis. Yesterday, the patient was seen in our office and her prednisone dose was increased up to 30 mg by mouth daily. Despite this change, no major improvement and the patient and up coming to the hospital for further evaluation and treatment. There is a minimal troponin leak with a first set being at 0.05, EKG showing atrial fibrillation with rapid ventricular response without any evidence of ST segment elevations. On 07/15/2016 the patient is being seen in follow-up. Overnight, the patient was treated with a combination of diuretics and antibiotics. Heart failure was suspected although possibility of bilateral pneumonia is also being considered nontender the patient has patchy pulmonary infiltrates in the left upper lobe and the right lower lobe. The patient is still on Lasix and she is receiving 40 mg IV every 12 hours. The patient was given Levaquin and added tigecycline based on today's chest x-ray that shows persistent consolidation/infiltration of the right lung base. Meanwhile, the patient's respiratory status is improved and the patient was taken off the BiPAP and currently is on 6 L of oxygen nasal cannula. Her pulse ox around 92% pH is less short of breath she is able to speak of. This is. She remains afebrile and there is no significant leukocytosis. Renal function is stable with a creatinine of 1.7. In terms of her atrial fibrillation, the patient was taken off the IV Cardizem and the patient was switched to verapamil oral 180 mg by mouth daily. Rate is under better control. IV Solu Medrol will also be tapered. She did develop some steroid-induced hyperglycemia. On 07/16/2016, the patient is being seen in [facility]. The patient Is clinically improved however her chest x-ray still showing bilateral pulmonary infiltrates worse in the right lower lobe. I've treated this patient with a combination of tigecycline and Levaquin. She has bringing up some more sputum today and the sample will be sent for cultures. Blood cultures of been negative. The patient is currently off BiPAP. Earlier this morning she was on 6 L of oxygen by nasal cannula to maintain a saturation above 92%. The patient's also got treated with a combination of bronchodilators and steroids and her Lasix has been drop down to 40 mg every 24 hours knowing that there is has been a small rise in her creatinine. No other complaints otherwise for now. She is fully alert and awake and communicating. On 07/17/2016, the patient is being seen in follow-up. The patient was moved out of the intensive care unit yesterday. Of cover this patient with a combination of tigecycline and Levaquin for potential patchy bilateral pneumonia. On today's chest x-ray the patchy pneumonic infiltrates in the right lung is improving yet the patient still has some underlying CHF findings. The patient is of BiPAP. She is on 6 L of oxygen by nasal cannula and we haven't been able to wean her off the oxygen over the past 24 hours. She gets short of breath with minimal to moderate activity and she is very comfortable at rest. No fever. No chills. No other new complaints otherwise for now. She remains on IV Solu Medrol 40 g every 12 hours in addition to Xopenex nebulized treatments around the clock. The patient has developed prerenal azotemia with a creatinine coming up to 2.4 and she was taken off the Lasix. Patient was reevaluated on 07/18/2016, continues to do relatively well, breathing a lot easier, chest x-ray is showing definite improvement but continues to have mild bilateral pleural effusions, and a small amount of fluid in the fissure on the right side. Comparing to her initial presentation chest x -ray, this is a significant improvement, and again I believe the findings initially were all findings of congestive heart failure not pneumonia. Renal profile was noted, BUN is up to 131 creatinine is 2.62. Reevaluated today on 07/19/2016, patient continues to do better, breathing easier , less cough and less wheezing less shortness of breath. BUN is up to 150 creatinine is 2.80 and bicarb is 15. Her renal status is being closely monitored by the ep technologist on the case, and he recommended holding diuretics. Slow hydration, encourage oral intake, and avoid nephrotoxic agents. He also added sodium bicarb twice a day. Pulmonary-julio patient continues to do relatively well. At her last chest x-ray showed improvement in the congestive heart failure. Again I strongly doubt any underlying pneumonia. Reevaluated today on 07/20/2016, patient is not feeling as good today as she felt yesterday. She has generalized weakness, intermittent cough and wheezing. Feels much worse compared to how she felt in the last few days. Her electrolytes showed hyperkalemia, BUN is up to 159 and creatinine is 2.94, and her chest x-ray is showing significant improvement in her congestive heart failure. Had diuretics have been addressed, and now she is being followed by nephrology regarding her renal failure. Presently she is off all diuretics, and hoping that the patient's renal status will improve, and hoping that she doesn't go back into congestive heart failure again. IV access seems to be a bit of an issue, patient may need a PICC line placement. Reevaluated today on 07/21/2016, she is feeling much per her today compared to yesterday. Less weakness less shortness of breath. Her labs are showing some improvement, renal profile is a bit better and seems to be heading in the right direction. Her last chest x-ray yesterday showed no evidence of congestive heart failure. Patient is off diuretics, and she is being hydrated very cautiously. Again her renal functioning is improving, currently being followed closely by nephrology. Pulmonary-julio, no cough no wheezing, no shortness of breath at present. The patient is seen and evaluated again today on 07/22/2016 on the selective care unit. She is resting quite comfortably in bed. She is awake and alert in no acute distress. She states she is breathing easier today as compared to yesterday. She is maintaining good O2 saturations in the upper 90s on room air. His been afebrile. Her renal function continues to improve and her creatinine is 2.30. Reevaluated today on 07/23/2016, continues to do better and better every day, she has minimal cough, no shortness of breath, creatinine is improving and is down to 2.0. Her BUN is 106, patient is basically about her baseline from the renal perspective. Patient is being considered for possible rehab early next week. Chest x-ray was ordered to be done in a.m. Reevaluated today on 07/24/2016, patient is doing well except for a bit of a cough. Chest x-ray showed small bilateral pleural effusions, hence I will give the patient 1 dose of Lasix today orally 40 mg 1. I believe the patient may need to be placed on 40 mg of Lasix at least couple or 3 times per week. Otherwise she will develop congestive heart failure again. Renal profile is better, BUN is down to 96 creatinine is down to 1.90 and I believe that's about her baseline. Clinically the patient is doing much better. Awaiting placement in a rehab facility probably tomorrow. Objective - Vital Signs Vital signs: Vital Signs Temp 97.1 F L 07/24/16 04:00 Pulse 84 07/24/16 12:08 Resp 17 07/24/16 04:00 BP 149/82 07/24/16 04:00 Pulse Ox 96 07/24/16 04:00 Intake & Output 07/23/16 07/24/16 07/24/16 18:59 06:59 18:59 Intake Total 1400 240 Output Total 100 300 Balance 1300 -300 240 Weight 92.4 kg Intake: Oral 1400 240 Output: Urine 100 300 Other: Voiding Method Toilet Bedside Commode # Voids 0 # Bowel Movements 1 - Exam GENERAL EXAM: Alert, comfortable in no apparent distress. HEAD: Normocephalic. EYES: Normal reaction of pupils, equal size. NOSE: Clear with pink turbinates. THROAT: No erythema or exudates. NECK: No masses, no significant JVD. CHEST: No chest wall deformity. LUNGS: Equal air entry with faint crackles in the bilateral posterior bases.. CVS: S1 and S2 normal with no audible murmurs, regular rhythm. ABDOMEN: No hepatosplenomegaly, normal bowel sounds, no guarding or rigidity. Extremities: There is trace peripheral edema. No clubbing, no cyanosis. Peripheral pulses are intact. - Labs CBC & Chem 7: 07/17/16 05:44 07/24/16 05:55 Labs: Abnormal Lab Results - Last 24 Hours (Table) 07/23/16 07/23/16 07/24/16 Range/Units 16:49 20:34 05:55 BUN 96 H* (7-17) mg/dL Creatinine 1.90 H (0.52-1.04) mg/dL Glucose 128 H (74-99) mg/dL POC Glucose (mg/dL) 238 H 250 H (75-99) mg/dL 07/24/16 07/24/16 Range/Units 06:31 11:57 BUN (7-17) mg/dL Creatinine (0.52-1.04) mg/dL Glucose (74-99) mg/dL POC Glucose (mg/dL) 122 H 194 H (75-99) mg/dL Assessment and Plan Plan: 1 acute shortness of breath secondary to an acute CHF exacerbation. Most likely systolic in nature. 2 acute hypoxic respiratory failure, required BiPAP initially and high flow O2. Presently off oxygen. 3 acute asthma exacerbation 4 morbid obesity 5 chronic renal failure, with an acute rise in the creatinine secondary to diuresis. Patient would eventually need to be on diuretics, however the dose will likely be 40 mg of Lasix every other day or no more than twice a week. 6 atrial fibrillation fibrillation with rapid ventricular response , recovered and the patient was switched to oral verapamil, rate controlled 7 mild troponin leak without evidence of any significant EKG changes, patient is free of any angina 8 permanent pacemaker insertion for sick sinus syndrome 9 diabetes mellitus 10 severe persistent bronchial asthma at baseline 11 GI bleed attributed to antral ulceration and the patient has been off anticoagulation for now 12 peripheral vascular disease 13 osteoarthritis 14 hypertension Recommendation: Agree with discharge planning tomorrow, however the Lasix should be ordered on outpatient basis, and the patient needs to monitor her daily weights. I believe she would likely need Lasix 40 mg Mondays and Fridays. And her renal profile will be monitored closely on outpatient basis. Patient is to monitor her weights on a daily basis. And based on her weight gain or weight loss, the Lasix dose will be adjusted accordingly. Time with Patient: Less than 30
--- NOTE | 2016-07-24 16:03 | P.PN ---
Subjective 81Old female with multiple medical problems comes into the hospital with the difficulty breathing secondary to an acute exacerbation of CHF. Patient was seen by another physician and seen the patient today in cross coverage. A thorough breathing is significantly improved denies having chest pain nausea vomiting headaches blurry vision abdominal pain. Patient's only complaint is that she has poor strength today. 2016 Patient is doing well denies having chest pain difficulty breathing nausea vomiting or diarrhea at this time. He uses state that she is weak. Objective - Vital Signs Vital signs: Vital Signs Temp 97.0 F L 07/24/16 12:15 Pulse 108 H 07/24/16 12:15 Resp 18 07/24/16 12:15 BP 139/97 07/24/16 12:15 Pulse Ox 96 07/24/16 12:15 Intake & Output 07/23/16 07/24/16 07/24/16 18:59 06:59 18:59 Intake Total 1400 1440 Output Total 100 300 Balance 1300 -300 1440 Weight 92.4 kg Intake: Oral 1400 1440 Output: Urine 100 300 Other: Voiding Method Toilet Bedside Commode # Voids 0 # Bowel Movements 1 - Exam Gen. appearance alert oriented 3 Neck is supple no JVD Lungs good air movement clear to auscultation no rhonchi or wheezing appreciated today. Heart S1-S2 heard regular rate and rhythm no murmurs the patient a Skin diffuse ecchymosis all over Abdomen soft nontender no organomegaly Neuro no focal motor or sensory deficits noted. - Labs CBC & Chem 7: 07/17/16 05:44 07/24/16 05:55 Labs: Abnormal Lab Results - Last 24 Hours (Table) 07/23/16 07/23/16 07/24/16 Range/Units 16:49 20:34 05:55 BUN 96 H* (7-17) mg/dL Creatinine 1.90 H (0.52-1.04) mg/dL Glucose 128 H (74-99) mg/dL POC Glucose (mg/dL) 238 H 250 H (75-99) mg/dL 07/24/16 07/24/16 Range/Units 06:31 11:57 BUN (7-17) mg/dL Creatinine (0.52-1.04) mg/dL Glucose (74-99) mg/dL POC Glucose (mg/dL) 122 H 194 H (75-99) mg/dL Assessment and Plan Plan: Murmur 1 acute exacerbation of systolic heart failure 2 severe persistent bronchial asthma #3 morbid obesity 4.dyslipidemia #5 history of hypertension. #6 deconditioning #History of sick sinus syndrome #7 acute on chronic kidney disease stage III mild uremia nonsystematic #8 acute hypoxic respiratory failure secondary to above plan Plan Renal function appears to be improved defer management of diuretics to nephrology at this time. We'll repeat labs in the a.m. Will likely be discharged to [place] in the a.m.
[2016-07-24 16:57] LABS: Glucose,Whole Blood 225 mg/dL (75-99)
[2016-07-24] MEDS: LEVOFLOXACIN 250 MG TAB PO SCH (17:44)
[2016-07-24] MEDS: INSULIN GLARGINE 100 UNIT/ML 10 ML VIAL SQ SCH (20:53)
[2016-07-24] MEDS: MONTELUKAST 10 MG TAB PO SCH (20:54)
[2016-07-24] MEDS: VERAPAMIL SR 180 MG TABLET.ER PO SCH (20:54)
[2016-07-24 22:06] LABS: Glucose,Whole Blood 246 mg/dL (75-99)
[2016-07-25 05:15] VITALS: RESP 18
[2016-07-25 06:27] LABS: Glucose,Whole Blood 141 mg/dL (75-99)
[2016-07-25] MEDS: INSULIN LISPRO (humaLOG) 300 UNIT/3 ML VIAL SQ SCH ×2 (07:03→12:28)
[2016-07-25 07:16] LABS: Anisocytosis Slight; CH 30.6; CHCM 32.3; HCT 36.4 % (34.0-46.0); HDW 2.24; HGB 11.5 gm/dL (11.4-16.0); Large Platelets Flag Marked; MCHC 31.6 g/dL (31.0-37.0); MCV 95.1 fL (80.0-100.0); Mean Platelet Volume 14.1; RBC 3.82 m/uL (3.80-5.40); RDW 16.3 % (11.5-15.5); WBC 17.2 k/uL (3.8-10.6); WBC (Perox) 19.15
[2016-07-25 07:21] LABS: Calcium 8.6 mg/dL (8.4-10.2); Magnesium 1.6 mg/dL (1.6-2.3); Potassium 4.8 mmol/L (3.5-5.1); Total Bilirubin 0.8 mg/dL (0.2-1.3); Total Protein 4.8 g/dL (6.3-8.2)
[2016-07-25 07:59] LABS: Add Differential Manual Differential
[2016-07-25 08:01] LABS: Nucleated Red Blood Cells 0 /100 WBC (0-0); Total Cells Counted 100
[2016-07-25 08:02] LABS: Large Platelets Present; Manual Review Performed
[2016-07-25 08:06] LABS: Polychromasia Present
[2016-07-25] MEDS: LEVALBUTEROL NEB (CONC) 1.25 MG/0.5 ML AMP INHALATION SCH ×3 (08:09→15:40)
[2016-07-25] MEDS: IPRATROPIUM 0.5 MG/2.5 ML NEBU INHALATION SCH ×3 (08:09→15:40)
[2016-07-25] MEDS ORDERED: predniSONE 20 MG TAB PO SCH (09:00)
[2016-07-25] MEDS: PREGABALIN 75 MG CAP PO SCH (09:32)
[2016-07-25] MEDS: SODIUM BICARBONATE TAB 650 MG TAB PO SCH (09:32)
[2016-07-25] MEDS: PANTOPRAZOLE 40 MG TABLET PO SCH (09:32)
[2016-07-25] MEDS: ALLOPURINOL 100 MG TAB PO SCH (09:32)
[2016-07-25] MEDS: METOPROLOL TARTRATE 25 MG TAB PO SCH (09:32)
[2016-07-25] MEDS: ATORVASTATIN 40 MG TAB PO SCH (09:33)
[2016-07-25 11:44] LABS: Glucose,Whole Blood 218 mg/dL (75-99)
[2016-07-25] MEDS ORDERED: FUROSEMIDE 20 MG TAB PO STA (12:46)
[2016-07-25 13:28] VITALS: BP 142/79; TEMP 96.7
--- NOTE | 2016-07-25 13:56 | P.PN ---
Subjective Progress note dated 07/25/2016 Patient is doing recently well. Hopefully discharge home today. She is not sure though. She does have a history of CHF. Bilateral pleural effusions. Responded nicely to diuretic therapy. Her breathing is much improved. Sitting up at the bedside eating a salad. No chest pain no chest discomfort. No fever no chills. Not coughing up any phlegm. Objective - Vital Signs Vital signs: Vital Signs Temp 96.7 F L 07/25/16 12:00 Pulse 115 H 07/25/16 12:00 Resp 18 07/25/16 12:00 BP 142/79 07/25/16 12:00 Pulse Ox 99 07/25/16 12:00 Intake & Output 07/24/16 07/25/16 07/25/16 18:59 06:59 18:59 Intake Total 1440 360 780 Output Total 650 Balance 1440 -290 780 Weight 92.2 kg Intake: Oral 1440 360 780 Output: Urine 650 Other: Voiding Method Toilet Bedside Commode # Voids 450 1 - Exam No acute distress, oriented 3. HEENT examination is grossly unremarkable. Mucous membranes are moist. No oral lesions. Supple. Full range of motion. No adenopathy or thyromegaly. Neck veins are flat. Cardiovascular examination reveals distant heart sounds. S1 and S2 normal. Lungs reveal few scattered crackles. Breath sounds equal. No rhonchi. No wheezes. Abdomen soft bowel sounds are heard. Extremities are intact. No peripheral edema. No cyanosis. - Labs CBC & Chem 7: 07/25/16 06:37 07/25/16 06:29 Labs: Abnormal Lab Results - Last 24 Hours (Table) 07/24/16 07/24/16 07/25/16 Range/Units 16:48 21:34 06:22 WBC (3.8-10.6) k/uL RDW (11.5-15.5) % Plt Count (150-450) k/uL Neutrophils # (Manual) (1.3-7.7) k/uL Lymphocytes # (Manual) (1.0-4.8) k/uL BUN (7-17) mg/dL Creatinine (0.52-1.04) mg/dL Glucose (74-99) mg/dL POC Glucose (mg/dL) 225 H 246 H 141 H (75-99) mg/dL Alkaline Phosphatase (38-126) U/L Total Protein (6.3-8.2) g/dL Albumin (3.5-5.0) g/dL 07/25/16 07/25/16 07/25/16 Range/Units 06:29 06:37 11:41 WBC 17.2 H (3.8-10.6) k/uL RDW 16.3 H (11.5-15.5) % Plt Count 131 L (150-450) k/uL Neutrophils # (Manual) 15.7 H (1.3-7.7) k/uL Lymphocytes # (Manual) 0.7 L (1.0-4.8) k/uL BUN 87 H* (7-17) mg/dL Creatinine 1.96 H (0.52-1.04) mg/dL Glucose 136 H (74-99) mg/dL POC Glucose (mg/dL) 218 H (75-99) mg/dL Alkaline Phosphatase 133 H (38-126) U/L Total Protein 4.8 L (6.3-8.2) g/dL Albumin 2.4 L (3.5-5.0) g/dL Assessment and Plan (1) Acute respiratory failure Status: Acute (2) Chronic a-fib Status: Acute (3) Congestive heart failure Status: Acute (4) Pacemaker Status: Acute (5) Systolic congestive heart failure Status: Acute (6) Pacemaker Status: Acute (7) Diabetes mellitus Status: Chronic Plan: Plan Patient's doing well. Possible discharge today. No additional recommendations are made. We'll see the patient in the outpatient setting. She follows follows up with us anyway. Time with Patient: Less than 30
--- NOTE | 2016-07-25 13:57 | PN ---
Patient is seen for followup for acute kidney injury on top of chronic kidney disease. Renal function has improved with serum creatinine now at about 1.9 and estimated GFR at about 25 mL/min. On examination, patient is comfortable. Blood pressure is 143/88, heart rate 103 per minute. Patient is afebrile. Examination of the heart, S1 and S2. Examination of the lungs, bilateral breath sounds are heard. No crackles or wheezing is heard. Abdomen is soft, nontender, obese. Lower extremities shows edema 1+ bilaterally. Chronic skin changes are noted. Labs show sodium 138, potassium 4.8, BUN 87, serum creatinine 1.96. Hemoglobin 11.5 g/dL. ASSESSMENT: 1. Acute kidney injury, prerenal, currently improved, off of IV fluids but received oral dose of Lasix yesterday. I will give her another dose of Lasix today. 2. Volume overload on initial admission improved with diuresis, currently fairly stable with clear lung blake on auscultation, but some lower extremity edema noted in the lower extremities, will maintain patient on 40 mg of Lasix p.o. daily upon discharge. Patient's daughter will be monitoring her weight and volume status to either decrease or increase her Lasix. 3. 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 Baseline creatinine at about 2. 4. Asthma exacerbation. 5. Cardiomyopathy, ejection fraction of 40% to 45%. PLAN: Lasix p.o. x1 today. Patient is stable for discharge. Follow up as outpatient in about 1 to 2 weeks and maintain 40 mg of Lasix p.o. daily as outpatient.
[2016-07-25 14:09] VITALS: BMI 34.9
--- NOTE | 2016-07-25 14:31 | P.DS ---
Providers Date of admission: 07/14/16 12:31 Attending physician: Gustavo Mejia Consults: 07/17/16 10:47 Consult Physician Routine Consulting Provider: Pavel Mendoza Consult Reason/Comments: elevated BUN/Creatinine Do you want consulting provider notified?: Already Contacted Primary care physician: [facility] Hospital Course: 81Old female with multiple medical problems comes into the hospital with the difficulty breathing secondary to an acute exacerbation of CHF. Patient was seen by another physician and seen the patient today in cross coverage. A thorough breathing is significantly improved denies having chest pain nausea vomiting headaches blurry vision abdominal pain. Patient's only complaint is that she has poor strength today. 5 2016 Patient is doing well denies having chest pain difficulty breathing nausea vomiting or diarrhea at this time. He uses state that she is weak. Extremities without 17 Patient is doing well. Denies having any chest pain and difficulty breathing nausea vomiting or diarrhea. Is able to answer questions appropriately. Patient is anxious to get to rehab. - Exam Gen. appearance alert oriented 3 Neck is supple no JVD Lungs good air movement clear to auscultation no rhonchi or wheezing appreciated today. Heart S1-S2 heard regular rate and rhythm no murmurs the patient a Skin diffuse ecchymosis all over Abdomen soft nontender no organomegaly Neuro no focal motor or sensory deficits noted. Assessment and Plan Plan: #1 acute exacerbation of systolic heart failure 2 severe persistent bronchial asthma with acute tracheobronchitis on admission. #3 morbid obesity 4.dyslipidemia #5 history of hypertension. #6 deconditioning #History of sick sinus syndrome #7 acute on chronic kidney disease stage III mild uremia, asymptomatic and improved on discharge. #8 acute hypoxic respiratory failure secondary to above Patient has improved. Patient is discharged to a [facility] for [facility]hab and [facility]L support. Patient Condition at Discharge: Serious Plan - Discharge Summary New Discharge Prescriptions: Levofloxacin [Levaquin] 250 mg PO Q48H #4 tab methylPREDNISolone Dose Pack [Medrol Dose Pack] 4 mg PO DIRECTED #21 package Discharge Medication List Montelukast [Singulair] 10 mg PO HS 09/29/13 [History] Budesonide [Pulmicort] 0.5 mg INHALATION RT-BID 06/30/14 [History] Metoprolol Tartrate [Lopressor] 50 mg PO BID tab 07/10/14 [Rx] Calcitriol 0.25 mcg PO DAILY 08/01/14 [History] Formoterol Fumarate [Perforomist] 20 mcg INHALATION RT-BID 08/01/14 [History] Insulin Glargine [Lantus] 10 unit SQ HS 08/01/14 [History] Insulin Aspart [NovoLOG] See Protocol SQ ACHS 05/04/16 [History] Pregabalin [Lyrica] 75 mg PO BID 05/04/16 [History] Verapamil HCl [Verapamil ER] 180 mg PO HS 05/04/16 [History] Ferrous Sulfate [Feosol] 325 mg PO DAILY #30 tab 05/18/16 [Rx] Allopurinol [Zyloprim] 100 mg PO DAILY 07/14/16 [History] Docusate [Colace] 100 mg PO DAILY PRN 07/14/16 [History] Ipratropium Nebulized [Atrovent Nebulized] 0.5 mg INHALATION RT-Q6H PRN [History] Levalbuterol HCl [Xopenex Nebulized] 0.63 mg INHALATION RT-Q4H PRN 07/14/16 [ History] Pantoprazole Sodium [Protonix] 40 mg PO DAILY 07/14/16 [History] predniSONE See Taper PO DAILY 07/14/16 [History] Atorvastatin [Lipitor] 40 mg PO DAILY tab 07/25/16 [Rx] Docusate [Colace] 100 mg PO DAILY PRN #0 cap 07/25/16 [Rx] Furosemide [Lasix] 40 mg PO DAILY tab 07/25/16 [Rx] Levofloxacin [Levaquin] 250 mg PO Q48H #4 tab 07/25/16 [Rx] Nitroglycerin Sl Tabs [Nitrostat] 0.4 mg SUBLINGUAL Q5M PRN #0 tab 07/25/16 [Rx] Sodium Bicarbonate Tab 650 mg PO BID tab 07/25/16 [Rx] Verapamil Sr [Isoptin Sr] 180 mg PO DAILY@2100 tablet.er 07/25/16 [Rx] methylPREDNISolone Dose Pack [Medrol Dose Pack] 4 mg PO DIRECTED #21 package 07/25/16 [Rx] Follow up Appointment(s)/Referral(s): Sharmila Liao MD [STAFF PHYSICIAN] - 1 Week Wilfred Turner MD [Primary Care Provider] - 1-2 days Discharge Disposition: TRANSFER TO SNF/ECF
[2016-07-25 15:52] VITALS: PULSE 84
[2016-07-26] MEDS ORDERED: FUROSEMIDE 40 MG TAB PO SCH (09:00)
--- NOTE | 2016-08-09 08:50 | PN ---
ADDENDUM: DATE OF SERVICE: 07/19/2016 ASSESSMENT: 1. Acute exacerbation of moderate persistent asthma, improving.
== END 2016-07-25 17:50 | DRG 291 ==
LOC: EC 11:47 → 6ICU 12:31 → 6SEL 07-16 15:02
PROVIDERS: ADMIT Hospitalist; ATTEND Hospitalist
PROC: 5A09557 Assistance with Respiratory Ventilation, Greater than 96 Consecutive Hours, Continuous Positive Airway Pressure (ICD-10-PCS; principal; 2016-07-14)
DX: I13.0 Hypertensive heart and chronic kidney disease with heart failure and stage 1 through stage 4 chronic kidney disease, or unspecified chronic kidney disease (principal); J96.01 Acute respiratory failure with hypoxia; N17.0 Acute kidney failure with tubular necrosis; J44.0 Chronic obstructive pulmonary disease with (acute) lower respiratory infection; E87.2 Acidosis; J45.41 Moderate persistent asthma with (acute) exacerbation; I48.1 Persistent atrial fibrillation; I16.1 Hypertensive emergency; I48.92 Unspecified atrial flutter; J44.1 Chronic obstructive pulmonary disease with (acute) exacerbation; N18.4 Chronic kidney disease, stage 4 (severe); E11.21 Type 2 diabetes mellitus with diabetic nephropathy; K25.9 Gastric ulcer, unspecified as acute or chronic, without hemorrhage or perforation; I42.9 Cardiomyopathy, unspecified; E11.22 Type 2 diabetes mellitus with diabetic chronic kidney disease; E11.42 Type 2 diabetes mellitus with diabetic polyneuropathy; E11.51 Type 2 diabetes mellitus with diabetic peripheral angiopathy without gangrene; E11.65 Type 2 diabetes mellitus with hyperglycemia; E66.01 Morbid (severe) obesity due to excess calories; E78.5 Hyperlipidemia, unspecified; E87.5 Hyperkalemia; H91.90 Unspecified hearing loss, unspecified ear; I48.2 Chronic atrial fibrillation; I49.5 Sick sinus syndrome; J20.9 Acute bronchitis, unspecified; K57.90 Diverticulosis of intestine, part unspecified, without perforation or abscess without bleeding; M15.9 Polyosteoarthritis, unspecified; T38.0X5A Adverse effect of glucocorticoids and synthetic analogues, initial encounter; T50.2X5A Adverse effect of carbonic-anhydrase inhibitors, benzothiadiazides and other diuretics, initial encounter; Z79.4 Long term (current) use of insulin; Z79.52 Long term (current) use of systemic steroids; Z79.899 Other long term (current) drug therapy; Z88.0 Allergy status to penicillin; Z88.2 Allergy status to sulfonamides; Z88.8 Allergy status to other drugs, medicaments and biological substances; Z95.0 Presence of cardiac pacemaker
CPT/HCPCS: 71010; 80048; 80053; 80061; 81001; 82550; 82553; 82570; 83036; 83605; 83735; 84156; 84484; 85025; 85610; 85730; 87040; 87086; 87205; 93005; 93306; 94640; 94660; 94760; 96365; 96367; 96375; 96376; 99285

== ENCOUNTER 2016-10-31 14:08 | Inpatient (IN) | payer MEDICARE ==
[2016-10-31] MEDS ORDERED: SODIUM CHLORIDE 0.9% 1,000 ML IV STA (14:20)
[2016-10-31] MEDS ORDERED: ONDANSETRON 4 MG/2 ML VIAL IVP STA (14:20)
[2016-10-31] MEDS ORDERED: PANTOPRAZOLE 40 MG/10 ML VIAL IVP STA (14:20)
[2016-10-31] MEDS ORDERED: SODIUM CHLORIDE 0.9% 1,000 ML IV ONE (14:32)
--- NOTE | 2016-10-31 14:32 | ED ---
General Adult HPI - General Stated complaint: GI Bleed Time Seen by Provider: 10/31/16 14:20 Source: RN notes reviewed, old records reviewed - History of Present Illness Initial comments: This is an 81-year-old female here for evaluation of GI bleed, positive dark tarry stools. Patient's history of GI bleed. No blood thinners. As a transfer patient from [facility] with low hemoglobin. Positive blood in her stool with dark tarry stools. Patient denies weakness or fatigue. Denies that she can pass out - Related Data Home Medications Medication Instructions Recorded Confirmed Montelukast [Singulair] 10 mg PO HS 09/29/13 07/14/16 Budesonide [Pulmicort] 0.5 mg INHALATION RT-BID 06/30/14 07/14/16 Calcitriol 0.25 mcg PO DAILY 08/01/14 07/14/16 Formoterol Fumarate [Perforomist] 20 mcg INHALATION RT-BID 08/01/14 07/14/16 Insulin Glargine [Lantus] 10 unit SQ HS 08/01/14 07/14/16 Insulin Aspart [NovoLOG] See Protocol SQ ACHS 05/04/16 07/14/16 Pregabalin [Lyrica] 75 mg PO BID 05/04/16 07/14/16 Verapamil HCl [Verapamil ER] 180 mg PO HS 05/04/16 07/14/16 Allopurinol [Zyloprim] 100 mg PO DAILY 07/14/16 07/14/16 Docusate [Colace] 100 mg PO DAILY PRN 07/14/16 07/14/16 Ipratropium Nebulized [Atrovent 0.5 mg INHALATION RT-Q6H PRN 07/14/16 07/14/16 Nebulized] Levalbuterol HCl [Xopenex 0.63 mg INHALATION RT-Q4H PRN 07/14/16 07/14/16 Nebulized] Pantoprazole Sodium [Protonix] 40 mg PO DAILY 07/14/16 07/14/16 predniSONE See Taper PO DAILY 07/14/16 07/14/16 Previous Rx's Medication Instructions Recorded Metoprolol Tartrate [Lopressor] 50 mg PO BID tab 07/10/14 Ferrous Sulfate [Feosol] 325 mg PO DAILY #30 tab 05/18/16 Atorvastatin [Lipitor] 40 mg PO DAILY tab 07/25/16 Docusate [Colace] 100 mg PO DAILY PRN #0 cap 07/25/16 Furosemide [Lasix] 40 mg PO DAILY tab 07/25/16 Levofloxacin [Levaquin] 250 mg PO Q48H #4 tab 07/25/16 Nitroglycerin Sl Tabs [Nitrostat] 0.4 mg SUBLINGUAL Q5M PRN #0 tab 07/25/16 Sodium Bicarbonate Tab 650 mg PO BID tab 07/25/16 Verapamil Sr [Isoptin Sr] 180 mg PO DAILY@2100 tablet.er 07/25/16 methylPREDNISolone Dose Pack 4 mg PO DIRECTED #21 package 07/25/16 [Medrol Dose Pack] Allergies Allergy/AdvReac Type Severity Reaction Status Date / Time penicillin G Allergy Severe Anaphylaxis Verified 07/14/16 14:22 albuterol Allergy Rapid Verified 07/14/16 15:20 Heart Rate arformoterol tartrate Allergy Dyspnea Verified 07/14/16 15:20 [From Brovana] ceftriaxone sodium Allergy SOB Verified 07/14/16 14:22 [From Rocephin] sulfamethoxazole Allergy Unknown Verified 07/14/16 15:20 [From Bactrim] trimethoprim [From Bactrim] Allergy Unknown Verified 07/14/16 15:20 meperidine HCl [From Demerol] AdvReac Nausea & Verified 07/14/16 13:49 Vomiting Sulfa (Sulfonamide AdvReac Unknown Verified 07/14/16 15:20 Antibiotics) Review of Systems ROS Statement: Those systems with pertinent positive or pertinent negative responses have been documented in the HPI. ROS Other: All systems not noted in ROS Statement are negative. Past Medical History Past Medical History: Atrial Fibrillation, Asthma, COPD, Diabetes Mellitus, GI Bleed, Hearing Disorder / Deafness, Hypertension, Osteoarthritis (OA), Pneumonia , Renal Disease, Vascular Disorder Additional Past Medical History / Comment(s): Chronic severe persistent bronchial asthma, chronic renal failure, morbid obesity, chronic atrial fibrillation, previous history of GI bleed attributed to anticoagulation with warfarin and diverticulosis and pyloric polyp, large antral ulceration at the site of a prior polypectomy, and based on that the patient was taken off Coumadin, diabetes mellitus, osteoarthritis, peripheral vascular disease, sick sinus syndrome and the patient has a permanent pacemaker in place, hypertension History of Any Multi-Drug Resistant Organisms: None Reported Past Surgical History: Appendectomy, Heart Catheterization, Hysterectomy, Pacemaker Additional Past Surgical History / Comment(s): cataract surgery 2011 Past Anesthesia/Blood Transfusion Reactions: No Reported Reaction Type of Cardiac Device: Permanent Pacemaker Device Placement Date:: 2011 Past Psychological History: No Psychological Hx Reported Smoking Status: Never smoker Past Alcohol Use History: None Reported Past Drug Use History: None Reported - Past Family History Mother Family Medical History: Cancer Additional Family Medical History / Comment(s): Hodgkins General Exam General appearance: alert, in no apparent distress Head exam: Present: atraumatic, normocephalic, normal inspection Eye exam: Present: normal appearance, PERRL, EOMI. Absent: scleral icterus, conjunctival injection, periorbital swelling ENT exam: Present: normal exam, mucous membranes moist Neck exam: Present: normal inspection. Absent: tenderness, meningismus, lymphadenopathy Respiratory exam: Present: normal lung sounds bilaterally. Absent: respiratory distress, wheezes, rales, rhonchi, stridor Cardiovascular Exam: Present: regular rate, normal rhythm, normal heart sounds. Absent: systolic murmur, diastolic murmur, rubs, gallop, clicks GI/Abdominal exam: Present: soft, normal bowel sounds. Absent: distended, tenderness, guarding, rebound, rigid Rectal exam: Present: heme (+) stool, black stool Extremities exam: Present: normal inspection, full ROM, normal capillary refill. Absent: tenderness, pedal edema, joint swelling, calf tenderness Back exam: Present: normal inspection Neurological exam: Present: alert, oriented X3, CN II-XII intact Psychiatric exam: Present: normal affect, normal mood Skin exam: Present: warm, dry, intact, normal color. Absent: rash Course - Reevaluation(s) Reevaluation #1: 10/31/16 14:31 Medical record is reviewed, transiently work is reviewed, hemoglobin is 12 down to 10 Medical Decision Making - Medical Decision Making 81 female the ER for evaluation of GI bleed, dark tarry is black stools. Patient will be admitted regarding anemia, GI bleed. Protonix. Monitor hemoglobin Disposition Clinical Impression: Anemia, GI bleed Disposition: ADMITTED IP TO THIS [facility] Condition: Serious Referrals: Wilfred Turner MD [Primary Care Provider] - 1-2 days
[2016-10-31] MEDS ORDERED: ONDANSETRON 4 MG/2 ML VIAL IVP PRN (14:34)
[2016-10-31 15:21] LABS: Basophils # (A) 0.1 k/uL (0-0.2); Basophils % (A) 1 %; CH 32.4; CHCM 34.4; Eosinophils # (A) 0.1 k/uL (0-0.7); Eosinophils % (A) 1 %; HCT 30.4 % (34.0-46.0); HDW 2.58; HGB 10.2 gm/dL (11.4-16.0); Luc # (Auto) 0.21; Luc % (Auto) 2; Lymphocytes # (A) 1.5 k/uL (1.0-4.8); Lymphocytes % (A) 15 %; MCH 31.8 pg (25.0-35.0); MCHC 33.6 g/dL (31.0-37.0); MCV 94.5 fL (80.0-100.0); Mean Platelet Volume 9.8; Monocytes # (A) 0.5 k/uL (0-1.0); Monocytes % (A) 5 %; Neutrophils % (A) 77 %; RBC 3.21 m/uL (3.80-5.40); RDW 15.5 % (11.5-15.5); WBC 10.5 k/uL (3.8-10.6); WBC (Perox) 10.23
[2016-10-31 15:29] LABS: Calcium 9.3 mg/dL (8.4-10.2); INR 1.1 (<1.1); Magnesium 1.7 mg/dL (1.6-2.3); Partial Thromboplastin Time 22.2 sec (22.0-30.0); Potassium 4.6 mmol/L (3.5-5.1); Prothrombin Time 10.8 sec (9.0-12.0); Total Bilirubin 0.3 mg/dL (0.2-1.3); Total Protein 5.1 g/dL (6.3-8.2)
[2016-10-31 15:43] LABS: Creatine Kinase 29 U/L (30-135)
[2016-10-31 15:55] LABS: Creatine Kinase MB 2.1 ng/mL (0.0-2.4); Troponin I <0.012 ng/mL (0.000-0.034)
[2016-10-31 17:38] LABS: Glucose,Whole Blood 132 mg/dL (75-99)
[2016-10-31 18:12] VITALS: BMI 37.3
[2016-10-31] MEDS ORDERED: FUROSEMIDE 40 MG TAB PO PRN (18:34)
[2016-10-31 20:34] LABS: Glucose,Whole Blood 125 mg/dL (75-99)
[2016-10-31] MEDS: BUDESONIDE 0.5 MG/2 ML NEBU INHALATION SCH (20:46)
[2016-10-31] MEDS: FORMOTEROL FUMARATE 20 MCG/2 ML NEBU INHALATION SCH (20:46)
--- NOTE | 2016-10-31 20:48 | P.GSCN ---
History of Present Illness Consult date: 10/31/16 Reason for Consult: Gastrointestinal bleed Requesting physician: Gustavo Mejia History of present illness: The patient is an 81-year-old female who had been transferred from [facility] to [facility] after developing tarry stools for more than a day. She denies any abdominal pain. She is very hard of hearing. She denies any previous episodes. Incidentally she is also on steroids. She's not had an upper endoscopy or lower endoscopy prior to her transfer. Gen. surgery's consult today for her tarry stools. Review of Systems CONSTITUTIONAL: Denies any fever or chills. HEENT: Denies any trouble with vision, nosebleeds. No difficulty swallowing. She is hard of hearing. LYMPHATIC: The patient denies any lumps and bumps around the neck. ENDOCRINE: Denies any thyroid disorders. Has blood sugar glucose intolerance. RESPIRATORY: Denies recent pneumonia. Has troubles with breathing or dyspnea on exertion. CARDIOVASCULAR: Denies recent heart attacks. Has atrial fibrillation. GASTROINTESTINAL: Has heart burn, constipation intolerance stools for 2 days. GENITOURINARY: Denies any blood in urine or increased urinary frequency. MUSCULOSKELETAL: Has back pain, stiffness, joint arthritis. NEUROLOGIC: Denies any numbness or tingling along the distal extremities. No seizure disorders or headaches. PSYCHIATRIC: Denies depression or suidical ideation. HEMATOLOGIC: She presents with an tarry stools from gastric intestinal hemorrhage. Past Medical History Past Medical History: Atrial Fibrillation, Asthma, COPD, Diabetes Mellitus, GI Bleed, Hearing Disorder / Deafness, Hypertension, Osteoarthritis (OA), Pneumonia , Renal Disease, Vascular Disorder Additional Past Medical History / Comment(s): Chronic severe persistent bronchial asthma, chronic renal failure, morbid obesity, chronic atrial fibrillation, previous history of GI bleed attributed to anticoagulation with warfarin and diverticulosis and pyloric polyp, large antral ulceration at the site of a prior polypectomy, and based on that the patient was taken off Coumadin, diabetes mellitus, osteoarthritis, peripheral vascular disease, sick sinus syndrome and the patient has a permanent pacemaker in place, hypertension History of Any Multi-Drug Resistant Organisms: None Reported Past Surgical History: Appendectomy, Heart Catheterization, Hysterectomy, Pacemaker Additional Past Surgical History / Comment(s): cataract surgery 2011 Past Anesthesia/Blood Transfusion Reactions: No Reported Reaction Type of Cardiac Device: Permanent Pacemaker Device Placement Date:: 2012 Past Psychological History: No Psychological Hx Reported Smoking Status: Never smoker Past Alcohol Use History: None Reported Past Drug Use History: None Reported - Past Family History Mother Family Medical History: Cancer Additional Family Medical History / Comment(s): Hodgkins Medications and Allergies Home Medications Medication Instructions Recorded Confirmed Type Montelukast [Singulair] 10 mg PO HS 09/29/13 10/31/16 History Budesonide [Pulmicort] 0.5 mg INHALATION RT-BID 06/30/14 10/31/16 History Calcitriol 0.25 mcg PO DAILY 08/01/14 10/31/16 History Formoterol Fumarate [Perforomist] 20 mcg INHALATION RT-BID 08/01/14 10/31/16 History Insulin Glargine [Lantus] 10 unit SQ HS 08/01/14 10/31/16 History Insulin Aspart [NovoLOG] See Protocol SQ ACHS 05/04/16 10/31/16 History Pregabalin [Lyrica] 75 mg PO BID 05/04/16 10/31/16 History Allopurinol [Zyloprim] 100 mg PO DAILY 07/14/16 10/31/16 History Ipratropium Nebulized [Atrovent 0.5 mg INHALATION RT-Q6H PRN 07/14/16 10/31/16 History Nebulized] Levalbuterol HCl [Xopenex 0.63 mg INHALATION RT-Q4H PRN 07/14/16 10/31/16 History Nebulized] Acetaminophen Tab [Tylenol Tab] 500 - 1,000 mg PO Q6HR PRN 10/31/16 10/31/16 History Biotin 5 mg PO DAILY 10/31/16 10/31/16 History Cholecalciferol [Vitamin D3] 2,000 unit PO DAILY 10/31/16 10/31/16 History Furosemide [Lasix] 40 mg PO Q3D PRN 10/31/16 10/31/16 History Sodium Bicarbonate 325 mg PO DAILY 10/31/16 10/31/16 History Verapamil HCl [Verelan Pm] 200 mg PO HS 10/31/16 10/31/16 History predniSONE 5 mg PO DAILY 10/31/16 10/31/16 History Allergies Allergy/AdvReac Type Severity Reaction Status Date / Time penicillin G Allergy Severe Anaphylaxis Verified 10/31/16 15:10 albuterol Allergy Rapid Verified 10/31/16 15:10 Heart Rate arformoterol tartrate Allergy Dyspnea Verified 10/31/16 15:10 [From Brovana] ceftriaxone sodium Allergy SOB Verified 10/31/16 15:10 [From Rocephin] sulfamethoxazole Allergy Unknown Verified 10/31/16 15:10 [From Bactrim] trimethoprim [From Bactrim] Allergy Unknown Verified 10/31/16 15:10 meperidine HCl [From Demerol] AdvReac Nausea & Verified 10/31/16 15:10 Vomiting Sulfa (Sulfonamide AdvReac Unknown Verified 10/31/16 15:10 Antibiotics) Surgical - Exam Vital Signs Temp Pulse Resp BP Pulse Ox 97.4 F L 83 16 165/94 97 10/31/16 14:56 10/31/16 14:56 10/31/16 14:56 10/31/16 14:56 10/31/16 14:56 GENERAL: Well developed and in no acute distress. Pleasant. HEENT: No sclera icterus. Extraocular movements grossly intact. Moist buccal mucosa. Head is atraumatic, normocephalic. Cannot hear conversational speech. No nasal drainage. NECK: Supple without lymphadenopathy. CHEST: Non-labored respirations and equal bilateral excursions. CARDIOVASCULAR: Irregular rate and rhythm. Palpable 2+ radial pulses. ABDOMEN: Soft, nontender. Nondistended. MUSCULOSKELETAL: No clubbing, cyanosis or edema. NEUROLOGIC: No focal or lateralizing signs. PSYCH: Appropriate affect. Alert and oriented to person, place and time. Results - Labs 10/31/16 14:53 10/31/16 14:53 Abnormal Lab Results - Last 24 Hours (Table) 10/31/16 10/31/16 10/31/16 Range/Units 14:53 14:53 14:53 RBC 3.21 L (3.80-5.40) m/uL Hgb 10.2 L (11.4-16.0) gm/dL Hct 30.4 L (34.0-46.0) % Plt Count 129 L (150-450) k/uL Neutrophils # 8.0 H (1.3-7.7) k/uL Chloride 111 H (98-107) mmol/L BUN 114 H* (7-17) mg/dL Creatinine 2.00 H (0.52-1.04) mg/dL Glucose 125 H (74-99) mg/dL POC Glucose (mg/dL) (75-99) mg/dL Total Creatine Kinase 29 L (30-135) U/L Total Protein 5.1 L (6.3-8.2) g/dL Albumin 2.9 L (3.5-5.0) g/dL 10/31/16 10/31/16 Range/Units 17:37 20:32 RBC (3.80-5.40) m/uL Hgb (11.4-16.0) gm/dL Hct (34.0-46.0) % Plt Count (150-450) k/uL Neutrophils # (1.3-7.7) k/uL Chloride (98-107) mmol/L BUN (7-17) mg/dL Creatinine (0.52-1.04) mg/dL Glucose (74-99) mg/dL POC Glucose (mg/dL) 132 H 125 H (75-99) mg/dL Total Creatine Kinase (30-135) U/L Total Protein (6.3-8.2) g/dL Albumin (3.5-5.0) g/dL Diabetes panel 10/31/16 Range/Units 14:53 Sodium 141 (137-145) mmol/L Potassium 4.6 (3.5-5.1) mmol/L Chloride 111 H (98-107) mmol/L Carbon Dioxide 22 (22-30) mmol/L BUN 114 H* (7-17) mg/dL Creatinine 2.00 H (0.52-1.04) mg/dL Glucose 125 H (74-99) mg/dL Calcium 9.3 (8.4-10.2) mg/dL AST 14 (14-36) U/L ALT 27 (9-52) U/L Alkaline Phosphatase 64 (38-126) U/L Total Protein 5.1 L (6.3-8.2) g/dL Albumin 2.9 L (3.5-5.0) g/dL Calcium panel 10/31/16 Range/Units 14:53 Calcium 9.3 (8.4-10.2) mg/dL Albumin 2.9 L (3.5-5.0) g/dL Pituitary panel 10/31/16 Range/Units 14:53 Sodium 141 (137-145) mmol/L Potassium 4.6 (3.5-5.1) mmol/L Chloride 111 H (98-107) mmol/L Carbon Dioxide 22 (22-30) mmol/L BUN 114 H* (7-17) mg/dL Creatinine 2.00 H (0.52-1.04) mg/dL Glucose 125 H (74-99) mg/dL Calcium 9.3 (8.4-10.2) mg/dL Adrenal panel 10/31/16 Range/Units 14:53 Sodium 141 (137-145) mmol/L Potassium 4.6 (3.5-5.1) mmol/L Chloride 111 H (98-107) mmol/L Carbon Dioxide 22 (22-30) mmol/L BUN 114 H* (7-17) mg/dL Creatinine 2.00 H (0.52-1.04) mg/dL Glucose 125 H (74-99) mg/dL Calcium 9.3 (8.4-10.2) mg/dL Total Bilirubin 0.3 (0.2-1.3) mg/dL AST 14 (14-36) U/L ALT 27 (9-52) U/L Alkaline Phosphatase 64 (38-126) U/L Total Protein 5.1 L (6.3-8.2) g/dL Albumin 2.9 L (3.5-5.0) g/dL Assessment and Plan (1) GI bleed Status: Acute (2) Anemia Status: Chronic (3) Atrial fibrillation Status: Acute (4) Chronic a-fib Status: Acute (5) GI bleed Status: Acute (6) Hypertension Status: Acute (7) Obesity Status: Acute (8) Diabetes mellitus Status: Chronic Plan: 1. Recommend upper endoscopy with her history of tarry stools. 2. Colonoscopy on hold pending results of upper endoscopy. 3. Nothing by mouth after midnight. 4. Protonix infusion. Will follow. Thank you for this kind consultation.
[2016-10-31] MEDS ORDERED: INSULIN GLARGINE 100 UNIT/ML 10 ML VIAL SQ SCH (21:00)
[2016-10-31] MEDS: PANTOPRAZOLE 40 MG/10 ML VIAL IVP SCH (21:29)
[2016-10-31] MEDS: MONTELUKAST 10 MG TAB PO SCH (21:29)
[2016-10-31] MEDS: METOPROLOL TARTRATE 50 MG TAB PO SCH (21:30)
[2016-10-31] MEDS: VERAPAMIL SR 240 MG TABLET.ER PO SCH (21:30)
[2016-10-31] MEDS: PREGABALIN 75 MG CAP PO SCH (21:35)
[2016-11-01 06:14] LABS: Glucose,Whole Blood 99 mg/dL (75-99)
--- NOTE | 2016-11-01 07:07 | HP ---
DATE OF ADMISSION: 10/31/2016 PRESENTING COMPLAINT: Black stools. HISTORY OF PRESENTING COMPLAINT: This is a very pleasant lady with an extensive medical history. Patient's chronic stable medical conditions include COPD, asthma, congestive heart failure EF 40% to 45%, atrial flutter fibrillation, hypertension, chronic kidney disease stage III, peripheral arterial disease, primary osteoarthritis, pacemaker. Patient had a EGD by Dr. Montoya on 05/15/16, found to have a large antral ulcer with evidence of gastritis. Patient's Coumadin had been discontinued. Does not take any aspirin or NSAIDs. Patient presents with black stools yesterday, became dizzy, also had some epigastric pain and she was transferred from [facility]. Tired and rundown. Daughter is at the bedside. REVIEW OF SYSTEMS: CONSTITUTIONAL: Weak and tired. HEENT: Decreased hearing. RESPIRATORY: Baseline some shortness of breath. CARDIOVASCULAR: None. GASTROINTESTINAL: As above. GENITOURINARY: None. MUSCULOSKELETAL: Arthritic pain in the joints. DERMATOLOGICAL: None. HEMATOLOGICAL: None. LYMPHATIC: None. PSYCHIATRY: None. NEUROLOGICAL: None. PAST HISTORY: COPD/asthma, CHF, EF 40% to 45%, atrial flutter, hypertension, chronic kidney disease stage III, peripheral arterial disease, primary osteoarthritis, sick sinus syndrome with a pacemaker, large antral ulcer. PAST SURGICAL HISTORY: Appendectomy, cardiac catheterization, hysterectomy, pacemaker. SOCIAL HISTORY: No smoking or alcohol. Lives with her daughter Shereen. Family history of Hodgkin's. HOME MEDICATIONS: 1. Prednisone 5 mg a day. 2. Verapamil PM 200 mg q.h.s. 3. Sodium bicarb 325 p.o. daily. 4. Lyrica 75 mg b.i.d. 5. Singulair 10 mg q.h.s. 6. Lopressor 50 mg b.i.d. 7. Xopenex q.4 p.r.n. 8. Atrovent q.6 p.r.n. 9. Lantus 10 units subcu q.h.s. 10. NovoLog per protocol. 11. Lasix 40 mg q.3 days. 12. Perforomist 20 mcg inhalation b.i.d. 13. Colace 1 mg p.o. daily p.r.n. 14. Vitamin D3, 2000 units p.o. daily. 15. Calcitriol 0.25 mcg p.o. daily. 16. Pulmicort 0.5 inhalations b.i.d. 17. Biotin 5 mg p.o. daily. 18. Allopurinol 100 mg p.o. daily. Allergies to PENICILLIN, ALBUTEROL, BROVANA, CEFTRIAXONE, BACTRIM, MEPERIDINE, SULFA. ON EXAMINATION: VITAL SIGNS ON PRESENTATION: Temperature 97.4, pulse 83, respirations 16, blood pressure 165/94, pulse ox 97% on room air. GENERAL APPEARANCE: Well built, sitting up, not in distress. EYES: Pupils equal. Conjunctivae pale. HEENT: Oral cavity normal. NECK: JVD not raised. Mass not palpable. RESPIRATORY: Effort normal. LUNGS: Slightly decreased breath sounds. CARDIOVASCULAR: Heart sounds irregular. No edema. ABDOMEN: Soft, nontender. Liver and spleen not palpable. LYMPHATIC: No lymph node palpable in the neck or axillae. PSYCHIATRY: Alert and oriented x3. Mood and affect normal. NEUROLOGICAL: Pupils equal. Cranial nerves grossly intact. Power and sensation grossly intact. INVESTIGATIONS: White count 10.5, hemoglobin 10.2. Potassium 4.6. BUN 114, creatinine 2.0. Patient's BUN and creatinine was 87 and 1.96 on 07/25/16. ASSESSMENT: 1. Acute upper gastrointestinal bleed, likely in a patient with known gastric antral ulcer in a patient who has been off any NSAIDs or Coumadin products. 2. Moderate persistent asthma. 3. Chronic congestive heart failure from systolic dysfunction; ejection fraction 40% to 45% from hypertensive heart disease. 4. Persistent atrial flutter. 5. Essential hypertension. 6. 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 7. Peripheral arterial disease. 8. Primary osteoarthritis of multiple joints bilaterally. 9. Sick sinus syndrome with a pacemaker in place. PLAN: Home medications will be resumed. Consultation is made to GI and General Surgery. Patient will be put on clear liquid diet. Care was discussed with the patient and ( ) daughter at bedside.
[2016-11-01] MEDS: BUDESONIDE 0.5 MG/2 ML NEBU INHALATION SCH ×2 (07:17→19:53)
[2016-11-01] MEDS: FORMOTEROL FUMARATE 20 MCG/2 ML NEBU INHALATION SCH ×2 (07:17→19:53)
[2016-11-01 07:33] LABS: Calcium 9.1 mg/dL (8.4-10.2); Potassium 4.8 mmol/L (3.5-5.1)
[2016-11-01] MEDS: INSULIN LISPRO (humaLOG) 300 UNIT/3 ML VIAL SQ SCH ×4 (07:59→23:03)
[2016-11-01] MEDS: PANTOPRAZOLE 40 MG/10 ML VIAL IVP SCH ×2 (09:13→22:57)
[2016-11-01] MEDS: METOPROLOL TARTRATE 50 MG TAB PO SCH ×2 (09:13→22:59)
--- NOTE | 2016-11-01 09:54 | P.CONS ---
History of Present Illness - Reason for Consult Consult date: 11/01/16 GI bleed Requesting physician: Gustavo Mejia - History of Present Illness 81-year-old female transferred from [place] with reports of black tarry stools. History of EGD and attempted colonoscopy (incomplete secondary to poor prep) in [place] April 2016. EGD identified a large stomach polyp status post polypectomy. Post EGD she developed fresh blood per rectum and hematemesis transferred to [facility] and underwent re-surveillance EGD April 2016. Large antral ulceration likely representing the site of prior polypectomy was identified with no evidence of active bleeding at that time. At that time patient was receiving Coumadin since discontinued. Presents as a transfer from [place] with reports of melena on Monday. She had one lack colored looking bowel movement with no recurrence. Denies abdominal pain. Past medical history diverticulosis, congestive heart failure, atrial fibrillation, hypertension, chronic kidney disease, pacemaker, peripheral arterial disease. Hemoglobin 10.2. MCV 94. Platelet 129. White count 10.5. INR 1.1. BUN 114. Creatinine 2.0. Denies fever, chills, gross hematemesis, or hematochezia. No NSAIDs or aspirin. Review of Systems Constitutional: Denies fever, chills, sweats, weight gain, or loss. HEENT: Negative for migraines, blurred vision or loss, earaches, drainage, tinnitus, oral mucosal lesions, dysphagia, or odynophagia. CARDIAC: atrial fibrillation/flutter. Pacemaker. CHF. Negative for chest pain , arrhythmias, or palpitation. RESPIRATORY: Asthma. Negative for shortness of breath, hemoptysis, cough, or sputum production. GI: See HPI for pertinent findings. : Negative for hematuria, urgency, frequency, polyuria, or dysuria. GYNc: Denies possibility of . Negative vaginal discharge. MUSCULOSKELETAL: Negative for muscle aches, swelling, arthritis, and arthralgias. NEUROLOGIC: Negative for stroke or TIA. ENDOCRINE: Negative for thyroid problems. SKIN: Negative for rash or itching. PSYCHIATRIC: Negative history for depression and anxiety All systems: negative (see HPI) Past Medical History Past Medical History: Atrial Fibrillation, Asthma, COPD, Diabetes Mellitus, GI Bleed, Hearing Disorder / Deafness, Hypertension, Osteoarthritis (OA), Pneumonia , Renal Disease, Vascular Disorder Additional Past Medical History / Comment(s): Chronic severe persistent bronchial asthma, chronic renal failure, morbid obesity, chronic atrial fibrillation, previous history of GI bleed attributed to anticoagulation with warfarin and diverticulosis and pyloric polyp, large antral ulceration at the site of a prior polypectomy, and based on that the patient was taken off Coumadin, diabetes mellitus, osteoarthritis, peripheral vascular disease, sick sinus syndrome and the patient has a permanent pacemaker in place, hypertension History of Any Multi-Drug Resistant Organisms: None Reported Past Surgical History: Appendectomy, Heart Catheterization, Hysterectomy, Pacemaker Additional Past Surgical History / Comment(s): cataract surgery 2011 Past Anesthesia/Blood Transfusion Reactions: No Reported Reaction Type of Cardiac Device: Permanent Pacemaker Device Placement Date:: 2011 Past Psychological History: No Psychological Hx Reported Smoking Status: Never smoker Past Alcohol Use History: None Reported Past Drug Use History: None Reported - Past Family History Mother Family Medical History: Cancer Additional Family Medical History / Comment(s): Hodgkins Medications and Allergies Home Medications Medication Instructions Recorded Confirmed Type Montelukast [Singulair] 10 mg PO HS 09/29/13 10/31/16 History Budesonide [Pulmicort] 0.5 mg INHALATION RT-BID 06/30/14 10/31/16 History Calcitriol 0.25 mcg PO DAILY 08/01/14 10/31/16 History Formoterol Fumarate [Perforomist] 20 mcg INHALATION RT-BID 08/01/14 10/31/16 History Insulin Glargine [Lantus] 10 unit SQ HS 08/01/14 10/31/16 History Insulin Aspart [NovoLOG] See Protocol SQ ACHS 05/04/16 10/31/16 History Pregabalin [Lyrica] 75 mg PO BID 05/04/16 10/31/16 History Allopurinol [Zyloprim] 100 mg PO DAILY 07/14/16 10/31/16 History Ipratropium Nebulized [Atrovent 0.5 mg INHALATION RT-Q6H PRN 07/14/16 10/31/16 History Nebulized] Levalbuterol HCl [Xopenex 0.63 mg INHALATION RT-Q4H PRN 07/14/16 10/31/16 History Nebulized] Acetaminophen Tab [Tylenol Tab] 500 - 1,000 mg PO Q6HR PRN 10/31/16 10/31/16 History Biotin 5 mg PO DAILY 10/31/16 10/31/16 History Cholecalciferol [Vitamin D3] 2,000 unit PO DAILY 10/31/16 10/31/16 History Furosemide [Lasix] 40 mg PO Q3D PRN 10/31/16 10/31/16 History Sodium Bicarbonate 325 mg PO DAILY 10/31/16 10/31/16 History Verapamil HCl [Verelan Pm] 200 mg PO HS 10/31/16 10/31/16 History predniSONE 5 mg PO DAILY 10/31/16 10/31/16 History Allergies Allergy/AdvReac Type Severity Reaction Status Date / Time penicillin G Allergy Severe Anaphylaxis Verified 10/31/16 15:10 albuterol Allergy Rapid Verified 10/31/16 15:10 Heart Rate arformoterol tartrate Allergy Dyspnea Verified 10/31/16 15:10 [From Brovana] ceftriaxone sodium Allergy SOB Verified 10/31/16 15:10 [From Rocephin] sulfamethoxazole Allergy Unknown Verified 10/31/16 15:10 [From Bactrim] trimethoprim [From Bactrim] Allergy Unknown Verified 10/31/16 15:10 meperidine HCl [From Demerol] AdvReac Nausea & Verified 10/31/16 15:10 Vomiting Sulfa (Sulfonamide AdvReac Unknown Verified 10/31/16 15:10 Antibiotics) Physical Exam Vitals: Vital Signs Temp Pulse Pulse Resp BP BP Pulse Ox 11/01/16 07:34 84 11/01/16 07:18 76 11/01/16 04:00 96.8 F L 94 18 144/81 98 11/01/16 00:00 97.1 F L 83 20 144/64 95 10/31/16 21:07 94 10/31/16 20:46 96 10/31/16 20:00 97.0 F L 114 H 20 137/98 98 10/31/16 18:19 99 20 10/31/16 18:18 97.8 F 99 20 190/93 96 10/31/16 17:47 96.7 F L 95 18 166/76 99 10/31/16 17:00 90 18 150/90 10/31/16 16:01 75 18 140/89 10/31/16 15:01 86 18 144/95 100 10/31/16 14:56 97.4 F L 83 16 165/94 97 Intake and Output 10/31/16 11/01/16 11/01/16 22:59 06:59 14:59 Intake Total 2500 Output Total 600 300 Balance 1900 -300 Intake: Amount of Fluid Infused ( 1000 ml) Intake, IV Titration 1500 Amount Sodium Chloride 0.9% 1, 1500 000 ml @ 100 mls/hr IV . Q10H ONE Rx#:[id number] Output: Urine 600 300 Other: Voiding Method Toilet Toilet # Voids 1 1 Weight 92.533 kg 92.4 kg General appearance: The patient is alert, oriented, in no acute distress. HET: Head is normocephalic and atraumatic. Pupils are equal and reactive. Oropharynx is clear without lesions. Neck: Supple without lymphadenopathy. Trachea midline. Heart: S1 S2. Regular rate and rhythm. Lungs: No crackles or wheezes are heard. Abdomen: Soft, nontender, nondistended with bowel sounds. No peritoneal signs. No palpable organomegaly or masses. Extremities: Normal skin color and turgor. No cyanosis, rash, ulceration, clubbing, or edema. Radial and pedal pulses are 2/4 bilaterally. Neurological: No focal deficits. Strength and sensation are grossly intact. Results CBC & Chem 7: 10/31/16 14:53 11/01/16 06:16 Labs: Abnormal Lab Results - Last 24 Hours (Table) 10/31/16 10/31/16 10/31/16 Range/Units 14:53 14:53 14:53 RBC 3.21 L (3.80-5.40) m/uL Hgb 10.2 L (11.4-16.0) gm/dL Hct 30.4 L (34.0-46.0) % Plt Count 129 L (150-450) k/uL Neutrophils # 8.0 H (1.3-7.7) k/uL Sodium (137-145) mmol/L Chloride 111 H (98-107) mmol/L Carbon Dioxide (22-30) mmol/L BUN 114 H* (7-17) mg/dL Creatinine 2.00 H (0.52-1.04) mg/dL Glucose 125 H (74-99) mg/dL POC Glucose (mg/dL) (75-99) mg/dL Total Creatine Kinase 29 L (30-135) U/L Total Protein 5.1 L (6.3-8.2) g/dL Albumin 2.9 L (3.5-5.0) g/dL 10/31/16 10/31/16 11/01/16 Range/Units 17:37 20:32 06:16 RBC (3.80-5.40) m/uL Hgb (11.4-16.0) gm/dL Hct (34.0-46.0) % Plt Count (150-450) k/uL Neutrophils # (1.3-7.7) k/uL Sodium 146 H (137-145) mmol/L Chloride 119 H (98-107) mmol/L Carbon Dioxide 19 L (22-30) mmol/L BUN 104 H* (7-17) mg/dL Creatinine 1.83 H (0.52-1.04) mg/dL Glucose (74-99) mg/dL POC Glucose (mg/dL) 132 H 125 H (75-99) mg/dL Total Creatine Kinase (30-135) U/L Total Protein (6.3-8.2) g/dL Albumin (3.5-5.0) g/dL Assessment and Plan (1) GI bleed Status: Acute (2) Melena Status: Acute (3) Acute blood loss anemia Status: Acute Plan: 1. General surgery scheduled to perform EGD today. 2. Monitor CBC. 3. Protonix 40 mg IV twice daily. Thank you for this kind referral and the opportunity to participate in the care of your patient. This consultation was discussed with Dr. Guzman. The impression and plan of care have been directed as dictated.
[2016-11-01 10:20] LABS: Anisocytosis Slight; Basophils # (A) 0.1 k/uL (0-0.2); Basophils % (A) 1 %; CH 32.2; CHCM 33.3; Eosinophils # (A) 0.2 k/uL (0-0.7); Eosinophils % (A) 2 %; HCT 29.5 % (34.0-46.0); HDW 2.49; HGB 9.4 gm/dL (11.4-16.0); Luc # (Auto) 0.43; Luc % (Auto) 4; Lymphocytes % (A) 27 %; MCH 31.2 pg (25.0-35.0); MCHC 32.1 g/dL (31.0-37.0); MCV 97.3 fL (80.0-100.0); Macrocytosis Slight; Mean Platelet Volume 12.3; Monocytes # (A) 0.9 k/uL (0-1.0); Monocytes % (A) 8 %; Neutrophils # (A) 6.7 k/uL (1.3-7.7); Neutrophils % (A) 59 %; RBC 3.03 m/uL (3.80-5.40); RDW 16.1 % (11.5-15.5); WBC 11.4 k/uL (3.8-10.6); WBC (Perox) 11.38
[2016-11-01 11:34] LABS: Glucose,Whole Blood 94 mg/dL (75-99)
[2016-11-01] MEDS ORDERED: LACTATED RINGERS 1,000 ML IV ONE (13:50)
--- NOTE | 2016-11-01 13:56 | P.HPADDEND ---
H&P Addendum H&P Addendum Date: 11/01/16 Patient presents with history of tarry stools. She denies any bloody bowel movements in 2 days. Hemoglobin has dropped. We'll proceed with upper endoscopy.
[2016-11-01] MEDS ORDERED: PROPOFOL 10 MG/ML 20 ML VIAL IV ONE (14:03)
[2016-11-01] MEDS ORDERED: LIDOCAINE 1% INJ 10MG/ML (20 ML MDV) ONE (14:03)
--- NOTE | 2016-11-01 14:36 | P.PCN ---
Date of Procedure: 11/01/16 Preoperative Diagnosis: Postoperative Diagnosis: Procedure(s) Performed: Implants: Indications for Procedure: Operative Findings: Description of Procedure: PREOPERATIVE DIAGNOSIS: History of gastrointestinal hemorrhage. Melena. Personal history of acute blood loss anemia. POSTOPERATIVE DIAGNOSIS: History of gastrointestinal hemorrhage. Melena. Personal history of acute blood loss anemia. OPERATION: Esophagogastroduodenoscopy. SURGEON: Janene Sandoval MD ANESTHESIA: MAC. INDICATIONS: The patient is a 81-year-old female who presents with a history melena and gastrointestinal bleeding. Benefits and risks of the procedure were described. Informed consent was obtained. DESCRIPTION: The patient was brought into the endoscopy suite and laid in the left lateral decubitus position. An Olympus gastroscope was passed along the posterior oropharynx down to the distal esophagus where the squamocolumnar junction was encountered at 40 cm from the incisors. The stomach was entered and bile reflux was found. Additional findings are listed below. The antrum had a hyperplastic polyp. The first through third portion of the duodenum was examined and unremarkable. Retroflexion of the scope confirmed Hill grade 4 lower esophageal valve. The squamocolumnar junction demostrated LA grade B erosive esophagitis. The stomach was desufflated. The patient tolerated the procedure well. FINDINGS: Squamocolumnar junction 40 cm from the incisors. Diaphragmatic hiatus at 40 cm. Hill grade 4 lower esophageal valve. LA grade B erosive esophagitis. No active duodenitis. No duodenal ulcers. No peptic ulcers. No diffuse gastritis. Hyperplastic gastric polyp along the antrum. RECOMMENDATIONS: May start liquid diet and advance diet as tolerated. Should she bleed then proceed with colonoscopy.
[2016-11-01] MEDS: PREGABALIN 75 MG CAP PO SCH ×2 (15:14→23:07)
[2016-11-01] MEDS: ALLOPURINOL 100 MG TAB PO SCH (15:15)
[2016-11-01] MEDS: CHOLECALCIFEROL 1,000 UNIT TAB PO SCH (15:15)
[2016-11-01] MEDS: predniSONE 5 MG TAB PO SCH (15:15)
[2016-11-01 17:03] LABS: Glucose,Whole Blood 121 mg/dL (75-99)
--- NOTE | 2016-11-01 17:22 | P.PN ---
Progress Note - Text DATE OF SERVICE: 11/01/2016 PRESENTING COMPLAINT: Black stools INTERVAL HISTORY: Patient admitted with black stools, symptomatic. Today patient has had no black stools no further epigastric pain, no dizziness. Appears tired, nothing by mouth for EGD today. REVIEW OF SYSTEMS: Done for constitutional ,cardiovascular, GI, pulmonary with relevant findings as above. CURRENT MEDICATIONS: Allopurinol, Lasix, Lantus, prednisone. PHYSICAL EXAM: VITAL SIGNS: Temperature 97.3, pulse 70, respiratory rate 16, pressure 143/79, oxygen saturation 99% on room air. GENERAL APPEARANCE: Lying in bed, appears comfortable. EYES: Pupils equal. Conjunctiva normal. NECK: JVD not raised. Mass not palpable. RESPIRATORY: Respiratory effort normal. Lungs clear to auscultation. CARDIOVASCULAR: First and second sounds normal. No edema. ABDOMEN: Soft. Liver and spleen not palpable. No tenderness. No mass palpable. PSYCHIATRY: Alert and oriented x3. Mood and affect normal. INVESTIGATIONS: 11.4, hemoglobin 9.4, reticulocyte count 126, sodium 146, potassium 4.8, BUN 104 , creatinine 1.83. ASSESSMENT: 1. Acute upper GI bleed, known gastric antral ulcer, not on any NSAIDs or Coumadin product. 2. Moderate persistent asthma 3. Chronic congestive heart failure from systolic dysfunction ejection fraction 40-45% from hypertensive heart disease. 4. Persistent atrial flutter. 5. Essential hypertension. 6. 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 7. Peripheral arterial disease. 8. Primary osteoarthritis of multiple joints bilaterally. 9. Sick sinus syndrome with pacemaker in place. PLAN: Patient go for EGD today, pleasant care discussed with patient and daughter at the bedside. We'll continue current medication and treatment plan. BUSINESS PROCESS CONSULTANT statement: Patient was seen and examined by nurse practitioner Anat Johnston in all elements of the case discussed with attending is Dr. Mejia
--- NOTE | 2016-11-01 18:47 | CONS ---
DATE OF CONSULTATION: REASON FOR CONSULTATION: Renal failure. HISTORY OF PRESENT ILLNESS: Patient is an 81-year-old female with a history of chronic kidney disease, NKF stage IIIB to, stage IV secondary to nephrosclerosis and diabetic nephropathy. Baseline creatinine about 1.7 to 2 mg/dL. Patient was admitted to the hospital this admission with complaints of black tarry stools. Patient denies any chest pain. No history of vomiting. No significant abdominal pain. She was actually transferred from [facility] where she presented also with fatigue. Hemoglobin at about 9.4 g/dL. Patient is scheduled for endoscopy today. Her creatinine this admission is about 1.8 mg/dL, which is not far from her baseline. PAST MEDICAL HISTORY: Chronic atrial fibrillation, COPD, coronary artery disease, hypertension, COPD, hypertension, chronic kidney disease, stage IIIB to stage IV, peripheral vascular disease. PAST SURGICAL HISTORY: Appendectomy, cardiac catheterization, hysterectomy, pacemaker, cataract surgery permanent pacemaker placement. SOCIAL HISTORY: Negative for smoking, drug abuse or alcohol abuse. Medications at home prior to admission included: 1. Singulair. 2. Pulmicort. 3. Calcitriol. 4. Insulin. 5. Lyrica. 6. Verapamil. 7. Zyloprim. 8. Colace. 9. Protonix. 10. Prednisone. 11. Lopressor. 12. Iron. 13. Lipitor. 14. Lasix. 15. Nitrostat. 16. Isoptin. 17. Patient has been on prednisone previously. ALLERGIES: MULTIPLE INCLUDE PENICILLIN, BROVANA, ROCEPHIN AND BACTRIM, DEMEROL, SULFA. REVIEW OF SYSTEMS: As per HPI. Other systems negative. On examination, blood pressure is 161/74, heart rate 72 per minute. The patient is afebrile. Examination of the heart S1 and S2. Examination of the lungs: Bilateral breath sounds are heard. ABDOMEN: Soft, nontender. Examination of lower extremities shows trace edema bilaterally. Chronic skin changes are noted. CERTIFIED PARALEGAL exam is grossly intact. Labs show sodium 146, potassium 4.8, BUN 104, serum creatinine 1.83. Hemoglobin currently at 9.4 g/dL. ASSESSMENT: 1. Chronic kidney disease, NKF stage IV, secondary to nephrosclerosis and diabetic nephropathy and renal function currently at baseline. Patient had been on IV fluids. Currently she is off of IV fluids. 2. Disproportionately elevated BUN secondary to underlying gastrointestinal bleed. 3. Chronic obstructive pulmonary disease. 4. Coronary artery disease. 5. Chronic atrial fibrillation with controlled ventricular response. 6. Gastrointestinal bleed; scheduled for endoscopy today. The patient did have endoscopy and was found to have erosive esophagitis. PLAN: Continue off of IV fluids and continue the Protonix. Repeat labs in a.m. Encourage increased oral intake. I will hold off on Lasix until the patient has had good oral intake. She does not appear to be fluid overloaded at this time. Thank you for this consultation. We will continue to follow the patient with you during her hospitalization.
[2016-11-01 20:54] LABS: Hemoglobin A1C 6.3 % (4.2-6.1)
--- NOTE | 2016-11-01 20:55 | P.PN ---
Progress Note - Text Patient seen and evaluated this evening. She had a bowel movement without tarry -colored. Son is at bedside. No reports of abdominal pain. Continue heart healthy diet. Recommend physical therapy and occupational therapy. Patient agreeable for discharge when medically stable.
[2016-11-01 21:08] LABS: Glucose,Whole Blood 190 mg/dL (75-99)
--- NOTE | 2016-11-01 22:53 | PN ---
DATE OF SERVICE: 11/01/2016 ATTENDING NOTE: This patient was seen and examined by me earlier today. I reviewed the note of my nurse practitioner, Ms. Johnston. Discussed and reviewed initial findings below. This patient was admitted with black stools. No further black stools. Awaiting an EGD. Tired, lying in bed. Daughter at the bedside. On examination, lungs are clear. CARDIOVASCULAR: First and second sounds are normal. ABDOMEN: Soft, nontender. ASSESSMENT: Acute gastrointestinal bleed with prior history of gastric antral ulcer, pending esophagogastroduodenoscopy. PLAN: Await EGD. Hemoglobin noted. Daughter had concerns about blood transfusion, did explain to her that with the new guidelines, the blood transfusion normally is given at or below 7 until the hemoglobin is between 7 and 8 when other clinical factors draw in. She did re-emphasize that she was well aware of the guidelines and again emphasized that giving blood transfusion over numbers not indicated may be harmful and of course we will follow the patient clinically and also that patient is being followed by a specialist and we are all working together in conjunction ( ) the patient.
[2016-11-01] MEDS: VERAPAMIL SR 240 MG TABLET.ER PO SCH (22:58)
[2016-11-01] MEDS: MONTELUKAST 10 MG TAB PO SCH (22:59)
[2016-11-02 04:51] LABS: Glucose,Whole Blood 167 mg/dL (75-99)
[2016-11-02] MEDS: INSULIN LISPRO (humaLOG) 300 UNIT/3 ML VIAL SQ SCH ×4 (06:40→22:00)
[2016-11-02] MEDS: PANTOPRAZOLE 40 MG/10 ML VIAL IVP SCH (08:27)
[2016-11-02] MEDS: METOPROLOL TARTRATE 50 MG TAB PO SCH ×2 (08:27→21:59)
[2016-11-02] MEDS: ALLOPURINOL 100 MG TAB PO SCH (08:27)
[2016-11-02] MEDS: FORMOTEROL FUMARATE 20 MCG/2 ML NEBU INHALATION SCH ×2 (08:27→20:19)
[2016-11-02] MEDS: CHOLECALCIFEROL 1,000 UNIT TAB PO SCH (08:27)
[2016-11-02] MEDS: BUDESONIDE 0.5 MG/2 ML NEBU INHALATION SCH ×2 (08:27→20:19)
[2016-11-02] MEDS: predniSONE 5 MG TAB PO SCH (08:27)
[2016-11-02] MEDS: PREGABALIN 75 MG CAP PO SCH (08:30)
[2016-11-02] MEDS ORDERED: LACTULOSE 20 GM/30 ML CUP PO ONE (09:35)
[2016-11-02 09:39] LABS: Anisocytosis Slight; Basophils # (A) 0.1 k/uL (0-0.2); Basophils % (A) 0 %; CH 32.1; Eosinophils # (A) 0.2 k/uL (0-0.7); Eosinophils % (A) 1 %; HCT 22.4 % (34.0-46.0); HDW 2.65; Luc # (Auto) 0.36; Luc % (Auto) 2; Lymphocytes # (A) 2.9 k/uL (1.0-4.8); Lymphocytes % (A) 20 %; MCH 31.5 pg (25.0-35.0); MCHC 32.2 g/dL (31.0-37.0); MCV 97.9 fL (80.0-100.0); Macrocytosis Slight; Mean Platelet Volume 9.3; Monocytes % (A) 7 %; Neutrophils # (A) 10.2 k/uL (1.3-7.7); Neutrophils % (A) 70 %; RBC 2.29 m/uL (3.80-5.40); RDW 16.1 % (11.5-15.5); WBC 14.6 k/uL (3.8-10.6); WBC (Perox) 14.85
[2016-11-02 09:42] LABS: HGB 7.2 gm/dL (11.4-16.0)
[2016-11-02 09:42] LABS: Potassium 4.5 mmol/L (3.5-5.1)
[2016-11-02 09:58] LABS: ABG PCO2 21 mmHg (35-45); ABG PH 7.44 (7.35-7.45)
[2016-11-02 09:59] LABS: ABG HCO3 14 mmol/L (21-25); ABG PO2 148 mmHg (83-108); ABG TCO2 15 mmol/L (19-24)
[2016-11-02] MEDS: SODIUM CHLORIDE 0.9% 250 ML IV SCH ×2 (09:59→11:01)
[2016-11-02] MEDS ORDERED: FUROSEMIDE 10 MG/ML 2 ML VIAL IV ONE (09:59)
[2016-11-02 10:27] LABS: Total Bilirubin 0.6 mg/dL (0.2-1.3); Total Protein 4.7 g/dL (6.3-8.2)
--- NOTE | 2016-11-02 11:08 | P.PN ---
Subjective Principal diagnosis: GI bleed anemia 81-year-old female who witnessed a black stool on Monday transferred from [place] underwent EGD evaluation yesterday with general surgery with no evidence of active bleeding or peptic ulcer disease. No recurrence of black stools. Hemoglobin decreased 7.2 this morning. Denies abdominal pain. Afebrile. Objective - Vital Signs Vital signs: Vital Signs Temp 97.3 F L 11/02/16 10:42 Pulse 56 L 11/02/16 10:42 Resp 17 11/02/16 10:42 BP 126/56 11/02/16 10:42 Pulse Ox 100 11/02/16 10:42 Intake & Output 11/01/16 11/02/16 11/02/16 18:59 06:59 18:59 Intake Total 170 240 Output Total 1700 400 Balance 170 -1700 -160 Weight 90.6 kg Intake: IV 50 Oral 120 240 Blood Product 0 Rc Pheresis As-3 Unit 0 [id number] Output: Urine 1700 400 Other: Voiding Method Toilet Toilet Toilet # Voids 3 3 1 # Bowel Movements 1 1 - Exam General appearance: The patient is alert, oriented, in no acute distress. HET: Head is normocephalic and atraumatic. Pupils are equal and reactive. Oropharynx is clear without lesions. Neck: Supple without lymphadenopathy. Trachea midline. Heart: S1 S2. Regular rate and rhythm. Lungs: No crackles or wheezes are heard. Abdomen: Soft, nontender, nondistended with bowel sounds. No peritoneal signs. No palpable organomegaly or masses. Extremities: Normal skin color and turgor. No cyanosis, rash, ulceration, clubbing, or edema. Radial and pedal pulses are 2/4 bilaterally. Neurological: No focal deficits. Strength and sensation are grossly intact. - Labs CBC & Chem 7: 11/02/16 09:14 11/02/16 09:10 Labs: Abnormal Lab Results - Last 24 Hours (Table) 10/31/16 10/31/16 11/01/16 Range/Units 14:53 14:53 16:35 WBC (3.8-10.6) k/uL RBC (3.80-5.40) m/uL Hgb (11.4-16.0) gm/dL Hct (34.0-46.0) % RDW (11.5-15.5) % Neutrophils # (1.3-7.7) k/uL ABG pCO2 (35-45) mmHg ABG pO2 (83-108) mmHg ABG HCO3 (21-25) mmol/L ABG Total CO2 (19-24) mmol/L ABG O2 Saturation (94-97) % Chloride (98-107) mmol/L Carbon Dioxide (22-30) mmol/L BUN (7-17) mg/dL Creatinine (0.52-1.04) mg/dL Glucose (74-99) mg/dL POC Glucose (mg/dL) 121 H (75-99) mg/dL Hemoglobin A1c 6.3 H (4.2-6.1) % AST (14-36) U/L Alkaline Phosphatase (38-126) U/L Total Protein (6.3-8.2) g/dL Albumin (3.5-5.0) g/dL Crossmatch See Detail 11/01/16 11/02/16 11/02/16 Range/Units 21:05 04:48 09:10 WBC (3.8-10.6) k/uL RBC (3.80-5.40) m/uL Hgb (11.4-16.0) gm/dL Hct (34.0-46.0) % RDW (11.5-15.5) % Neutrophils # (1.3-7.7) k/uL ABG pCO2 (35-45) mmHg ABG pO2 (83-108) mmHg ABG HCO3 (21-25) mmol/L ABG Total CO2 (19-24) mmol/L ABG O2 Saturation (94-97) % Chloride 114 H (98-107) mmol/L Carbon Dioxide 19 L (22-30) mmol/L BUN 109 H* (7-17) mg/dL Creatinine 2.03 H (0.52-1.04) mg/dL Glucose 153 H (74-99) mg/dL POC Glucose (mg/dL) 190 H 167 H (75-99) mg/dL Hemoglobin A1c (4.2-6.1) % AST 13 L (14-36) U/L Alkaline Phosphatase 33 L (38-126) U/L Total Protein 4.7 L (6.3-8.2) g/dL Albumin 2.6 L (3.5-5.0) g/dL Crossmatch 11/02/16 11/02/16 Range/Units 09:14 09:55 WBC 14.6 H (3.8-10.6) k/uL RBC 2.29 L (3.80-5.40) m/uL Hgb 7.2 L D (11.4-16.0) gm/dL Hct 22.4 L (34.0-46.0) % RDW 16.1 H (11.5-15.5) % Neutrophils # 10.2 H (1.3-7.7) k/uL ABG pCO2 21 L (35-45) mmHg ABG pO2 148 H (83-108) mmHg ABG HCO3 14 L (21-25) mmol/L ABG Total CO2 15 L (19-24) mmol/L ABG O2 Saturation 99.0 H (94-97) % Chloride (98-107) mmol/L Carbon Dioxide (22-30) mmol/L BUN (7-17) mg/dL Creatinine (0.52-1.04) mg/dL Glucose (74-99) mg/dL POC Glucose (mg/dL) (75-99) mg/dL Hemoglobin A1c (4.2-6.1) % AST (14-36) U/L Alkaline Phosphatase (38-126) U/L Total Protein (6.3-8.2) g/dL Albumin (3.5-5.0) g/dL Crossmatch Assessment and Plan (1) GI bleed Narrative/Plan: Status post EGD with general surgery no evidence of active GI bleed or peptic ulcer disease. Status: Acute (2) Melena Status: Acute (3) Acute blood loss anemia Status: Acute Plan: 1. Patient had an attempted colonoscopy in April secondary to poor prep. We'll defer to general surgery for further workup of anemia; possible colonoscopy. 2. Continue GI prophylaxis and symptomatic supportive care. We'll follow as needed. Assessment and plan of care discussed with Dr. Guzman.
[2016-11-02 11:26] LABS: Glucose,Whole Blood 146 mg/dL (75-99)
--- NOTE | 2016-11-02 12:39 | P.PN ---
Subjective 81-year-old female being seen on rounds this morning daughter at bedside. Currently is receiving 1 unit of packed red blood cells for hemoglobin of 7.2 this morning. Patient did have an EGD done on the by Dr. Sandoval it showed no evidence of any active bleed no evidence of peptic ulcer disease. No reoccurring black stools noted. Currently patient is reporting no abdominal pain when questioning Objective - Vital Signs Vital signs: Vital Signs Temp 96.9 F L 11/02/16 11:12 Pulse 55 L 11/02/16 11:12 Resp 16 11/02/16 11:12 BP 134/66 11/02/16 11:12 Pulse Ox 87 L 11/02/16 12:12 Intake & Output 11/01/16 11/02/16 11/02/16 18:59 06:59 18:59 Intake Total 170 490 Output Total 1700 400 Balance 170 -1700 90 Weight 90.6 kg Intake: IV 50 Intake, IV Titration 250 Amount Sodium Chloride 0.9% 250 250 ml @ 999 mls/hr IV .Q16M [facility] Rx#:[id number] Oral 120 240 Blood Product 0 Rc Pheresis As-3 Unit 0 [id number] Output: Urine 1700 400 Other: Voiding Method Toilet Toilet Toilet # Voids 3 3 1 # Bowel Movements 1 1 - Exam Physical exam -81 year-old female resting in bed currently receiving 1 unit of packed red blood cells morning is oriented to person and place Lungs essentially clear with adequate air movement Heart S1-S2 audible and regular rate and rhythm Abdomen soft nontender bowel sounds present no stool Extremities no edema noted - Labs CBC & Chem 7: 11/02/16 09:14 11/02/16 09:10 Labs: Abnormal Lab Results - Last 24 Hours (Table) 10/31/16 10/31/16 11/01/16 Range/Units 14:53 14:53 16:35 WBC (3.8-10.6) k/uL RBC (3.80-5.40) m/uL Hgb (11.4-16.0) gm/dL Hct (34.0-46.0) % RDW (11.5-15.5) % Neutrophils # (1.3-7.7) k/uL ABG pCO2 (35-45) mmHg ABG pO2 (83-108) mmHg ABG HCO3 (21-25) mmol/L ABG Total CO2 (19-24) mmol/L ABG O2 Saturation (94-97) % Chloride (98-107) mmol/L Carbon Dioxide (22-30) mmol/L BUN (7-17) mg/dL Creatinine (0.52-1.04) mg/dL Glucose (74-99) mg/dL POC Glucose (mg/dL) 121 H (75-99) mg/dL Hemoglobin A1c 6.3 H (4.2-6.1) % AST (14-36) U/L Alkaline Phosphatase (38-126) U/L Total Protein (6.3-8.2) g/dL Albumin (3.5-5.0) g/dL Crossmatch See Detail 11/01/16 11/02/16 11/02/16 Range/Units 21:05 04:48 09:10 WBC (3.8-10.6) k/uL RBC (3.80-5.40) m/uL Hgb (11.4-16.0) gm/dL Hct (34.0-46.0) % RDW (11.5-15.5) % Neutrophils # (1.3-7.7) k/uL ABG pCO2 (35-45) mmHg ABG pO2 (83-108) mmHg ABG HCO3 (21-25) mmol/L ABG Total CO2 (19-24) mmol/L ABG O2 Saturation (94-97) % Chloride 114 H (98-107) mmol/L Carbon Dioxide 19 L (22-30) mmol/L BUN 109 H* (7-17) mg/dL Creatinine 2.03 H (0.52-1.04) mg/dL Glucose 153 H (74-99) mg/dL POC Glucose (mg/dL) 190 H 167 H (75-99) mg/dL Hemoglobin A1c (4.2-6.1) % AST 13 L (14-36) U/L Alkaline Phosphatase 33 L (38-126) U/L Total Protein 4.7 L (6.3-8.2) g/dL Albumin 2.6 L (3.5-5.0) g/dL Crossmatch 06/14/17 06/14/17 06/14/17 Range/Units 09:14 09:55 11:14 WBC 14.6 H (3.8-10.6) k/uL RBC 2.29 L (3.80-5.40) m/uL Hgb 7.2 L D (11.4-16.0) gm/dL Hct 22.4 L (34.0-46.0) % RDW 16.1 H (11.5-15.5) % Neutrophils # 10.2 H (1.3-7.7) k/uL ABG pCO2 21 L (35-45) mmHg ABG pO2 148 H (83-108) mmHg ABG HCO3 14 L (21-25) mmol/L ABG Total CO2 15 L (19-24) mmol/L ABG O2 Saturation 99.0 H (94-97) % Chloride (98-107) mmol/L Carbon Dioxide (22-30) mmol/L BUN (7-17) mg/dL Creatinine (0.52-1.04) mg/dL Glucose (74-99) mg/dL POC Glucose (mg/dL) 146 H (75-99) mg/dL Hemoglobin A1c (4.2-6.1) % AST (14-36) U/L Alkaline Phosphatase (38-126) U/L Total Protein (6.3-8.2) g/dL Albumin (3.5-5.0) g/dL Crossmatch Assessment and Plan Plan: Impression Present on admission acute blood loss anemia suspect due to a GI bleed requiring blood transfusions Acute episode of melena Status post EGD done on November 01 with no evidence of an active GI bleed or peptic ulcer disease Chronic congestive heart failure systolic dysfunction EF 40-45% no evidence of an exacerbation Peripheral artery disease Plan Continued blood transfusion as ordered Monitor hemoglobin attempt keep in a therapeutic range Possible eval for colonoscopy this will be determined by surgical service DVT and GI prophylaxis The above dictated assessment and findings were discussed with dr Prieto Impression and the plan of care have been dictated as directed. Ana Diaz nurse practitioner acting as a scribe for dr Prieot
[2016-11-02] MEDS ORDERED: PEG 3350-NA SULF,BICARB,CL/KCL 4,000 ML BOTTLE PO ONE (13:13)
[2016-11-02] MEDS ORDERED: BISACODYL 5 MG TABLET.DR PO STA (13:16)
--- NOTE | 2016-11-02 13:23 | PN ---
Patient is seen for followup for chronic kidney disease. She was admitted to the hospital with GI bleed. Patient did have endoscopy, which showed erosive esophagitis. This morning she was complaining of feeling weak and fatigued. Her hemoglobin came back at 7.2 g/dL and patient will be receiving 2 units packed RBCs. Blood pressure this morning was 89/50. Patient did receive a fluid bolus of 250 mL. Heart rate about 55 per minute. She is afebrile. EXAMINATION OF THE HEART: S1 and S2. EXAMINATION OF THE LUNGS: Bilateral breath sounds are heard. ABDOMEN: Soft, nontender. Examination of the lower extremities shows trace edema bilaterally. ELECTRICAL AND [employer] MECH[employer]IC exam is grossly intact. Labs show hemoglobin 7.2 g/dL. Sodium 142, potassium 4.5, BUN 109, serum creatinine 2.03. ASSESSMENT: 1. Chronic kidney disease, NKF stage IV, secondary to nephrosclerosis and diabetic nephropathy. Renal function is not far from baseline. The BUN is disproportionately elevated secondary to gastrointestinal bleed. 2. Ongoing gastrointestinal bleed with significant drop in hemoglobin today. Patient will receive 2 units packed RBCs. She did have the endoscopy yesterday that showed erosive esophagitis. No bleeding ulcers were noted. 3. Disproportionately elevated BUN secondary to gastrointestinal bleed. PLAN: Transfuse packed RBCs, may need Lasix in between. I will give her a 250 mL bolus while the packed RBCs is arranged for.
[2016-11-02 16:37] LABS: Glucose,Whole Blood 155 mg/dL (75-99)
--- NOTE | 2016-11-02 16:41 | P.PN ---
Progress Note - Text DATE OF SERVICE: 11/01/2016 PRESENTING COMPLAINT: Black stools INTERVAL HISTORY: Patient admitted with black stools, symptomatic. EGD negative per Dr. Prieto. This morning Lethargic yet arousable with noxious stimuli, CBC and BMP revealed hemoglobin of 7.2 down from 9.4. Blood pressure on arrival was 126 /56, within a half an hour it was 89/50, ABG drawn, 250 mL bolus of 0.9% normal saline, 2 units of packed red cells given with 20 Lasix in between each unit. Patient after the first unit, worked up quite a bit, more interactive more awake recognized her daughter. Extensive discussion had with the daughter regarding lab work treatment plan and care. All questions answered. REVIEW OF SYSTEMS: Done for constitutional ,cardiovascular, GI, pulmonary with relevant findings as above. CURRENT MEDICATIONS: Allopurinol, Lasix, Lantus, prednisone. PHYSICAL EXAM: VITAL SIGNS: Temperature 97.0 pulse 70 respiratory rate 18 blood pressure 122/75 oxygen saturation 97% on room air GENERAL APPEARANCE: Lying in bed, lethargic arousable to noxious stimuli. EYES: Pupils equal. Conjunctiva pale NECK: JVD not raised. Mass not palpable. RESPIRATORY: Respiratory labored. Lungs diminished to auscultation. CARDIOVASCULAR: Irregular . No edema. ABDOMEN: Soft. Liver and spleen not palpable. No tenderness. No mass palpable. PSYCHIATRY: Lethargic. Mood and affect bordering on obtunded. INVESTIGATIONS: White blood cell count 14.6, hemoglobin 7.2, sodium 142, BUN 109, creatinine 2.03, glucose 153. ASSESSMENT: 1. Acute upper GI bleed, black stools, known gastric antral ulcer, EGD negative not on any NSAIDs or Coumadin product. 2. Acute blood loss anemia likely due to GI bleed causing hypotension 3. Acute metabolic encephalopathy improving 4. Moderate persistent asthma 5. Chronic congestive heart failure from systolic dysfunction ejection fraction 40-45% from hypertensive heart disease, controlled 6. Persistent atrial flutter.65. 7.. Essential hypertension currently hypotensive 8. 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 9. Peripheral arterial disease. 10. Primary osteoarthritis of multiple joints bilaterally. 11. Sick sinus syndrome with pacemaker in place. PLAN: Patient managed as above, daughter reassured GI informed, await input from them. We'll continue to monitor closely AGRICULTURAL SPECIALIST statement: Patient was seen and examined by nurse practitioner Anat Johnston in all elements of the case discussed with attending is Dr. Mejia
--- NOTE | 2016-11-02 18:52 | CT ---
EXAMINATION TYPE: CT brain wo con DATE OF EXAM: 11/02/2016 COMPARISON: 05/13/2016 HISTORY: Patient poor historian CT DLP: 1165 mGycm Automated exposure control for dose reduction was used. FINDINGS: There is cerebral cortical atrophy. There is no mass effect nor midline shift. There is no sign of in tracranial hemorrhage. There is some mucosal thickening in the ethmoid sinuses. There is mucosal thic kening in the sphenoid sinus. Calvarium is intact. There is mild hypodensity in the periventricular w mirna matter. IMPRESSION: Cerebral atrophy and mild chronic small vessel ischemia. Chronic ethmoid and sphenoid sinusitis. No s ignificant change compared to [facility] exam on 05/13/2016.
[2016-11-02 19:52] LABS: Anisocytosis Slight; Basophils % (A) 0 %; CH 31.8; CHCM 33.5; Eosinophils % (A) 0 %; HCT 27.3 % (34.0-46.0); HDW 3.23; Luc % (Auto) 3; Lymphocytes # (A) 2.2 k/uL (1.0-4.8); Lymphocytes % (A) 19 %; MCH 31.5 pg (25.0-35.0); MCHC 32.9 g/dL (31.0-37.0); MCV 95.7 fL (80.0-100.0); Macrocytosis Slight; Monocytes # (A) 0.9 k/uL (0-1.0); Monocytes % (A) 8 %; Neutrophils # (A) 7.9 k/uL (1.3-7.7); Neutrophils % (A) 70 %; RBC 2.85 m/uL (3.80-5.40); RDW 17.6 % (11.5-15.5); WBC 11.4 k/uL (3.8-10.6); WBC (Perox) 11.48
--- NOTE | 2016-11-02 20:12 | PN ---
DATE OF SERVICE: 11/02/2016 ATTENDING NOTE: This patient was seen and examined by me earlier today, who presented with black stools. EGD yesterday was unremarkable by Dr. Sandoval. Overnight the patient had done well. This morning, the patient suddenly became lethargic. Repeat hemoglobin came down to 7.2. Blood pressure had dropped. Patient is resuscitated with fluid and given 2 units of blood. When I got to see the patient, patient actually had perked up and started asking questions. Daughter at the bedside. On examination, LUNGS: Decreased breath sounds. HEART: Sounds irregular. ABDOMEN: Soft, nontender. ASSESSMENT: 1. Acute gastrointestinal bleed with black stools. 2. Known history of gastric antral ulcer. The current EGD did not show any obvious source. The patient, probably may have a small bowel or colonic source of bleeding. It well could be the small bowel. 3. Acute blood loss anemia, symptomatic, severe. Patient is getting 2 units of blood with hypotension. PLAN: Care was discussed with the daughter at the bedside, reassured. Did communicate with Ellie from GI. She did get back to me that patient will be having a colonoscopy done by Dr. Guzman tomorrow. In the meantime, continue to monitor the patient hemodynamically closely. Total time for critical care today was about 35 minutes.
--- NOTE | 2016-11-02 21:05 | P.PN ---
Progress Note - Text Patient seen and evaluated. Patient's daughter and son at bedside. Patient's daughter has many concerns including hemoglobin being less than 10. She reports that her mother has mental status changes and reports that her mother has been more irritable . Separately, she is concerned about the moderate amount of bowel prep which is 1 gallon of GoLYTELY. Nurses also expressed concerns as she barely drank less than 500 mL. Patient is to undergo colonoscopy by Dr. Montoya, gastroenterology tomorrow. I discussed with the patient's family that this is a coordinated care including surgery and the GI service. I have encouraged the nurses to notify Dr. Montoya regarding the difficulty of the patient completing her bowel prep.
[2016-11-02 21:06] LABS: Glucose,Whole Blood 111 mg/dL (75-99)
[2016-11-02] MEDS: VERAPAMIL SR 240 MG TABLET.ER PO SCH ×2 (21:59→22:36)
[2016-11-02] MEDS: MONTELUKAST 10 MG TAB PO SCH (21:59)
[2016-11-03 06:03] LABS: Glucose,Whole Blood 101 mg/dL (75-99)
[2016-11-03 06:40] LABS: Anisocytosis Slight; Basophils % (A) 0 %; CH 31.3; CHCM 32.9; Eosinophils # (A) 0.1 k/uL (0-0.7); Eosinophils % (A) 1 %; HCT 26.5 % (34.0-46.0); HGB 8.7 gm/dL (11.4-16.0); Luc # (Auto) 0.29; Luc % (Auto) 3; Lymphocytes # (A) 2.6 k/uL (1.0-4.8); Lymphocytes % (A) 24 %; MCH 31.6 pg (25.0-35.0); MCHC 32.9 g/dL (31.0-37.0); MCV 96.1 fL (80.0-100.0); Macrocytosis Slight; Mean Platelet Volume 9.1; Monocytes # (A) 0.9 k/uL (0-1.0); Monocytes % (A) 8 %; Neutrophils # (A) 6.8 k/uL (1.3-7.7); Neutrophils % (A) 63 %; RBC 2.76 m/uL (3.80-5.40); WBC 10.8 k/uL (3.8-10.6)
[2016-11-03 06:55] LABS: Calcium 9.3 mg/dL (8.4-10.2); Potassium 4.1 mmol/L (3.5-5.1)
[2016-11-03] MEDS: INSULIN LISPRO (humaLOG) 300 UNIT/3 ML VIAL SQ SCH ×4 (07:40→21:33)
[2016-11-03] MEDS: PANTOPRAZOLE 40 MG TABLET PO SCH (07:40)
[2016-11-03] MEDS: predniSONE 5 MG TAB PO SCH (07:52)
[2016-11-03] MEDS: ALLOPURINOL 100 MG TAB PO SCH (07:52)
[2016-11-03] MEDS: METOPROLOL TARTRATE 50 MG TAB PO SCH ×2 (07:52→21:37)
[2016-11-03] MEDS: FORMOTEROL FUMARATE 20 MCG/2 ML NEBU INHALATION SCH ×2 (08:09→20:02)
[2016-11-03] MEDS: BUDESONIDE 0.5 MG/2 ML NEBU INHALATION SCH ×2 (08:09→20:02)
[2016-11-03] MEDS: CHOLECALCIFEROL 1,000 UNIT TAB PO SCH (10:05)
--- NOTE | 2016-11-03 10:48 | P.PN ---
Subjective Principal diagnosis: GI bleed anemia 81-year-old female who witnessed a black stool on Monday transferred from [place] underwent EGD evaluation 2 days ago with general surgery with no evidence of active bleeding or peptic ulcer disease. Black stool 2 yesterday. Hemoglobin decreased 8.7 this morning. Received 2 units of blood yesterday. Denies abdominal pain. Afebrile. Colonoscopy plan this morning however patient was unable to tolerate prep. Daughter at bedside. Objective - Vital Signs Vital signs: Vital Signs Temp 96.2 F L 11/02/16 14:57 Pulse 80 11/03/16 08:20 Resp 16 11/03/16 08:00 BP 144/69 11/02/16 22:00 Pulse Ox 97 11/02/16 22:00 Intake & Output 11/02/16 11/03/16 11/03/16 18:59 06:59 18:59 Intake Total 1230 Output Total 400 1500 Balance 830 -1500 Weight 90.1 kg Intake: Intake, IV Titration 250 Amount Sodium Chloride 0.9% 250 250 ml @ 999 mls/hr IV .Q16M [facility] Rx#:[id number] Oral 360 Blood Product 620 Rc Pheresis As-3 Unit 310 [id number] Rc Pheresis As3 Unit 310 [id number] Output: Urine 400 1500 Other: Voiding Method Toilet Bedside Commode Bedside Commode # Voids 1 1 # Bowel Movements 1 - Exam General appearance: The patient is alert, oriented, in no acute distress. HET: Head is normocephalic and atraumatic. Pupils are equal and reactive. Oropharynx is clear without lesions. Neck: Supple without lymphadenopathy. Trachea midline. Heart: S1 S2. Regular rate and rhythm. Lungs: No crackles or wheezes are heard. Abdomen: Soft, nontender, nondistended with bowel sounds. No peritoneal signs. No palpable organomegaly or masses. Extremities: Normal skin color and turgor. No cyanosis, rash, ulceration, clubbing, or edema. Radial and pedal pulses are 2/4 bilaterally. Neurological: No focal deficits. Strength and sensation are grossly intact. - Labs CBC & Chem 7: 11/03/16 06:15 11/03/16 06:15 Labs: Abnormal Lab Results - Last 24 Hours (Table) 10/31/16 11/02/16 11/02/16 Range/Units 14:53 09:10 09:14 WBC 14.6 H (3.8-10.6) k/uL RBC 2.29 L (3.80-5.40) m/uL Hgb 7.2 L D (11.4-16.0) gm/dL Hct 22.4 L (34.0-46.0) % RDW 16.1 H (11.5-15.5) % Plt Count (150-450) k/uL Neutrophils # 10.2 H (1.3-7.7) k/uL ABG pCO2 (35-45) mmHg ABG pO2 (83-108) mmHg ABG HCO3 (21-25) mmol/L ABG Total CO2 (19-24) mmol/L ABG O2 Saturation (94-97) % Chloride 114 H (98-107) mmol/L Carbon Dioxide 19 L (22-30) mmol/L BUN 109 H* (7-17) mg/dL Creatinine 2.03 H (0.52-1.04) mg/dL Glucose 153 H (74-99) mg/dL POC Glucose (mg/dL) (75-99) mg/dL AST 13 L (14-36) U/L Alkaline Phosphatase 33 L (38-126) U/L Total Protein 4.7 L (6.3-8.2) g/dL Albumin 2.6 L (3.5-5.0) g/dL Crossmatch See Detail 11/02/16 11/02/16 11/02/16 Range/Units 09:55 11:14 16:30 WBC (3.8-10.6) k/uL RBC (3.80-5.40) m/uL Hgb (11.4-16.0) gm/dL Hct (34.0-46.0) % RDW (11.5-15.5) % Plt Count (150-450) k/uL Neutrophils # (1.3-7.7) k/uL ABG pCO2 21 L (35-45) mmHg ABG pO2 148 H (83-108) mmHg ABG HCO3 14 L (21-25) mmol/L ABG Total CO2 15 L (19-24) mmol/L ABG O2 Saturation 99.0 H (94-97) % Chloride (98-107) mmol/L Carbon Dioxide (22-30) mmol/L BUN (7-17) mg/dL Creatinine (0.52-1.04) mg/dL Glucose (74-99) mg/dL POC Glucose (mg/dL) 146 H 155 H (75-99) mg/dL AST (14-36) U/L Alkaline Phosphatase (38-126) U/L Total Protein (6.3-8.2) g/dL Albumin (3.5-5.0) g/dL Crossmatch 11/02/16 11/02/16 11/03/16 Range/Units 19:28 21:03 06:01 WBC 11.4 H (3.8-10.6) k/uL RBC 2.85 L (3.80-5.40) m/uL Hgb 9.0 L D (11.4-16.0) gm/dL Hct 27.3 L (34.0-46.0) % RDW 17.6 H (11.5-15.5) % Plt Count 138 L (150-450) k/uL Neutrophils # 7.9 H (1.3-7.7) k/uL ABG pCO2 (35-45) mmHg ABG pO2 (83-108) mmHg ABG HCO3 (21-25) mmol/L ABG Total CO2 (19-24) mmol/L ABG O2 Saturation (94-97) % Chloride (98-107) mmol/L Carbon Dioxide (22-30) mmol/L BUN (7-17) mg/dL Creatinine (0.52-1.04) mg/dL Glucose (74-99) mg/dL POC Glucose (mg/dL) 111 H 101 H (75-99) mg/dL AST (14-36) U/L Alkaline Phosphatase (38-126) U/L Total Protein (6.3-8.2) g/dL Albumin (3.5-5.0) g/dL Crossmatch 11/03/16 11/03/16 Range/Units :15 06:15 WBC 10.8 H (3.8-10.6) k/uL RBC 2.76 L (3.80-5.40) m/uL Hgb 8.7 L (11.4-16.0) gm/dL Hct 26.5 L (34.0-46.0) % RDW 18.0 H (11.5-15.5) % Plt Count 147 L (150-450) k/uL Neutrophils # (1.3-7.7) k/uL ABG pCO2 (35-45) mmHg ABG pO2 (83-108) mmHg ABG HCO3 (21-25) mmol/L ABG Total CO2 (19-24) mmol/L ABG O2 Saturation (94-97) % Chloride 115 H (98-107) mmol/L Carbon Dioxide 19 L (22-30) mmol/L BUN 104 H* (7-17) mg/dL Creatinine 2.20 H (0.52-1.04) mg/dL Glucose (74-99) mg/dL POC Glucose (mg/dL) (75-99) mg/dL AST (14-36) U/L Alkaline Phosphatase (38-126) U/L Total Protein (6.3-8.2) g/dL Albumin (3.5-5.0) g/dL Crossmatch Assessment and Plan (1) GI bleed Narrative/Plan: Status post EGD with general surgery no evidence of active GI bleed or peptic ulcer disease. Possible colonic possible small bowel source. Status: Acute (2) Melena Status: Acute (3) Acute blood loss anemia Status: Acute Plan: 1. Patient had an attempted colonoscopy in April secondary to poor prep. Colonoscopy planned today however patient was unable to tolerate prep. We'll proceed with small bowel capsule endoscopy if negative will reevaluate and proceed with colonoscopy if agreeable with family and patient. 2. Continue GI prophylaxis and symptomatic supportive care. Monitor CBC. Assessment and plan of care discussed with Dr. Montoya.
[2016-11-03 12:03] LABS: Glucose,Whole Blood 139 mg/dL (75-99)
--- NOTE | 2016-11-03 14:15 | P.PN ---
Progress Note - Text DATE OF SERVICE: 11/03/2016 PRESENTING COMPLAINT: Black stools INTERVAL HISTORY: Patient admitted with black stools, symptomatic. EGD negative per Dr. Prieto. Lyrica reduced due to second episode of lethargy. Patient to be prepped for colonoscopy with GI unable to tolerate and refused to drink GoLYTELY , capsule endoscopy to be done first and then if needed colonoscopy. Appears tired but more awake today sitting up in the bed, states she has had some dizziness when ambulating, patient is nothing by mouth for now, worked with physical therapy. REVIEW OF SYSTEMS: Done for constitutional ,cardiovascular, GI, pulmonary with relevant findings as above. CURRENT MEDICATIONS: Allopurinol, Lasix, Lantus, prednisone. PHYSICAL EXAM: VITAL SIGNS: Temperature 97.6, pulse 68, respirations 20, blood pressure 134/62, oxygen saturation 96% on room air. GENERAL APPEARANCE: Sitting in bed, appears tired. EYES: Pupils equal. Conjunctiva pale NECK: JVD not raised. Mass not palpable. RESPIRATORY: Respiratory labored. Lungs decreased to auscultation. CARDIOVASCULAR: Sounds Irregular . No edema. ABDOMEN: Soft. Liver and spleen not palpable. No tenderness. No mass palpable. PSYCHIATRY: Alert and oriented 3, Mood and affect normal . INVESTIGATIONS: White blood cell count 10.8, hemoglobin 8.7, platelet count 147, BUN 104, creatinine 2.20. Capsule endoscopy pending ASSESSMENT: 1. Acute GI bleed, black stools, source unknown. 2. Known history of gastric antral ulcer, EGD negative not on any NSAIDs or Coumadin product. 3. Acute blood loss anemia, symptomatic, severe, patient received 2 units of blood with hypotension, improving. 3. Acute metabolic encephalopathy, improving 4. Moderate persistent asthma 5. Chronic congestive heart failure from systolic dysfunction ejection fraction 40-45% from hypertensive heart disease, controlled 6. Persistent atrial flutter. 7.. Essential hypertension 8. 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 9. Peripheral arterial disease. 10. Primary osteoarthritis of multiple joints bilaterally. 11. Sick sinus syndrome with pacemaker in place. PLAN: An attempted to be prepped for colonoscopy unsuccessfully, capsule endoscopy to take place today, pending those results if negative, will proceed with colonoscopy if agreeable with family and patient. Plan of care discussed with family and patient. CREDIT COLLECTION SPECIALIST statement: Patient was seen and examined by nurse practitioner Anat Johnston in all elements of the case discussed with attending is Dr. Mejia
--- NOTE | 2016-11-03 14:49 | PN ---
Patient is seen for followup for chronic kidney disease. She had an episode of hypotension yesterday and was noted to have a hemoglobin of 7.1 g/dL. Patient was transfused 2 units packed RBCs. She is currently doing fairly well. She did have an EGD done for GI bleed, and it showed erosive esophagitis. No active bleeding was noted. Patient is now being considered for capsule endoscopy. She denies any chest pain or shortness of breath. Her renal function has been fairly stable. On examination today, blood pressure is 127/67, heart rate 60 per minute. She is afebrile. Examination of the heart, S1 and S2. Examination of the lungs, bilateral breath sounds are heard. Abdomen is soft, nontender. Examination of lower extremities shows no significant edema. CARBON SETTER exam is grossly intact. Patient is moving all 4 extremities. Labs show sodium 144, potassium 4.1, BUN 104, serum creatinine 2.2. Hemoglobin 8.7 g/dL. ASSESSMENT: 1. Acute kidney injury secondary to anemia and hypoperfusion; however, renal function is not far from baseline. 2. Chronic kidney disease stage IV, secondary to diabetic nephropathy and nephrosclerosis with baseline creatinine around 1.8 to 2 mg/dL. 3. Anemia secondary to gastrointestinal bleed, status post EGD and being considered for capsule endoscopy. 4. Disproportionately elevated BUN secondary to gastrointestinal bleed. 5. Chronic atrial fibrillation. 6. Coronary artery disease. PLAN: No changes from nephrology standpoint. Repeat labs in the a.m. Continue to avoid nephrotoxic agents. No evidence of fluid overload at this time.
[2016-11-03] MEDS: ACETAMINOPHEN TAB 325 MG TAB PO PRN ×2 (15:28→21:37)
[2016-11-03 17:13] LABS: Glucose,Whole Blood 169 mg/dL (75-99)
--- NOTE | 2016-11-03 18:43 | P.CONS ---
History of Present Illness - Reason for Consult Consult date: 11/03/16 Lethargy - Chief Complaint Lethargy and altered mental status - History of Present Illness This pleasant 81-year-old female being evaluated by the neurology service for some altered mental status. She is being seen for acute GI bleed with melanotic stools. She has a history of gastric antral ulcer. She also has a history of chronic kidney disease. During this admission she had an episode of hypotension and also hemoglobin of 7.1. She was transfused 2 units of packed red blood cells during this time her mental status became altered and she was somewhat lethargic. At the time of my exam she is back to her baseline. An EEG has been ordered. CT of the brain showed some cerebral atrophy which was age appropriate and some mild chronic small vessel ischemic changes. There was no acute abnormality. At the time of my exam she is resting comfortably in bed in no acute distress. Review of Systems All systems: negative Past Medical History Past Medical History: Atrial Fibrillation, Asthma, COPD, Diabetes Mellitus, GI Bleed, Hearing Disorder / Deafness, Hypertension, Osteoarthritis (OA), Pneumonia , Renal Disease, Vascular Disorder Additional Past Medical History / Comment(s): Chronic severe persistent bronchial asthma, chronic renal failure, morbid obesity, chronic atrial fibrillation, previous history of GI bleed attributed to anticoagulation with warfarin and diverticulosis and pyloric polyp, large antral ulceration at the site of a prior polypectomy, and based on that the patient was taken off Coumadin, diabetes mellitus, osteoarthritis, peripheral vascular disease, sick sinus syndrome and the patient has a permanent pacemaker in place, hypertension History of Any Multi-Drug Resistant Organisms: None Reported Past Surgical History: Appendectomy, Heart Catheterization, Hysterectomy, Pacemaker Additional Past Surgical History / Comment(s): cataract surgery 2011 Past Anesthesia/Blood Transfusion Reactions: No Reported Reaction Type of Cardiac Device: Permanent Pacemaker Device Placement Date:: 2011 Past Psychological History: No Psychological Hx Reported Smoking Status: Never smoker Past Alcohol Use History: None Reported Past Drug Use History: None Reported - Past Family History Mother Family Medical History: Cancer Additional Family Medical History / Comment(s): Hodgkins Medications and Allergies Home Medications Medication Instructions Recorded Confirmed Type Montelukast [Singulair] 10 mg PO HS 09/29/13 10/31/16 History Budesonide [Pulmicort] 0.5 mg INHALATION RT-BID 06/30/14 10/31/16 History Calcitriol 0.25 mcg PO DAILY 08/01/14 10/31/16 History Formoterol Fumarate [Perforomist] 20 mcg INHALATION RT-BID 08/01/14 10/31/16 History Insulin Glargine [Lantus] 10 unit SQ HS 08/01/14 10/31/16 History Insulin Aspart [NovoLOG] See Protocol SQ ACHS 05/04/16 10/31/16 History Pregabalin [Lyrica] 75 mg PO BID 05/04/16 10/31/16 History Allopurinol [Zyloprim] 100 mg PO DAILY 07/14/16 10/31/16 History Ipratropium Nebulized [Atrovent 0.5 mg INHALATION RT-Q6H PRN 07/14/16 10/31/16 History Nebulized] Levalbuterol HCl [Xopenex 0.63 mg INHALATION RT-Q4H PRN 07/14/16 10/31/16 History Nebulized] Acetaminophen Tab [Tylenol Tab] 500 - 1,000 mg PO Q6HR PRN 10/31/16 10/31/16 History Biotin 5 mg PO DAILY 10/31/16 10/31/16 History Cholecalciferol [Vitamin D3] 2,000 unit PO DAILY 10/31/16 10/31/16 History Furosemide [Lasix] 40 mg PO Q3D PRN 10/31/16 10/31/16 History Sodium Bicarbonate 325 mg PO DAILY 10/31/16 10/31/16 History Verapamil HCl [Verelan Pm] 200 mg PO HS 10/31/16 10/31/16 History predniSONE 5 mg PO DAILY 10/31/16 10/31/16 History Allergies Allergy/AdvReac Type Severity Reaction Status Date / Time penicillin G Allergy Severe Anaphylaxis Verified 10/31/16 15:10 albuterol Allergy Rapid Verified 10/31/16 15:10 Heart Rate arformoterol tartrate Allergy Dyspnea Verified 10/31/16 15:10 [From Brovana] ceftriaxone sodium Allergy SOB Verified 10/31/16 15:10 [From Rocephin] sulfamethoxazole Allergy Unknown Verified 10/31/16 15:10 [From Bactrim] trimethoprim [From Bactrim] Allergy Unknown Verified 10/31/16 15:10 meperidine HCl [From Demerol] AdvReac Nausea & Verified 10/31/16 15:10 Vomiting Sulfa (Sulfonamide AdvReac Unknown Verified 10/31/16 15:10 Antibiotics) Physical Exam Vitals: Vital Signs Temp Pulse Pulse Resp BP Pulse Ox 11/03/16 15:37 70 18 11/03/16 15:36 97.0 F L 70 18 119/66 99 11/03/16 11:50 60 18 11/03/16 11:48 96.7 F L 60 18 127/67 98 11/03/16 09:05 97.6 F 68 20 134/62 96 11/03/16 08:20 80 11/03/16 08:10 80 11/03/16 08:00 97.6 F 68 20 134/62 96 11/03/16 04:00 80 16 11/03/16 00:00 86 16 11/02/16 22:00 15 144/69 97 11/02/16 20:00 97 17 Intake and Output 11/03/16 11/03/16 11/03/16 06:59 14:59 22:59 Intake Total 240 Output Total 1100 650 Balance -1100 -650 240 Intake: Oral 240 Output: Urine 1100 650 Other: Voiding Method Bedside Commode Bedside Commode Bedside Commode # Voids 1 1 # Bowel Movements 1 Weight 90.1 kg - Constitutional General appearance: average body habitus, no acute distress - EENT Eyes: no abnormal pupil, EOMI, PERRLA, ptosis ENT: hearing grossly normal - Neck Neck: normal ROM, no rigidity - Respiratory Respiratory: negative: prolonged expiration, prolonged inspiration - Cardiovascular Rhythm: regular - Gastrointestinal General gastrointestinal: no distended, tenderness - Neurologic Patient is alert awake and oriented 3. Speech and language are normal. There is no facial asymmetry. Strength is 5 minus out of 5 in bilateral upper lower extremities. There is no sensory deficit of the face or any extremity. No tremors or seizure-like activities are seen. Cranial nerves 2 through 12 are intact globally. There is no dysmetria. Results CBC & Chem 7: 11/03/16 06:15 11/03/16 06:15 Labs: Abnormal Lab Results - Last 24 Hours (Table) 11/02/16 11/02/16 11/03/16 Range/Units 19:28 21:03 06:01 WBC 11.4 H (3.8-10.6) k/uL RBC 2.85 L (3.80-5.40) m/uL Hgb 9.0 L D (11.4-16.0) gm/dL Hct 27.3 L (34.0-46.0) % RDW 17.6 H (11.5-15.5) % Plt Count 138 L (150-450) k/uL Neutrophils # 7.9 H (1.3-7.7) k/uL Chloride (98-107) mmol/L Carbon Dioxide (22-30) mmol/L BUN (7-17) mg/dL Creatinine (0.52-1.04) mg/dL POC Glucose (mg/dL) 111 H 101 H (75-99) mg/dL 11/03/16 11/03/16 11/03/16 Range/Units 06:15 06:15 11:59 WBC 10.8 H (3.8-10.6) k/uL RBC 2.76 L (3.80-5.40) m/uL Hgb 8.7 L (11.4-16.0) gm/dL Hct 26.5 L (34.0-46.0) % RDW 18.0 H (11.5-15.5) % Plt Count 147 L (150-450) k/uL Neutrophils # (1.3-7.7) k/uL Chloride 115 H (98-107) mmol/L Carbon Dioxide 19 L (22-30) mmol/L BUN 104 H* (7-17) mg/dL Creatinine 2.20 H (0.52-1.04) mg/dL POC Glucose (mg/dL) 139 H (75-99) mg/dL 11/03/16 Range/Units 16:54 WBC (3.8-10.6) k/uL RBC (3.80-5.40) m/uL Hgb (11.4-16.0) gm/dL Hct (34.0-46.0) % RDW (11.5-15.5) % Plt Count (150-450) k/uL Neutrophils # (1.3-7.7) k/uL Chloride (98-107) mmol/L Carbon Dioxide (22-30) mmol/L BUN (7-17) mg/dL Creatinine (0.52-1.04) mg/dL POC Glucose (mg/dL) 169 H (75-99) mg/dL Assessment and Plan (1) Altered mental status Status: Resolved (2) Acute blood loss anemia Status: Acute (3) GI bleed Status: Suspected (4) Chronic a-fib Status: Chronic (5) Acute kidney failure Status: Acute Plan: The patient's mental status was likely altered due to her significant anemia and possibly renal insufficiency. Since her transfusion, hydration and treatment she is back to her baseline. There was no concern on CT of the brain. We have ordered an EEG. Barring any unforeseen abnormalities on her EEG she would be cleared from a neurological standpoint. I have reviewed the history and physical on the above patient. I have reviewed the above note, and agree.
--- NOTE | 2016-11-03 18:57 | P.PN ---
Subjective Principal diagnosis: Acute blood loss anemia secondary to gastrointestinal hemorrhage The patient is a pleasant 81-year-old female who had been transferred from [facility] after developing acute blood loss anemia with black tarry stools. She had an upper endoscopy by me which was normal. Separately she had previous colonoscopy which were nondiagnostic secondary to poor prep within the last 8 months. She attempted GoLYTELY prep however she had intolerance to the volume. Yesterday she had altered mental status changes as noticed and witnessed by her family including lethargy; however, this morning she is awake and alert She has pleasant conversation. She described to me her family background including her parents her brother and her children. She also had a capsule endoscopy swallowed earlier today. She denies any abdominal pain. She is also tolerating her liquid diet. Objective - Vital Signs Vital signs: Vital Signs Temp 97.0 F L 11/03/16 15:36 Pulse 70 11/03/16 15:37 Resp 18 11/03/16 15:37 BP 119/66 11/03/16 15:36 Pulse Ox 99 11/03/16 15:36 Intake & Output 11/02/16 11/03/16 11/03/16 18:59 06:59 18:59 Intake Total 1230 240 Output Total 400 1500 650 Balance 830 -1500 -410 Weight 90.1 kg Intake: Intake, IV Titration 250 Amount Sodium Chloride 0.9% 250 250 ml @ 999 mls/hr IV .Q16M [facility] Rx#:[id number] Oral 360 240 Blood Product 620 Rc Pheresis As-3 Unit 310 [id number] Rc Pheresis As3 Unit 310 [id number] Output: Urine 400 1500 650 Other: Voiding Method Toilet Bedside Commode Bedside Commode # Voids 1 1 1 # Bowel Movements 1 1 - Exam GENERAL: Well developed and in no acute distress. Pleasant. HEENT: No sclera icterus. Extraocular movements grossly intact. Moist buccal mucosa. Head is atraumatic, normocephalic. Hears conversational speech. No nasal drainage. NECK: Supple without lymphadenopathy. No JV distention. CHEST: Non-labored respirations and equal bilateral excursions. CARDIOVASCULAR: Irregular rate and irregular rhythm. Palpable 2+ radial pulses. ABDOMEN: Soft, nontender. Nondistended. MUSCULOSKELETAL: No clubbing, cyanosis or edema. NEUROLOGIC: No focal or lateralizing signs. PSYCH: Appropriate affect. Alert and oriented to person, place and time. - Labs CBC & Chem 7: 11/03/16 06:15 11/03/16 06:15 Labs: Abnormal Lab Results - Last 24 Hours (Table) 11/02/16 11/02/16 11/03/16 Range/Units 19:28 21:03 06:01 WBC 11.4 H (3.8-10.6) k/uL RBC 2.85 L (3.80-5.40) m/uL Hgb 9.0 L D (11.4-16.0) gm/dL Hct 27.3 L (34.0-46.0) % RDW 17.6 H (11.5-15.5) % Plt Count 138 L (150-450) k/uL Neutrophils # 7.9 H (1.3-7.7) k/uL Chloride (98-107) mmol/L Carbon Dioxide (22-30) mmol/L BUN (7-17) mg/dL Creatinine (0.52-1.04) mg/dL POC Glucose (mg/dL) 111 H 101 H (75-99) mg/dL 11/03/16 11/03/16 11/03/16 Range/Units 06:15 06:15 11:59 WBC 10.8 H (3.8-10.6) k/uL RBC 2.76 L (3.80-5.40) m/uL Hgb 8.7 L (11.4-16.0) gm/dL Hct 26.5 L (34.0-46.0) % RDW 18.0 H (11.5-15.5) % Plt Count 147 L (150-450) k/uL Neutrophils # (1.3-7.7) k/uL Chloride 115 H (98-107) mmol/L Carbon Dioxide 19 L (22-30) mmol/L BUN 104 H* (7-17) mg/dL Creatinine 2.20 H (0.52-1.04) mg/dL POC Glucose (mg/dL) 139 H (75-99) mg/dL 11/03/16 Range/Units 16:54 WBC (3.8-10.6) k/uL RBC (3.80-5.40) m/uL Hgb (11.4-16.0) gm/dL Hct (34.0-46.0) % RDW (11.5-15.5) % Plt Count (150-450) k/uL Neutrophils # (1.3-7.7) k/uL Chloride (98-107) mmol/L Carbon Dioxide (22-30) mmol/L BUN (7-17) mg/dL Creatinine (0.52-1.04) mg/dL POC Glucose (mg/dL) 169 H (75-99) mg/dL Assessment and Plan (1) GI bleed Status: Suspected (2) Anemia Status: Chronic (3) Atrial fibrillation Status: Acute (4) Chronic a-fib Status: Chronic (5) GI bleed Status: Acute (6) Hypertension Status: Acute (7) Obesity Status: Acute (8) Diabetes mellitus Status: Chronic Plan: 1. Agree with capsule endoscopy including recommendations per GI. 2. No acute surgical intervention needed at this time. 3. Should capsule endoscopy demonstrate a small bowel bleed, the difficulty includes identifying a specific location of her small bowel bleed as well as surgical intervention. 4. Ideally recommend conservative management only as this type of bleed is very difficult to surgically manage and is usually delegated to tertiary care centers.
[2016-11-03 21:18] LABS: Glucose,Whole Blood 121 mg/dL (75-99)
[2016-11-03] MEDS: VERAPAMIL SR 240 MG TABLET.ER PO SCH (21:37)
[2016-11-03] MEDS: MONTELUKAST 10 MG TAB PO SCH (21:37)
[2016-11-03] MEDS: PREGABALIN 25 MG CAP PO SCH (21:37)
[2016-11-04] MEDS: ACETAMINOPHEN TAB 325 MG TAB PO PRN ×4 (04:59→22:15)
[2016-11-04 06:25] LABS: Glucose,Whole Blood 116 mg/dL (75-99)
[2016-11-04] MEDS: INSULIN LISPRO (humaLOG) 300 UNIT/3 ML VIAL SQ SCH ×4 (06:27→22:05)
[2016-11-04] MEDS: PANTOPRAZOLE 40 MG TABLET PO SCH (06:29)
[2016-11-04 06:45] LABS: Anisocytosis Slight; Basophils % (A) 0 %; CH 31.6; Eosinophils # (A) 0.1 k/uL (0-0.7); Eosinophils % (A) 1 %; HCT 25.6 % (34.0-46.0); HDW 3.28; HGB 8.5 gm/dL (11.4-16.0); Luc % (Auto) 3; Lymphocytes # (A) 2.4 k/uL (1.0-4.8); Lymphocytes % (A) 25 %; MCH 31.2 pg (25.0-35.0); MCHC 33.1 g/dL (31.0-37.0); MCV 94.1 fL (80.0-100.0); Monocytes # (A) 0.7 k/uL (0-1.0); Monocytes % (A) 7 %; Neutrophils # (A) 6.3 k/uL (1.3-7.7); Neutrophils % (A) 63 %; RBC 2.72 m/uL (3.80-5.40); WBC 9.9 k/uL (3.8-10.6); WBC (Perox) 10.75
[2016-11-04 06:55] LABS: Calcium 9.4 mg/dL (8.4-10.2); Potassium 3.9 mmol/L (3.5-5.1)
--- NOTE | 2016-11-04 07:35 | PN ---
DATE OF SERVICE: 11/03/2016 ATTENDING NOTE: This patient was seen and examined by me earlier today. I reviewed the note of my nurse practitioner, Janisjesus. Discussed and reviewed. Additional findings below. This is a patient presented with black stools. EGD was unremarkable. Patient did drop hemoglobin, was transfused 2 units of blood. Because the patient is lethargic, I was concerned this coming from Lyrica. I decided to stop Lyrica last night. Patient getting a capsule endoscopy today. On examination, the patient is far more awake, chirpy today. Patient's another daughter and son at the bedside. Patient getting a capsule study still done. LUNGS: Decreased breath sounds. CARDIOVASCULAR: Heart sounds irregular. PSYCH: Alert and oriented x3. Mood and affect the patient chirpy. INVESTIGATIONS: Hemoglobin 8.7, BUN 104, creatinine 2.20. ASSESSMENT: 1. Acute gastrointestinal bleed, EGD unremarkable. Small bowel capsule study done. 2. Acute blood loss anemia, status post 2 units of blood. Hemoglobin currently is stable. The patient hemodynamically stable. PLAN: I had a long talk with the patient's son and daughter at the bedside. Did explain to them in detail that Lyrica in the setting of renal failure, will likely make the patient lethargic and the fact that I stopped it yesterday and the patient is far more awake, that explains the caused. Bleeding was not actually explained. The patient been having altered mental status. We will start the patient today back on the Lyrica 25 mg twice a day. We will titrate the dose, patient's clinical response. They had questions about the capsule endoscopy. We will have Gastroenterology address that with the patient's family. Total time spent today was about 35 minutes with over to 15 minutes to 20 minutes of discussion.
[2016-11-04] MEDS: CHOLECALCIFEROL 1,000 UNIT TAB PO SCH (07:55)
[2016-11-04] MEDS: METOPROLOL TARTRATE 50 MG TAB PO SCH ×2 (07:55→22:15)
[2016-11-04] MEDS: ALLOPURINOL 100 MG TAB PO SCH (07:56)
[2016-11-04] MEDS: predniSONE 5 MG TAB PO SCH (07:56)
[2016-11-04] MEDS: PREGABALIN 25 MG CAP PO SCH ×2 (08:00→22:15)
[2016-11-04] MEDS: BUDESONIDE 0.5 MG/2 ML NEBU INHALATION SCH ×2 (08:57→20:35)
[2016-11-04] MEDS: FORMOTEROL FUMARATE 20 MCG/2 ML NEBU INHALATION SCH ×2 (08:58→20:35)
[2016-11-04 11:54] LABS: Glucose,Whole Blood 152 mg/dL (75-99)
[2016-11-04] MEDS ORDERED: MAGNESIUM CITRATE 296 ML BOTTLE PO ONE (12:24)
[2016-11-04] MEDS ORDERED: BISACODYL 5 MG TABLET.DR PO STA (12:30)
--- NOTE | 2016-11-04 12:30 | P.PN ---
Subjective Principal diagnosis: GI bleed anemia 81-year-old female who witnessed a black stool on Monday transferred from [place] underwent EGD evaluation 3 days ago with general surgery with no evidence of active bleeding or peptic ulcer disease. No BM x 24 hours. Hemoglobin 8.5. Denies abdominal pain. Afebrile. Small bowel capsule completed yesterday. Objective - Vital Signs Vital signs: Vital Signs Temp 97 F L 11/04/16 11:52 Pulse 66 11/04/16 11:52 Resp 16 11/04/16 11:52 BP 144/89 11/04/16 11:52 Pulse Ox 97 11/04/16 11:52 Intake & Output 11/03/16 11/04/16 11/04/16 18:59 06:59 18:59 Intake Total 240 305 Output Total 650 Balance -410 305 Weight 89.4 kg Intake: Oral 240 305 Output: Urine 650 Other: Voiding Method Bedside Commode Bedside Commode # Voids 1 1 # Bowel Movements 1 - Exam General appearance: The patient is alert, oriented, in no acute distress. HET: Head is normocephalic and atraumatic. Pupils are equal and reactive. Oropharynx is clear without lesions. Neck: Supple without lymphadenopathy. Trachea midline. Heart: S1 S2. Regular rate and rhythm. Lungs: No crackles or wheezes are heard. Abdomen: Soft, nontender, nondistended with bowel sounds. No peritoneal signs. No palpable organomegaly or masses. Extremities: Normal skin color and turgor. No cyanosis, rash, ulceration, clubbing, or edema. Radial and pedal pulses are 2/4 bilaterally. Neurological: No focal deficits. Strength and sensation are grossly intact. - Labs CBC & Chem 7: 11/04/16 05:30 11/04/16 05:30 Labs: Abnormal Lab Results - Last 24 Hours (Table) 11/03/16 11/03/16 11/04/16 Range/Units 16:54 21:17 05:30 RBC 2.72 L (3.80-5.40) m/uL Hgb 8.5 L (11.4-16.0) gm/dL Hct 25.6 L (34.0-46.0) % RDW 18.0 H (11.5-15.5) % Chloride (98-107) mmol/L BUN (7-17) mg/dL Creatinine (0.52-1.04) mg/dL POC Glucose (mg/dL) 169 H 121 H (75-99) mg/dL 11/04/16 11/04/16 11/04/16 Range/Units 05:30 06:24 11:53 RBC (3.80-5.40) m/uL Hgb (11.4-16.0) gm/dL Hct (34.0-46.0) % RDW (11.5-15.5) % Chloride 110 H (98-107) mmol/L BUN 81 H* (7-17) mg/dL Creatinine 2.40 H (0.52-1.04) mg/dL POC Glucose (mg/dL) 116 H 152 H (75-99) mg/dL Assessment and Plan (1) GI bleed Narrative/Plan: Status post EGD with general surgery no evidence of active GI bleed or peptic ulcer disease. Possible colonic possible small bowel source. Capsule endoscopy completed preliminary results identified old blood suspected to be distal small bowel possible right colon; visibility limited secondary to copious amounts of bilious fluid/stool. Status: Suspected (2) Melena Status: Acute (3) Acute blood loss anemia Status: Acute Plan: 1. Colonoscopy tomorrow running. 2. Preliminary capsule results discussed with family and patient. All questions were answered to their satisfaction. 3. Clear liquid diet. 4. Monitor CBC. The medical physicist has discussed the risks, benefits and alternative therapies for the above-mentioned procedure and for both sedation/analgesia as well as necessary blood product administration, if indicated, as they pertain to this patient. The patient has indicated understanding and acceptance of the risks and procedures discussed. Assessment and plan of care discussed with Dr. Montoya.
--- NOTE | 2016-11-04 12:50 | PN ---
Patient is seen for followup for chronic kidney disease. She is admitted to the hospital for GI bleed. Patient is having a capsule endoscopy. She has swallowed the capsule. We are waiting on further information. She has not had any bowel movements yet. She was transfused 2 units packed RBCs yesterday. On examination, blood pressure is 144/89, heart rate 66 per minute. She is afebrile. EXAMINATION OF THE HEART: S1 and S2. EXAMINATION OF THE LUNGS: Bilateral breath sounds are heard. ABDOMEN: Soft, nontender. Examination of lower extremities shows no significant edema. 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 Labs show sodium 141, potassium 3.9, BUN 81, serum creatinine 2.4 mg/dL. Hemoglobin was 8.5 g/dL today. ASSESSMENT: 1. Chronic kidney disease, NKF stage IV, secondary to diabetic nephropathy and nephrosclerosis with baseline creatinine around 2 mg/dL. 2. Mild acute kidney injury secondary to anemia, status post packed RBC transfusion. Currently patient has good urine output. Serum creatinine is at 2.4 mg/dL. She is not on any diuretics. I have encouraged her to increase his oral intake. 3. Chronic atrial fibrillation. 4. Chronic obstructive pulmonary disease, maintained on oral dose of prednisone. 5. Gastrointestinal bleed, status post swallowing of the capsule, currently waiting further information. 6. EGD, initially did not show any active bleeding except for erosive esophagitis. PLAN: Repeat labs in a.m. Encourage increased oral intake.
--- NOTE | 2016-11-04 13:31 | P.PN ---
Progress Note - Text DATE OF SERVICE: 11/04/2016 PRESENTING COMPLAINT: Black stools INTERVAL HISTORY: Patient admitted with black stools, symptomatic. EGD negative per Dr. Prieto. Lyrica reduced because of lethargy. Capsule endoscopy completed initial findings old blood suspected in distal small bowel possibly the right colon. Poor visibility secondary to bilious fluid and stool. She will be prepped for colonoscopy tomorrow. EEG completed as well. Today patient walked from the wheelchair to the bed with standby assist, no dizziness, no lightheadedness. No further bleeding or black stools. Patient appears fully awake and alert, appears comfortable, talkative, making some jokes. Discussion had with both patient and daughter regarding plan for care, questions answered, discharge plan also discussed. REVIEW OF SYSTEMS: Done for constitutional ,cardiovascular, GI, pulmonary, neurologic with relevant findings as above. CURRENT MEDICATIONS: Allopurinol, Lasix, Lantus, prednisone. PHYSICAL EXAM: VITAL SIGNS: Temperature 97.0, pulse 70 respiratory rate 16 blood pressure 143/81, oxygen saturation 98% on room air GENERAL APPEARANCE: Sitting on the bed, comfortable. EYES: Pupils equal. Conjunctiva normal NECK: JVD not raised. Mass not palpable. RESPIRATORY: Respiratory effort normal. Lungs decreased in the bases to auscultation. CARDIOVASCULAR: Sounds Irregular . No edema. ABDOMEN: Soft. Liver and spleen not palpable. No tenderness. No mass palpable. PSYCHIATRY: Alert and oriented 3, Mood and affect normal . INVESTIGATIONS: White blood cell count 9.9, hemoglobin 8.5, platelet count 150, sodium 141, potassium 3.9. BUN 81, creatinine 2.40 Capsule endoscopy: Low blood suspected in the distal small bowel in the right colon. Poor visibility secondary to bilious fluid stool. EEG pending. ASSESSMENT: 1. Acute GI bleed, EGD unremarkable, small bowel capsule study done. 2. Known history of gastric antral ulcer, EGD negative not on any NSAIDs or Coumadin product. 3. Acute blood loss anemia, s/p 2 units of blood hemoglobin currently stable. 3. Acute metabolic encephalopathy, stabilized 4. Moderate persistent asthma 5. Chronic congestive heart failure from systolic dysfunction ejection fraction 40-45% from hypertensive heart disease, controlled 6. Persistent atrial flutter, controlled 7.. Essential hypertension 8. 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 9. Peripheral arterial disease. 10. Primary osteoarthritis of multiple joints bilaterally. 11. Sick sinus syndrome with pacemaker in place. 12. Erosive esophagitis, secondary to history of NSAID use. PLAN: Capsule endoscopy findings were not completely clear, patient will be NPO after midnight and prepped for colonoscopy on Monday. Will continue with current medication and treatment plan. We'll follow closely MATERIAL CONTROL ANALYST statement: Patient was seen and examined by nurse practitioner Anat Johnston in all elements of the case discussed with attending is Dr. Mejia
[2016-11-04] MEDS ORDERED: PEG 3350-NA SULF,BICARB,CL/KCL 4,000 ML BOTTLE PO ONE (15:00)
[2016-11-04 16:40] LABS: Glucose,Whole Blood 171 mg/dL (75-99)
[2016-11-04 20:18] LABS: Glucose,Whole Blood 109 mg/dL (75-99)
[2016-11-04] MEDS: VERAPAMIL SR 240 MG TABLET.ER PO SCH (22:15)
[2016-11-04] MEDS: MONTELUKAST 10 MG TAB PO SCH (22:15)
[2016-11-05 06:05] LABS: Glucose,Whole Blood 98 mg/dL (75-99)
[2016-11-05] MEDS: INSULIN LISPRO (humaLOG) 300 UNIT/3 ML VIAL SQ SCH ×4 (06:38→20:50)
[2016-11-05 06:41] LABS: Anisocytosis Slight; Basophils % (A) 1 %; CH 31.8; CHCM 33.4; Eosinophils # (A) 0.1 k/uL (0-0.7); Eosinophils % (A) 2 %; HCT 27.2 % (34.0-46.0); HDW 3.07; HGB 8.7 gm/dL (11.4-16.0); Luc % (Auto) 2; Lymphocytes % (A) 23 %; MCH 30.7 pg (25.0-35.0); Macrocytosis Slight; Monocytes # (A) 0.7 k/uL (0-1.0); Monocytes % (A) 8 %; Neutrophils # (A) 5.8 k/uL (1.3-7.7); Neutrophils % (A) 66 %; RBC 2.84 m/uL (3.80-5.40); RDW 17.9 % (11.5-15.5); WBC 8.9 k/uL (3.8-10.6); WBC (Perox) 9.22
[2016-11-05 07:03] LABS: Calcium 9.3 mg/dL (8.4-10.2); Potassium 3.7 mmol/L (3.5-5.1)
[2016-11-05] MEDS: FORMOTEROL FUMARATE 20 MCG/2 ML NEBU INHALATION SCH ×2 (07:49→19:44)
[2016-11-05] MEDS: BUDESONIDE 0.5 MG/2 ML NEBU INHALATION SCH ×2 (07:49→19:44)
--- NOTE | 2016-11-05 07:58 | P.PN ---
Subjective Principal diagnosis: Acute blood loss anemia secondary to gastrointestinal hemorrhage The patient is a pleasant 81-year-old female who had been transferred from [facility] after developing acute blood loss anemia with black tarry stools. She completed a capsule endoscopy with findings preliminary demonstrating possible bleeding along the distal small bowel. As a result, she is undergoing a bowel prep. She sitting at her commode. No reports of abdominal pain. Objective - Vital Signs Vital signs: Vital Signs Temp 97.1 F L 11/05/16 04:00 Pulse 60 11/05/16 07:49 Resp 14 11/05/16 07:49 BP 135/68 11/05/16 04:00 Pulse Ox 93 L 11/05/16 07:52 Intake & Output 11/04/16 11/05/16 11/05/16 18:59 06:59 18:59 Intake Total 910 3500 Balance 910 3500 Weight 89.9 kg Intake: Oral 910 3500 Other: Voiding Method Bedside Commode Bedside Commode # Bowel Movements 1 2 - Exam GENERAL: Well developed and in no acute distress. Pleasant. HEENT: No sclera icterus. Extraocular movements grossly intact. Moist buccal mucosa. Head is atraumatic, normocephalic. Hears conversational speech. No nasal drainage. NECK: Supple without lymphadenopathy. No JV distention. CHEST: Non-labored respirations and equal bilateral excursions. CARDIOVASCULAR: Irregular rate and irregular rhythm. Palpable 2+ radial pulses. ABDOMEN: Soft, nontender. Nondistended. MUSCULOSKELETAL: No clubbing, cyanosis or edema. NEUROLOGIC: No focal or lateralizing signs. PSYCH: Appropriate affect. Alert and oriented to person, place and time. - Labs CBC & Chem 7: 11/05/16 06:05 11/05/16 06:05 Labs: Abnormal Lab Results - Last 24 Hours (Table) 11/04/16 11/04/16 11/04/16 Range/Units 11:53 16:38 20:17 RBC (3.80-5.40) m/uL Hgb (11.4-16.0) gm/dL Hct (34.0-46.0) % RDW (11.5-15.5) % Chloride (98-107) mmol/L BUN (7-17) mg/dL Creatinine (0.52-1.04) mg/dL Glucose (74-99) mg/dL POC Glucose (mg/dL) 152 H 171 H 109 H (75-99) mg/dL 11/05/16 11/05/16 Range/Units 06:05 06:05 RBC 2.84 L (3.80-5.40) m/uL Hgb 8.7 L (11.4-16.0) gm/dL Hct 27.2 L (34.0-46.0) % RDW 17.9 H (11.5-15.5) % Chloride 110 H (98-107) mmol/L BUN 67 H (7-17) mg/dL Creatinine 2.07 H (0.52-1.04) mg/dL Glucose 100 H (74-99) mg/dL POC Glucose (mg/dL) (75-99) mg/dL Assessment and Plan (1) GI bleed Status: Suspected (2) Anemia Status: Chronic (3) Atrial fibrillation Status: Acute (4) Chronic a-fib Status: Chronic (5) GI bleed Status: Acute (6) Hypertension Status: Acute (7) Obesity Status: Acute (8) Diabetes mellitus Status: Chronic Plan: 1. Agree with colonoscopy per GI. 2. Continue with bowel prep. 3. Gen. surgery on standby regarding any need for immediate surgical intervention.
--- NOTE | 2016-11-05 08:07 | PN ---
DATE OF SERVICE: 11/04/2016 ATTENDING NOTE: This patient was seen and examined by me earlier today. I reviewed the note of my nurse practitioner, Ms. Johnston. I reviewed, discussed with additional findings below. This patient presented with black stools. EGD was negative. Had capsule endoscopy study done. Preliminary report showed old blood probably in the distal small bowel or the right colon. The patient is getting prepared for the colonoscopy. Last night I put the patient on a smaller dose of Lyrica after holding it for 24 hours. The patient is awake and alert. Pain is well controlled on the lower dose of Lyrica. On exam: ABDOMEN: Soft, nontender. LUNGS: Slightly decreased breath sounds. ASSESSMENT: Acute gastrointestinal bleed. Workup remains in place, for colonoscopy tomorrow. Care was discussed at length with the patient. Pending colonoscopy. Continue the current dose of Neurontin.
[2016-11-05] MEDS ORDERED: LACTATED RINGERS 1,000 ML IV ONE (08:09)
[2016-11-05] MEDS ORDERED: PROPOFOL 10 MG/ML 20 ML VIAL IV ONE (08:10)
--- NOTE | 2016-11-05 08:46 | P.PCN ---
Date of Procedure: 11/05/16 Preoperative Diagnosis: Postoperative Diagnosis: Procedure(s) Performed: Procedure: Total colonoscopy. Preoperative diagnosis: GI bleeding. Postoperative diagnosis: 1. Diffuse diverticulosis with no evidence of acute diverticulitis, strictures, polyps, cancer or other potential sources of bleeding. 2. No evidence of bleeding at the time of this exam. Preparation: GoLYTELY prep. Sedation: Was provided by anesthesia. Brief clinical history: The patient is an 81-year-old female who witnessed a black stool prior to her transfer from [facility]. She EGD evaluation with general surgery with no evidence of active bleeding or peptic ulcer disease. She had a capsule endoscopy with no definite source of bleeding. The patient had colonoscopy many years ago. The details are summarized in the history and physical and dictated consultation. This evaluation is to assess for possible source of bleeding in the colon. Procedure: With the patient on her left lateral decubitus position and after informed consent and adequate sedation, the perianal area was inspected and it did not show any fissures or fistulas. There were no masses felt on digital rectal examination. The Olympus CFQ 160L video colonoscope was then inserted in the rectum in the usual fashion and advanced to the cecum. There were multiple diverticular orifices seen scattered along the length of the bowel wall more on the left side but no evidence of acute diverticulitis or strictures. No polyps or tumors were seen or any mucosal abnormalities or any angiectasia or bleeding. I noted the PillCam in the cecum. I retroflexed the endoscope in the rectum before the endoscope was withdrawn. Low-grade internal hemorrhoids were noted but they were not bleeding. The patient tolerated the procedure well. Plan: The patient was reassured. Will allow diet and continue to monitor blood counts. Further plans based on her course. Implants: Indications for Procedure: Operative Findings: Description of Procedure:
[2016-11-05] MEDS: PREGABALIN 25 MG CAP PO SCH ×2 (09:00→20:54)
[2016-11-05] MEDS: METOPROLOL TARTRATE 50 MG TAB PO SCH ×2 (09:00→20:51)
[2016-11-05] MEDS: ALLOPURINOL 100 MG TAB PO SCH (09:00)
[2016-11-05] MEDS: PANTOPRAZOLE 40 MG TABLET PO SCH (09:00)
[2016-11-05] MEDS: CHOLECALCIFEROL 1,000 UNIT TAB PO SCH (09:00)
[2016-11-05] MEDS: predniSONE 5 MG TAB PO SCH (09:01)
[2016-11-05] MEDS: ACETAMINOPHEN TAB 325 MG TAB PO PRN ×2 (09:04→20:54)
[2016-11-05 09:59] VITALS: RESP 18
[2016-11-05 12:09] LABS: Glucose,Whole Blood 150 mg/dL (75-99)
--- NOTE | 2016-11-05 14:22 | P.PN ---
Progress Note - Text DATE OF SERVICE: 11/05/2016 PRESENTING COMPLAINT: Black stools INTERVAL HISTORY: Patient admitted with black stools, symptomatic. EGD negative per Dr. Prieto. Lyrica reduced because of lethargy. Patient's pain remains well controlled on the lower dose. Capsule endoscopy completed initial findings old blood suspected in distal small bowel possibly the right colon. Colonoscopy completed diffuse diverticulosis no evidence of acute diverticulitis strictures polyps cancer other potential sources of bleeding. EEG completed waiting dictated report. Today patient lying in bed comfortable, no dizziness, no lightheadedness. No further bleeding or black stools. Diet resumed. Patient fully awake and alert, talkative. Discussion had with both patient and daughter regarding plan for care, questions answered, discharge plan also discussed. REVIEW OF SYSTEMS: Done for constitutional ,cardiovascular, GI, pulmonary, neurologic with relevant findings as above. CURRENT MEDICATIONS: Allopurinol, Lasix, Lantus, prednisone, Protonix PHYSICAL EXAM: VITAL SIGNS: Temperature 96.9, pulse 62, respirations 18, blood pressure 135/75, oxygen saturation 96% on room air. GENERAL APPEARANCE: Lying in the bed, comfortable. EYES: Pupils equal. Conjunctiva normal NECK: JVD not raised. Mass not palpable. RESPIRATORY: Respiratory effort normal. Lungs decreased in the bases to auscultation. CARDIOVASCULAR: Sounds Irregular . No edema. ABDOMEN: Soft. Liver and spleen not palpable. No tenderness. No mass palpable. PSYCHIATRY: Alert and oriented 3, Mood and affect normal . INVESTIGATIONS: White blood cell count 8.9, hemoglobin 8.7, platelet count 156, BUN 67, creatinine 2.07. Accu-Cheks noted. Colonoscopy: Diffuse diverticulosis no evidence of acute diverticulitis, strictures polyps cancer or other sources of bleeding. No active bleeding seen. Capsule endoscopy: Low blood suspected in the distal small bowel in the right colon. Poor visibility secondary to bilious fluid stool. EEG pending. ASSESSMENT: 1. Acute GI bleed, colonoscopy as above no further bleeding. 2. Known history of gastric antral ulcer, EGD and colonoscopy negative, not on any NSAIDs or Coumadin product. 3. Acute blood loss anemia, s/p 2 units of blood hemoglobin currently stable. 3. Acute metabolic encephalopathy, stabilized 4. Moderate persistent asthma 5. Chronic congestive heart failure from systolic dysfunction ejection fraction 40-45% from hypertensive heart disease, controlled 6. Persistent atrial flutter, controlled 7.. Essential hypertension 8. 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 9. Peripheral arterial disease. 10. Primary osteoarthritis of multiple joints bilaterally. 11. Sick sinus syndrome with pacemaker in place. 12. Erosive esophagitis, secondary to history of NSAID use. PLAN: Continue to monitor labs, await EEG results, GI studies as above, likely discharge home tomorrow. We'll follow closely. [employer] statement: Patient was seen and examined by nurse practitioner Anat Johnston in all elements of the case discussed with attending is Dr. Mejia
[2016-11-05 17:35] LABS: Glucose,Whole Blood 122 mg/dL (75-99)
[2016-11-05 20:51] LABS: Glucose,Whole Blood 182 mg/dL (75-99)
[2016-11-05] MEDS: MONTELUKAST 10 MG TAB PO SCH (20:51)
[2016-11-05] MEDS: VERAPAMIL SR 240 MG TABLET.ER PO SCH (20:51)
--- NOTE | 2016-11-05 21:34 | P.PN ---
Subjective Principal diagnosis: Acute blood loss anemia secondary to gastrointestinal hemorrhage The patient is an 81-year-old female who completed a lower endoscopy earlier today. Findings were consistent with diverticulosis. No acute bleeding was identified. Patient is resting comfortably. Her son is at bedside. No reports of abdominal pain. Objective - Vital Signs Vital signs: Vital Signs Temp 98.2 F 11/05/16 20:19 Pulse 87 11/05/16 20:19 Resp 18 11/05/16 20:19 BP 154/76 11/05/16 20:19 Pulse Ox 98 11/05/16 20:19 Intake & Output 11/05/16 11/05/16 11/06/16 06:59 18:59 06:59 Intake Total 3500 200 Balance 3500 200 Weight 89.9 kg Intake: IV 200 Oral 3500 Other: Voiding Method Bedside Commode Toilet # Bowel Movements 2 0 - Exam GENERAL: Well developed and in no acute distress. She is resting comfortably. HEENT: No sclera icterus. Extraocular movements grossly intact. Moist buccal mucosa. Head is atraumatic, normocephalic. Hears conversational speech. No nasal drainage. NECK: Supple without lymphadenopathy. CHEST: Non-labored respirations and equal bilateral excursions. CARDIOVASCULAR: Irregular rate and irregular rhythm. ABDOMEN: Soft, nontender. Nondistended. MUSCULOSKELETAL: No clubbing, cyanosis or edema. NEUROLOGIC: No focal or lateralizing signs. - Labs CBC & Chem 7: 11/05/16 06:05 11/05/16 06:05 Labs: Abnormal Lab Results - Last 24 Hours (Table) 11/05/16 11/05/16 11/05/16 Range/Units 06:05 06:05 11:54 RBC 2.84 L (3.80-5.40) m/uL Hgb 8.7 L (11.4-16.0) gm/dL Hct 27.2 L (34.0-46.0) % RDW 17.9 H (11.5-15.5) % Chloride 110 H (98-107) mmol/L BUN 67 H (7-17) mg/dL Creatinine 2.07 H (0.52-1.04) mg/dL Glucose 100 H (74-99) mg/dL POC Glucose (mg/dL) 150 H (75-99) mg/dL 11/05/16 11/05/16 Range/Units 17:06 20:48 RBC (3.80-5.40) m/uL Hgb (11.4-16.0) gm/dL Hct (34.0-46.0) % RDW (11.5-15.5) % Chloride (98-107) mmol/L BUN (7-17) mg/dL Creatinine (0.52-1.04) mg/dL Glucose (74-99) mg/dL POC Glucose (mg/dL) 122 H 182 H (75-99) mg/dL Assessment and Plan (1) GI bleed Status: Suspected (2) Anemia Status: Chronic (3) Atrial fibrillation Status: Acute (4) Chronic a-fib Status: Chronic (5) GI bleed Status: Acute (6) Hypertension Status: Acute (7) Obesity Status: Acute (8) Diabetes mellitus Status: Chronic (9) Diverticulosis Status: Acute Plan: 1. Recommend conservative management. 2. I discussed with her son at bedside that given her present risks, surgical intervention is high risk. 3. Patient may be discharged when medically stable.
[2016-11-06 06:31] LABS: Glucose,Whole Blood 99 mg/dL (75-99)
[2016-11-06 06:38] LABS: Anisocytosis Slight; Basophils % (A) 0 %; CH 31.8; CHCM 33.6; Eosinophils # (A) 0.2 k/uL (0-0.7); Eosinophils % (A) 2 %; HCT 27.4 % (34.0-46.0); HDW 3.24; HGB 9.1 gm/dL (11.4-16.0); Luc # (Auto) 0.35; Luc % (Auto) 3; Lymphocytes # (A) 2.5 k/uL (1.0-4.8); Lymphocytes % (A) 23 %; MCH 31.9 pg (25.0-35.0); MCHC 33.4 g/dL (31.0-37.0); MCV 95.6 fL (80.0-100.0); Macrocytosis Slight; Mean Platelet Volume 8.7; Monocytes # (A) 0.9 k/uL (0-1.0); Monocytes % (A) 8 %; Neutrophils % (A) 64 %; RBC 2.87 m/uL (3.80-5.40); WBC 10.9 k/uL (3.8-10.6); WBC (Perox) 10.91
[2016-11-06] MEDS: INSULIN LISPRO (humaLOG) 300 UNIT/3 ML VIAL SQ SCH (06:46)
[2016-11-06] MEDS: PANTOPRAZOLE 40 MG TABLET PO SCH (06:54)
[2016-11-06 06:56] LABS: Calcium 9.4 mg/dL (8.4-10.2); Potassium 3.8 mmol/L (3.5-5.1)
[2016-11-06] MEDS: PREGABALIN 25 MG CAP PO SCH (08:07)
[2016-11-06] MEDS: METOPROLOL TARTRATE 50 MG TAB PO SCH (08:08)
[2016-11-06] MEDS: ALLOPURINOL 100 MG TAB PO SCH (08:08)
[2016-11-06] MEDS: CHOLECALCIFEROL 1,000 UNIT TAB PO SCH (08:08)
[2016-11-06] MEDS: predniSONE 5 MG TAB PO SCH (08:08)
[2016-11-06 08:18] VITALS: BP 148/94; PULSE 84; TEMP 96.9
--- NOTE | 2016-11-06 09:43 | EEG ---
DATE OF SERVICE: 11/05/2016 INDICATIONS FOR EXAMINATION: Altered mental status. AGE: 81Y DESCRIPTION OF PROCEDURE: This EEG was performed using a 21-channel digital electroencephalograph, following international 10 to 20 system. DESCRIPTION OF RECORDING: From the beginning of the tracing, with the patient's eyes closed, the background rhythm was mostly consisting of 7 Hz theta frequency in the posterior occipital leads. No obvious asymmetry is seen. Photic stimulation was performed with no driving response seen. No pathological waves were elicited. Hyperventilation was not performed. Occasional muscle and movement artifacts are seen. Later in the tracing, the patient does reach stage 2 of sleep and occasional sleep spindles are seen. No epileptiform discharges were seen. EKG leads showed an irregular irregular rhythm with a normal rate. INTERPRETATION: This asleep and awake EEG is abnormal due to the presence of generalized slowing of the background rhythm, mostly in the theta range. This is consistent with mild encephalopathy. Also, her EKG leads showed an irregularly irregular rhythm. No epileptiform discharges were seen. The absence of epileptiform discharges does not rule out the diagnosis of epilepsy. Therefore, clinical correlation is recommended.
--- NOTE | 2016-11-07 06:06 | DS ---
DATE OF ADMISSION: 10/31/2016 DATE OF DISCHARGE: 11/06/2016 FINAL DIAGNOSES: 1. Acute gastrointestinal bleed, likely from diverticulosis. 2. Acute blood loss anemia, status post 2 units of blood from above. 3. Acute metabolic encephalopathy, probably from Lyrica, improved after cutting back dose. 4. Moderate persistent asthma. 5. Chronic congestive heart failure from systolic dysfunction; ejection fraction 40% to 45% from hypertensive heart disease. 6. Persistent atrial flutter, controlled. 7. Essential hypertension. 8. 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 9. Peripheral arterial disease. 10. Primary osteoarthritis of multiple joints, bilaterally. 11. Sick sinus syndrome with a pacemaker in place. HOSPITAL COURSE: This patient presented with black stools. EGD was unremarkable. Patient had a capsule study done that showed some bleeding. Some dark blood in the distal small bowel and right-sided colon. Colonoscopy showed diverticular disease, which probably is the source of the patient's bleeding. Patient was lethargic, felt to be encephalopathic. Does of Lyrica was cut back. Patient's pain is well controlled on the new dose and ( ) awake. The patient's hemoglobin 8.7 and BUN and creatinine 67 and 2.07. ( ) care was discussed in detail with the patient, questions were answered. ON EXAMINATION: LUNGS: Fair air entry. CARDIOVASCULAR: Heart sounds irregular. CONSULTATIONS: Dr. Joaquina Guzman and Dr. Montoya from GI; Dr. Sandoval from general surgery. DISCHARGE MEDICATIONS: 1. Singulair 10 mg q.h.s. 2. Pulmicort 0.5 mg inhalation b.i.d. 3. Lopressor 50 mg p.o. b.i.d. 4. Calcitriol 0.25 mcg p.o. daily. 5. Perforomist 20 mcg inhalation b.i.d. 6. Lantus 10 units subcu q.h.s. 7. NovoLog per scale. 8. Allopurinol 100 mg daily. 9. Atrovent 0.5 nebulizer q.6 p.r.n. 10. Xopenex q.4 p.r.n. 11. Tylenol 500 q.6 p.r.n. 12. Biotin 5 mg a day. 13. Vitamin D3, 2000 units p.o. daily. 14. Sodium bicarb 325 p.o. daily. 15. Verelan PM 200 mg p.o. q.h.s. 16. Prednisone 5 mg daily. 17. Prilosec 20 mg with breakfast. 18. Lyrica 25 mg b.i.d. reduced dose. 19. Senokot-S 1 tablet p.o. daily p.r.n. for constipation. 20. Aldactone 25 mg p.o. daily. Follow up with Dr. Turner in 3 days. Patient should have a CBC, BMP checked in about 7 days. Discharge planning more than 35 minutes.
== END 2016-11-06 09:26 | disposition home health service (06) | DRG 377 ==
LOC: EC 14:08 → 6SEL 14:32
PROVIDERS: ADMIT Hospitalist; ATTEND Hospitalist
PROC: 0DJ08ZZ Inspection of Upper Intestinal Tract, Via Natural or Artificial Opening Endoscopic (ICD-10-PCS; 2016-11-01)
PROC: 30233N1 Transfusion of Nonautologous Red Blood Cells into Peripheral Vein, Percutaneous Approach (ICD-10-PCS; 2016-11-02)
PROC: 0DJD8ZZ Inspection of Lower Intestinal Tract, Via Natural or Artificial Opening Endoscopic (ICD-10-PCS; principal; 2016-11-05 08:30)
DX: K57.31 Diverticulosis of large intestine without perforation or abscess with bleeding (principal); G93.41 Metabolic encephalopathy; N18.4 Chronic kidney disease, stage 4 (severe); E11.21 Type 2 diabetes mellitus with diabetic nephropathy; I13.0 Hypertensive heart and chronic kidney disease with heart failure and stage 1 through stage 4 chronic kidney disease, or unspecified chronic kidney disease; N17.9 Acute kidney failure, unspecified; I95.9 Hypotension, unspecified; I50.22 Chronic systolic (congestive) heart failure; D62 Acute posthemorrhagic anemia; I48.92 Unspecified atrial flutter; K22.10 Ulcer of esophagus without bleeding; E11.22 Type 2 diabetes mellitus with diabetic chronic kidney disease; J44.9 Chronic obstructive pulmonary disease, unspecified; I48.2 Chronic atrial fibrillation; E11.51 Type 2 diabetes mellitus with diabetic peripheral angiopathy without gangrene; E66.01 Morbid (severe) obesity due to excess calories; J45.40 Moderate persistent asthma, uncomplicated; K64.8 Other hemorrhoids; K21.9 Gastro-esophageal reflux disease without esophagitis; K31.7 Polyp of stomach and duodenum; I25.10 Atherosclerotic heart disease of native coronary artery without angina pectoris; M19.91 Primary osteoarthritis, unspecified site; Z95.0 Presence of cardiac pacemaker; Z68.36 Body mass index [BMI] 36.0-36.9, adult; H91.90 Unspecified hearing loss, unspecified ear; Z87.11 Personal history of peptic ulcer disease; Z90.49 Acquired absence of other specified parts of digestive tract; Z98.49 Cataract extraction status, unspecified eye; Z90.710 Acquired absence of both cervix and uterus; Z88.0 Allergy status to penicillin; Z88.1 Allergy status to other antibiotic agents; Z88.5 Allergy status to narcotic agent; Z88.2 Allergy status to sulfonamides; Z88.8 Allergy status to other drugs, medicaments and biological substances; Z79.51 Long term (current) use of inhaled steroids; Z79.4 Long term (current) use of insulin; Z79.52 Long term (current) use of systemic steroids; Z79.899 Other long term (current) drug therapy
CPT/HCPCS: 36415; 36600; 43235; 70450; 80048; 80053; 82140; 82550; 82553; 82805; 83036; 83605; 83690; 83735; 84484; 85025; 85610; 85730; 86850; 86900; 86901; 86920; 91110; 94640; 94760; 95819; 96360; 99285

== ENCOUNTER 2016-12-15 21:26 | Emergency (ER) | payer MEDICARE ==
--- NOTE | 2016-12-15 23:11 | ED ---
General Adult HPI - General Chief complaint: Extremity Injury, Lower Stated complaint: Left Femur Fracture Time Seen by Provider: 12/15/16 21:41 Source: patient, family, EMS, RN notes reviewed, old records reviewed Mode of arrival: EMS Limitations: no limitations - History of Present Illness Initial comments: Chief complaint history of present illness this is an 81-year-old female here with her daughter. The patient reportedly stumbled forward while reaching for her walker landing on her left knee. She went to her local hospital in [place]. X-rays are taken showing evidence of a distal left femur fracture was comminuted and intra-articular. She was sent here for evaluation and management. X-rays were reviewed by the on-call orthopedic surgeon Dr. Elena who states that with this fracture and multiple comorbidities she will be better served to be at the trauma center. I called and discussed the case with Dr. Pittman at [facility] ER he accepts the patient for transfer, evaluation and management. - Related Data Home Medications Medication Instructions Recorded Confirmed Montelukast [Singulair] 10 mg PO HS 09/29/13 12/15/16 Budesonide [Pulmicort] 0.5 mg INHALATION RT-BID 06/30/14 12/15/16 Calcitriol 0.25 mcg PO DAILY 08/01/14 12/15/16 Formoterol Fumarate [Perforomist] 20 mcg INHALATION RT-BID 08/01/14 12/15/16 Insulin Glargine [Lantus] 10 unit SQ HS 08/01/14 12/15/16 Insulin Aspart [NovoLOG] See Protocol SQ AC-TID 05/04/16 12/15/16 Allopurinol [Zyloprim] 100 mg PO DAILY 07/14/16 12/15/16 Ipratropium Nebulized [Atrovent 0.5 mg INHALATION RT-Q6H PRN 07/14/16 12/15/16 Nebulized] Levalbuterol HCl [Xopenex 0.63 mg INHALATION RT-Q4H PRN 07/14/16 12/15/16 Nebulized] Acetaminophen Tab [Tylenol] 500 - 1,000 mg PO Q6HR PRN 10/31/16 12/15/16 Cholecalciferol [Vitamin D3] 5,000 unit PO DAILY 10/31/16 12/15/16 Verapamil HCl [Verelan Pm] 200 mg PO HS 10/31/16 12/15/16 predniSONE 5 mg PO QAM 10/31/16 12/15/16 Furosemide [Lasix] 40 mg PO Q48H 12/15/16 12/15/16 Nystatin 100,000 Unit/gm Powd 1 applic TOPICAL DAILY PRN 12/15/16 12/15/16 [Mycostatin Powder] Previous Rx's Medication Instructions Recorded Metoprolol Tartrate [Lopressor] 50 mg PO BID tab 07/10/14 Omeprazole [PriLOSEC] 20 mg PO AC-BRKFST #30 cap 11/05/16 Pregabalin [Lyrica] 25 mg PO BID #60 cap 11/05/16 Allergies Allergy/AdvReac Type Severity Reaction Status Date / Time penicillin G Allergy Severe Anaphylaxis Verified 10/31/16 15:10 albuterol Allergy Rapid Verified 10/31/16 15:10 Heart Rate arformoterol tartrate Allergy Dyspnea Verified 10/31/16 15:10 [From Brovana] ceftriaxone sodium Allergy SOB Verified 10/31/16 15:10 [From Rocephin] sulfamethoxazole Allergy Unknown Verified 10/31/16 15:10 [From Bactrim] trimethoprim [From Bactrim] Allergy Unknown Verified 10/31/16 15:10 meperidine HCl [From Demerol] AdvReac Nausea & Verified 10/31/16 15:10 Vomiting Sulfa (Sulfonamide AdvReac Unknown Verified 10/31/16 15:10 Antibiotics) Review of Systems ROS Statement: Those systems with pertinent positive or pertinent negative responses have been documented in the HPI. Review of systems. The patient does not complain of headache or chest pain or shortness of breath. She has left knee pain. She arrived from [facility] via ambulance with left leg OCL splinted. The patient's alert and oriented. She has no other complaints or other injuries. She did not lose consciousness when she fell. No other injuries. All systems are reviewed. Past medical problems are multiple including A. fib but not on thinners. She has COPD, insulin-dependent diabetes mellitus, previous to GI bleeds for which they stopped the thinners months ago. She's had a hearing disorder, hypertension osteoarthritis, pneumonia, chronic renal failure, vascular disorder ,. ALLERGIES include penicillin, albuterol, arformoterol tartrate, ceftriaxone , sulfamethoxazole, meperidine ROS Other: All systems not noted in ROS Statement are negative. Past Medical History Past Medical History: Atrial Fibrillation, Asthma, COPD, Diabetes Mellitus, GI Bleed, Hearing Disorder / Deafness, Hypertension, Osteoarthritis (OA), Pneumonia , Renal Disease, Vascular Disorder Additional Past Medical History / Comment(s): Chronic severe persistent bronchial asthma, chronic renal failure, morbid obesity, chronic atrial fibrillation, previous history of GI bleed attributed to anticoagulation with warfarin and diverticulosis and pyloric polyp, large antral ulceration at the site of a prior polypectomy, and based on that the patient was taken off Coumadin, diabetes mellitus, osteoarthritis, peripheral vascular disease, sick sinus syndrome and the patient has a permanent pacemaker in place, hypertension History of Any Multi-Drug Resistant Organisms: None Reported Past Surgical History: Appendectomy, Heart Catheterization, Hysterectomy, Pacemaker Additional Past Surgical History / Comment(s): cataract surgery 2011 Past Anesthesia/Blood Transfusion Reactions: No Reported Reaction Type of Cardiac Device: Permanent Pacemaker Device Placement Date:: 2011 Past Psychological History: No Psychological Hx Reported Smoking Status: Never smoker Past Alcohol Use History: None Reported Past Drug Use History: None Reported - Past Family History Mother Family Medical History: Cancer Additional Family Medical History / Comment(s): Yahir General Exam - General Exam Comments Initial Comments: General: The patient is awake but fatigued. Answers questions appropriately. Presents emergency room with the distal left femur fracture from [facility]. Vital signs temp 97.0 pulse 52 her story rate 16 pulse ox on percent room air blood pressure 118/58 Eye: Pupils are equal, round and reactive to light, extra-ocular movements are intact ; there is normal conjunctiva bilaterally. No signs of icterus. Ears, nose, mouth and throat: There are moist mucous membranes Neck: The neck is supple, no complaint of neck pain Cardiovascular: History of A. fib, irregular rate and rhythm, current rate 52 Respiratory: Lungs are clear to auscultation, respirations are non-labored, breath sounds are equal. No wheezes. Gastrointestinal: Soft, non-distended, non-tender abdomen without masses or organomegaly noted. There is no rebound or guarding present. . Bowel sounds are unremarkable. Back: No complaint of back pain Musculoskeletal: Patient presents with x-rays from another facility showing distal left femur comminuted intra-articular fracture. Closed. Neurological: Neurovascular status of the foot intact. Skin: No rashes. Limitations: no limitations Course Vital Signs 12/15/16 12/15/16 21:36 21:57 Temperature 97.0 F L Pulse Rate 52 L Respiratory 16 Rate Blood Pressure 118/58 O2 Sat by Pulse 100 Oximetry EKG Findings - EKG Comments: EKG Findings:: EKG performed here showed A. fib rate 94 left axis deviation nonspecific ST-T wave changes. QRS duration [address] QT [address] Tineo Medical Decision Making - Medical Decision Making Medical decision making; review of the chart from [facility]; the patient 's white count is 10.7 hemoglobin 10.7 hematocrit 34.3. Platelets 138, Pictures of the fracture or study by the on-call orthopedic surgeon, Dr. King. He informed me that he feels the patient is best served by going to a orthopedic trauma service to treat and manage a comminuted distal left femur with intra-articular fractures. Patient also has multiple comorbidities. This is explained to the daughter and she agrees and has chosen [facility]. I spoke with Dr. Pittman in the ER had [facility] he accepts the patient for transfer to the emergency room. The patient is stable to be transported via ACLS qualified EMS. Analgesics be administered as needed. OCL splint intact on the leg. Neurovascular status of foot is intact. Patient's answering questions appropriately. Daughter agrees with transfer. Disposition Clinical Impression: Closed comminuted intra-articular fracture of distal end of left femur, History of COPD, History of chronic atrial fibrillation, History of chronic renal failure Disposition: OTHER INSTITUTION NOT DEFINED Condition: Serious Referrals: Wilfred Turner MD [Primary Care Provider] - 1-2 days - Out of Hospital Transfer - Req. Specs Out of Hospital Transfer - Requested Specifics: Other Emergency Center ( Transfer to [facility])
[2016-12-15 23:18] VITALS: BP 165/87; PULSE 77; RESP 18
[2016-12-15 23:53] VITALS: TEMP 98.8
== END 2016-12-15 23:53 | disposition other institution (70) ==
LOC: EC 21:26
DX: S72.492A Other fracture of lower end of left femur, initial encounter for closed fracture (principal); J44.9 Chronic obstructive pulmonary disease, unspecified; I48.2 Chronic atrial fibrillation; E11.22 Type 2 diabetes mellitus with diabetic chronic kidney disease; N18.9 Chronic kidney disease, unspecified; I10 Essential (primary) hypertension; M19.90 Unspecified osteoarthritis, unspecified site; E66.01 Morbid (severe) obesity due to excess calories; Z79.4 Long term (current) use of insulin; Z79.51 Long term (current) use of inhaled steroids; Z79.52 Long term (current) use of systemic steroids; Z79.899 Other long term (current) drug therapy; Z88.0 Allergy status to penicillin; Z88.1 Allergy status to other antibiotic agents; Z88.2 Allergy status to sulfonamides; Z88.5 Allergy status to narcotic agent; Z88.8 Allergy status to other drugs, medicaments and biological substances; W19.XXXA Unspecified fall, initial encounter; Y92.009 Unspecified place in unspecified non-institutional (private) residence as the place of occurrence of the external cause
CPT/HCPCS: 93005; 99285